=== PATIENT | female | born 1940 | race Caucasian/White ===

== ENCOUNTER → 2016-10-06 | Outpatient (CLI) | payer OTHER, MEDICARE ==
--- NOTE | 2016-10-06 15:29 | MR ---
MRI of the Left Shoulder History: Shoulder pain, impingement syndrome. Technique: Axial proton density, oblique coronal and sagittal T1 and T2 sequences were acquired. Findings: The supraspinatus tendon is diseased. There is evidence of undersurface partial-thickness t ear of the anterior distal fibers of supraspinatus, involving the articular surface 50% distally. The bursal surface fibers remain intact, although markedly attenuated, findings are compatible with a hi gh-grade partial tear. More posteriorly, there is evidence of infraspinatus tendinosis and fraying wi th small linear intrasubstance longitudinal split tears of distal fibers proximal to the greater tube rosity. Fluid appears to extend through the small split injuries into the subacromial bursa overlying the distal infraspinatus. Subscapularis tendinosis is present with increased T2 signal throughout the distal tendon, without te ar. Teres minor is intact. Long head biceps tendon is normally positioned and intact. Degenerative maceration of the superior labrum underneath the biceps anchor is present, without linea r tear or detachment. The articular cartilage of the glenohumeral joint is intact. The acromioclavicular joint is benign in features, with minimal capsular edema. Impression: 1. High-grade partial tear anterior distal fibers of supraspinatus at the greater tuberosity, with a few intact bursal surface fibers distally. 2. Longitudinal split tears involving the distal fibers of infraspinatus, multiple in number and smal l in size, with fluid extending through the small split injuries into the overlying subacromial bursa . 3. Minimal degenerative maceration superior glenoid labrum, without linear tear or detachment.
== END ==
LOC: FIMAGING 12:51
PROVIDERS: ATTEND Orthopaedic Surgery
DX: S46.812A Strain of other muscles, fascia and tendons at shoulder and upper arm level, left arm, initial encounter (principal)

== ENCOUNTER 2017-04-05 13:16 | Inpatient (IN) | payer OTHER, MEDICARE ==
[2017-04-05] MEDS ORDERED: ONDANSETRON DISINTEGRATING 4 MG TAB ONE (14:39)
[2017-04-05] MEDS ORDERED: ONDANSETRON DISINTEGRATING 4 MG TAB PO ONE (14:42)
[2017-04-05] MEDS ORDERED: ONDANSETRON 4 MG/2 ML VIAL ONE (15:39)
--- NOTE | 2017-04-05 15:47 | EDPHY ---
H & P Stated Complaint: n/v/d since this morning Time Seen by Provider: 04/05/17 15:47 - Personal History Current Tetanus/Diphtheria Vaccine: Yes - Medical/Surgical History Hx Asthma: No Hx Chronic Respiratory Disease: No Hx Diabetes: No Hx Cardiac Disease: No Hx Renal Disease: No Hx Cirrhosis: No Hx Alcoholism: No Hx HIV/AIDS: No Hx Splenectomy or Spleen Trauma: No Other PMH: PMH: HTN, vasculitis of kidney, hypothyroidism. PSH: ari, shoulder , left lung biopsy, Left lingular lower lobectomy, - Social History Smoking Status: Never smoked Constitutional: Initial Vital Signs Temperature (C) 36.5 C 04/05/17 13:21 Heart Rate 92 04/05/17 13:21 Respiratory Rate 18 04/05/17 13:21 Blood Pressure 141/70 H 04/05/17 13:21 O2 Sat (%) 95 04/05/17 13:21 O2 Delivery Mode Room Air Allergies/Adverse Reactions: hydrochlorothiazide Allergy (Severe, Verified 04/05/17 13:19) Rash Home Medications: Medication Instructions Recorded ALENDRONATE SODIUM [Fosamax 35mg] 35 mg PO WIN 02/01/16 Acetaminophen [Tylenol 325mg (*)] 325 - 650 mg PO DAILY PRN 02/01/16 Amlodipine Besylate 10 mg PO DAILY 02/01/16 Eszopiclone 3 mg PO HS PRN 02/01/16 Levothyroxine [Synthroid 75 mcg 75 mcg PO DAILY06 02/01/16 (*)] Metoprolol Succinate Xr [Toprol Xl 12.5 mg PO DAILY 02/01/16 25 mg (*)] Medical Decision Making - Diagnostics Imaging Results: Imaging Impressions Brain MRI 04/05/17 15:55 Impression: 1. Multiple bilateral cerebral and left cerebellar embolic acute lacunar infarcts, especially in the left cerebellar hemisphere and vermis, probably from cardiac emboli. 2. No acute hemorrhage, hydrocephalus, or mass effect. Findings and recommendations discussed with Emergency Department physician, Alan Bray M.D., at 1710 hours, on April 05, 2017. Final report concurs with initial preliminary interpretation. Imaging: Discussed imaging studies w/ dairy clerk Radiologist ED Course/Re-evaluation: CHIEF COMPLAINT: Dizziness with severe nausea and vomiting HISTORY OF PRESENT ILLNESS: 76-year-old female who was up camping at [facility]. She has not felt well for the last couple of days. She woke up this morning at 4am, 13.5 hours ago, and turned her head and suddenly felt quite dizzy. She was dizzy to the point where she had to crawl back to the camper to use the toilet and throw up because of the dizziness. Every time she moves or turns her head or changes positions it exacerbates the dizziness. When she lays completely still with her eyes closed the dizziness seems to extinguish. She only has the nausea when she has the dizziness. She denies any focal weakness of any body part or any extremity. She states she feels like she has severe motion sickness. She denies having this in the past. She denies any recent trauma or traumatic brain injury. She denies any recent illness. REVIEW OF SYSTEMS: A 10 point review of systems was performed and is negative with the exception of the elements mentioned in the history of present illness. PHYSICAL EXAM: HR, BP, O2 Sat, RR. Temp noted General Appearance: Alert, well hydrated, appropriate, and non-toxic appearing. Head: Atraumatic without scalp tenderness or obvious injury Eyes: Pupils equal, round, reactive to light and accommodation, EOMI, no trauma , no injection. Ears: Clear bilaterally, no perforation, normal landmarks Nose: Atraumatic, no rhinorrhea, clear. Throat: There is no erythema or exudates, no lesions, normal tonsils, mucus membranes moist. Neck: Supple, 2+ carotid upstroke, nontender, no lymphadenopathy. Respiratory: No retractions, no distress, no wheezes, and no accessory muscle use. Lungs are clear to auscultation bilaterally. Cardiovascular: Regular rate and rhythm, no murmurs, rubs, or gallops. Bilateral carotid, radial, dorsalis pedis, and posterior tibial pulses intact. Good capillary refill all extremities. Gastrointestinal: Abdomen is soft, nontender, non-distended, no masses, no rebound, no guarding, no peritoneal signs. Musculoskeletal: Normal active ROM of all extremities, atraumatic. Neurological: This patient has horizontal nystagmus worse to the right with Spencer maneuver. In addition, her symptoms extinguish rest. She has no focal neurologic deficits. Alert, appropriate, and interactive. The patient has normal DTRs and non-focal cranial nerves, motor, sensory, and cerebellar exam. Skin: No rashes, good turgor, no nodules on palpation. Past medical history: Hypertension Past surgical history: Noncontributory Family history: Noncontributory Social history: , retired, does not abuse tobacco drugs or alcohol DIAGNOSTICS/PROCEDURES/CRITICAL CARE TIME: Study: MRI of the: brain without contrast Indication: dizziness rule out cerebellar infarct Results: MRI scan of the brain was obtained. The results of the study are multiple bilateral cerebral and left cerebellar embolic acute lacunar infarcts, especially in the left cerebellar hemisphere and vermis. No acute hemorrhage, hydrocephalus, or mass effect. The study was read by the radiologist, Dr. Cruz. I viewed the images myself on the PACS system. The 12 lead EKG was interpreted by myself. See hard copy and/or "tracemaster" electronic copy for interpretation. Sinus mechanism. Rate 81. DIFFERENTIAL DIAGNOSIS: The differential diagnosis for the patient's dizziness included but was not limited to peripheral and central causes of vertigo, orthostatic causes including dehydration, cardiogenic and neurogenic causes, and blood loss. MEDICAL DECISION MAKING: Patient is most comfortable completely at rest with her eyes closed. I have given her 25 mg PO Meclizine, and 4mg of Zofran intravenously. We are doing an MRI of her brain to make sure this is not a cerebellar infarct. 17:[address] Cruz, radiologist. MRI shows multiple bilateral cerebral and left cerebellar embolic acute lacunar infarcts, especially in the left cerebellar hemisphere and vermis. No acute hemorrhage, hydrocephalus, or mass effect. Spoke with Dr. Villalta, neurologist. Plan for CTA head and neck. Hold on heparin at this point due to potential for cerebellar bleed. 17:[address] Ham, hospitalist. He accepts admission to med/surg. 17:36 Reassessed patient. Confirmed no history of strokes. Discussed admission. Patient is comfortable with this plan. CT Angiogram pending. - Data Points Laboratory Results: Laboratory Results 04/05/17 15:48 04/05/17 15:48 04/05/17 04/05/17 04/05/17 15:48 15:48 15:48 WBC 11.21 10^3/uL H 10^3/uL (3.80-9.50) RBC 4.86 10^6/uL 10^6/uL (4.18-5.33) Hgb 14.6 g/dL g/dL (12.6-16.3) Hct 42.9 % % (38.0-47.0) MCV 88.3 fL fL (81.5-99.8) MCH 30.0 pg pg (27.9-34.1) MCHC 34.0 g/dL g/dL (32.4-36.7) RDW 13.4 % % (11.5-15.2) Plt Count 239 10^3/uL 10^3/uL (150-400) MPV 9.6 fL fL (8.7-11.7) Neut % (Auto) 93.1 % H % (39.3-74.2) Lymph % (Auto) 3.3 % L % (15.0-45.0) [place] % (Auto) 3.0 % L % (4.5-13.0) Eos % (Auto) 0.0 % L % (0.6-7.6) Baso % (Auto) 0.1 % L % (0.3-1.7) Nucleat RBC Rel Count 0.0 % % (0.0-0.2) Absolute Neuts (auto) 10.43 10^3/uL H 10^3/uL (1.70-6.50) Absolute Lymphs (auto) 0.37 10^3/uL L 10^3/uL (1.00-3.00) Absolute Monos (auto) 0.34 10^3/uL 10^3/uL (0.30-0.80) Absolute Eos (auto) 0.00 10^3/uL L 10^3/uL (0.03-0.40) Absolute Basos (auto) 0.01 10^3/uL L 10^3/uL (0.02-0.10) Absolute Nucleated RBC 0.00 10^3/uL 10^3/uL (0-0.01) Immature Gran % 0.5 % % (0.0-1.1) Immature Gran # 0.06 10^3/uL 10^3/uL (0.00-0.10) PT 13.4 SEC SEC (12.0-15.0) INR 1.03 (0.83-1.16) APTT 28.6 SEC SEC (23.0-38.0) Sodium 143 mEq/L mEq/L (134-144) Potassium 4.5 mEq/L mEq/L (3.5-5.2) Chloride 109 mEq/L mEq/L (97-110) Carbon Dioxide 15 mEq/l L mEq/l (22-31) Anion Gap 19 mEq/L H mEq/L (8-16) BUN 28 mg/dL H mg/dL (7-23) Creatinine 1.3 mg/dL H mg/dL (0.6-1.0) Estimated GFR 40 Glucose 154 mg/dL H mg/dL (70-100) Calcium 10.2 mg/dL mg/dL (8.5-10.4) Medications Given: Discontinued Medications Aspirin (Aspirin) 324 mg PO EDNOW ONE Stop: 04/05/17 17:26 Last Admin: 04/05/17 17:47 Dose: 324 mg Sodium Chloride (Ns) 1,000 mls @ 0 mls/hr IV ONCE ONE PRN Reason: Wide Open Stop: 04/05/17 15:55 Last Admin: 04/05/17 15:54 Dose: 1,000 mls Meclizine HCl (Meclizine Hcl) 25 mg PO EDNOW ONE Stop: 04/05/17 15:56 Last Admin: 04/05/17 16:12 Dose: 25 mg Ondansetron HCl (Zofran Odt) 4 mg PO EDNOW ONE Stop: 04/05/17 14:43 Last Admin: 04/05/17 14:54 Dose: 4 mg Departure - Departure Referrals: Juno Carcamo MD [Primary Care Provider] - As per Instructions Report Scribed for: Alan Bray Report Scribed by: Mary Penaloza Date of Report: 04/05/17 Time of Report: 17:35
[2017-04-05 15:54] LABS: % IMMATURE GRANULYOCYTES 0.5 % (0.0-1.1); ABSOLUTE IMMATURE GRANULOCYTES 0.06 10^3/uL (0.00-0.10); ADD DIFF? NO; ADD MORPH? NO; ADD SCAN? NO; ATYPICAL LYMPHOCYTE FLAG 0 (0-99); FRAGMENT RBC FLAG 0 (0-99); HEMATOCRIT 42.9 % (38.0-47.0); HEMOGLOBIN 14.6 g/dL (12.6-16.3); LEFT SHIFT FLG 10 (0-99); LIPEMIA HEMOLYSIS FLAG 90 (0-99); MEAN CELL VOLUME 88.3 fL (81.5-99.8); MEAN PLATELET VOLUME 9.6 fL (8.7-11.7); PLATELET CLUMPS FLAG 0 (0-99); PLATELET COUNT 239 10^3/uL (150-400); RED BLOOD CELL COUNT 4.86 10^6/uL (4.18-5.33); RED CELL DISTRIBUTION WIDTH 13.4 % (11.5-15.2)
[2017-04-05] MEDS ORDERED: NS 1,000 ML IV ONE (15:54)
[2017-04-05] MEDS ORDERED: MECLIZINE HCL 25 MG TAB PO ONE (15:55)
[2017-04-05 16:08] LABS: ANION GAP 19 mEq/L (8-16); CALCIUM 10.2 mg/dL (8.5-10.4); CARBON DIOXIDE 15 mEq/l (22-31); CHLORIDE 109 mEq/L (97-110); CREATININE 1.3 mg/dL (0.6-1.0); GLOMERULAR FILTRATION RATE 40; GLUCOSE 154 mg/dL (70-100); POTASSIUM 4.5 mEq/L (3.5-5.2); SODIUM 143 mEq/L (134-144)
[2017-04-05] MEDS ORDERED: HEPARIN/DEXTROSE 500 ML IV ONE (17:18)
[2017-04-05] MEDS ORDERED: HEPARIN 10,000 UNIT/10 ML MDV IVP ONE (17:18)
[2017-04-05] MEDS ORDERED: ASPIRIN 81 MG CHEWABLE TAB PO ONE (17:25)
--- NOTE | 2017-04-05 17:28 | CPEKG ---
Heart Rate: 81 RR Interval: 741 P-R Interval: 196 QRSD Interval: 82 QT Interval: 408 QTC Interval: 474 P [place]: 70 QRS [place]: 31 T Wave [place]: 32 EKG Severity - NORMAL ECG - EKG Impression: SINUS RHYTHM Electronically Signed By: Alan Bray 05-Apr-2017 22:00:10
[2017-04-05 17:34] LABS: APTT 28.6 SEC (23.0-38.0); INR 1.03 (0.83-1.16); PROTIME(PATIENT) 13.4 SEC (12.0-15.0)
[2017-04-05] MEDS ORDERED: IOPAMIDOL (ISOVUE 370) 100 ML BTL IV ONE (17:34)
[2017-04-05] MEDS ORDERED: ACETAMINOPHEN 650 MG SUPP PR PRN (19:16)
[2017-04-05] MEDS ORDERED: ONDANSETRON 4 MG/2 ML VIAL IVP PRN (19:16)
[2017-04-05] MEDS ORDERED: NS 1,000 ML IV SCH (19:30)
--- NOTE | 2017-04-05 20:20 | PDGENHP ---
History and Physical - Chief Complaint acute vomiting - History of Present Illness primary care provider: Dr. Carcamo Primary corrugator supervisor: Dr. Jamison HPI: 76-year-old female presents with acute vomiting characterized as bilious, nonbloody emesis with associated nausea, severe dizziness, with onset of symptoms around 4:30 a.m. on the day of presentation. Symptoms have been persistent in duration, and the patient had otherwise been feeling well on the day prior to presentation. Dizziness has been exacerbated by standing, somewhat alleviated by lying still. she has otherwise been taking all of her home medications. She reports that prior to the onset of symptoms she had otherwise been eating and drinking normally. She denies any chest pain or palpitations during her regular physical activity. History Information - Allergies/Home Medication List Allergies/Adverse Reactions: hydrochlorothiazide Allergy (Severe, Verified 04/05/17 13:19) Rash Home Medications: ALENDRONATE SODIUM [Fosamax 35mg] 35 mg PO WIN 02/01/16 [Last Taken 01/25/16] Acetaminophen [Tylenol 325mg (*)] 325 - 650 mg PO DAILY PRN 02/01/16 [Last Taken 01/31/16] Amlodipine Besylate 10 mg PO DAILY 02/01/16 [Last Taken 04/04/17] Eszopiclone 3 mg PO HS 02/01/16 [Last Taken 04/04/17] Levothyroxine [Synthroid 75 mcg (*)] 75 mcg PO DAILY06 02/01/16 [Last Taken 07/12] Metoprolol Succinate Xr [Toprol Xl 25 mg (*)] 12.5 mg PO DAILY 02/01/16 [Last Taken 02/01/16] Atorvastatin Calcium [Lipitor 10 mg (*)] 10 mg PO DAILY 04/05/17 [Last Taken 07/12] Lisinopril [Zestril 10 mg (*)] 10 mg PO DAILY 04/05/17 [Last Taken 04/04/17] Omeprazole [Prilosec 20 mg] 20 mg PO DAILY 04/05/17 [Last Taken Unknown] I have personally reviewed and updated: family history, medical history, social history, surgical history - Past Medical History Additional medical history: 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 Hypertension. Hypothyroidism. 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 - Surgical History Additional surgical history: left shoulder, sinus, last transesophageal echocardiogram January of 2016 demonstrating no intra-atrial thrombus, mild mitral regurgitation - Family History Additional family history: mother with dementia and coronary artery disease in her 90s, father with intracranial hemorrhage in his 70s - Social History Smoking Status: Never smoked Alcohol Use: Occasionally Drug Use: None Additional social history: physically active, was camping with her during the onset of symptoms Review of Systems ROS: 10pt was reviewed & negative except for what was stated in HPI & below Gastrointestinal: Reports: vomitting, nausea Neurological: Reports: other ( dizziness and difficulty standing) Physical Exam Temp Pulse Resp BP Pulse Ox 36.9 C 83 20 146/70 H 95 04/05/17 19:21 04/05/17 19:57 04/05/17 19:57 04/05/17 19:57 04/05/17 20:00 O2 (L/minute) 2 Constitutional: no apparent distress, appears nourished, not in pain Eyes: PERRL, anicteric sclera, EOMI, other ( chronic right eye medial deviation) Ears, Nose, Mouth, Throat: moist mucous membranes, hearing normal, ears appear normal, no oral mucosal ulcers Cardiovascular: regular rate and rhythym, no murmur, rub, or gallop, No edema Respiratory: no respiratory distress, no rales or rhonchi, clear to auscultation Gastrointestinal: normoactive bowel sounds, soft, non-tender abdomen, no palpable masses Genitourinary: no bladder fullness, no bladder tenderness Neurologic: AAOx3, sensation intact bilaterally, CN II-XII Intact, No weakness Psychiatric: interacting appropriately, not anxious, not encephalopathic, thought process linear Lab Data & Imaging Review 04/05/17 15:48 04/05/17 15:48 WBC 11.21 10^3/uL (3.80-9.50) H 04/05/17 15:48 RBC 4.86 10^6/uL (4.18-5.33) 04/05/17 15:48 Hgb 14.6 g/dL (12.6-16.3) 04/05/17 15:48 Hct 42.9 % (38.0-47.0) 04/05/17 15:48 MCV 88.3 fL (81.5-99.8) 04/05/17 15:48 MCH 30.0 pg (27.9-34.1) 04/05/17 15:48 MCHC 34.0 g/dL (32.4-36.7) 04/05/17 15:48 RDW 13.4 % (11.5-15.2) 04/05/17 15:48 Plt Count 239 10^3/uL (150-400) 04/05/17 15:48 MPV 9.6 fL (8.7-11.7) 04/05/17 15:48 Neut % (Auto) 93.1 % (39.3-74.2) H 04/05/17 15:48 Lymph % (Auto) 3.3 % (15.0-45.0) L 04/05/17 15:48 [place] % (Auto) 3.0 % (4.5-13.0) L 04/05/17 15:48 Eos % (Auto) 0.0 % (0.6-7.6) L 04/05/17 15:48 Baso % (Auto) 0.1 % (0.3-1.7) L 04/05/17 15:48 Nucleat RBC Rel Count 0.0 % (0.0-0.2) 04/05/17 15:48 Absolute Neuts (auto) 10.43 10^3/uL (1.70-6.50) H 04/05/17 15:48 Absolute Lymphs (auto) 0.37 10^3/uL (1.00-3.00) L 04/05/17 15:48 Absolute Monos (auto) 0.34 10^3/uL (0.30-0.80) 04/05/17 15:48 Absolute Eos (auto) 0.00 10^3/uL (0.03-0.40) L 04/05/17 15:48 Absolute Basos (auto) 0.01 10^3/uL (0.02-0.10) L 04/05/17 15:48 Absolute Nucleated RBC 0.00 10^3/uL (0-0.01) 04/05/17 15:48 Immature Gran % 0.5 % (0.0-1.1) 04/05/17 15:48 Immature Gran # 0.06 10^3/uL (0.00-0.10) 04/05/17 15:48 PT 13.4 SEC (12.0-15.0) 04/05/17 15:48 INR 1.03 (0.83-1.16) 04/05/17 15:48 APTT 28.6 SEC (23.0-38.0) 04/05/17 15:48 Sodium 143 mEq/L (134-144) 04/05/17 15:48 Potassium 4.5 mEq/L (3.5-5.2) 04/05/17 15:48 Chloride 109 mEq/L (97-110) 04/05/17 15:48 Carbon Dioxide 15 mEq/l (22-31) L 04/05/17 15:48 Anion Gap 19 mEq/L (8-16) H 04/05/17 15:48 BUN 28 mg/dL (7-23) H 04/05/17 15:48 Creatinine 1.3 mg/dL (0.6-1.0) H 04/05/17 15:48 Estimated GFR 40 04/05/17 15:48 Glucose 154 mg/dL (70-100) H 04/05/17 15:48 Calcium 10.2 mg/dL (8.5-10.4) 04/05/17 15:48 Visualized and Interpreted EKG results: Yes EKG Interpretation: Positive for: other ( normal sinus rhythm) Assessment & Plan Assessment: 76-year-old female presents with acute CVA, likely cardioembolic source Plan: 1. CVA. Acute, new problem this provider, further workup indicated. Evidenced by MRI with bilateral emboli in the parietal, frontal, cerebellar areas, most notably in the left posterior cerebellar distribution. Symptoms include nausea vomiting and ataxia. -stroke order set placed -is outside the window for tPA -discussed with Dr. Bray in the emergency department, he has reported to me that he has discussed the case with Dr. Villalta and neurology will consult in the a.m.,, recommended full-dose aspirin at this time holding on systemic anticoagulation given her risk of hemorrhagic conversion -CT angiograms demonstrating no large vessel occlusion -lipid panel and hemoglobin A1c to be drawn -reviewed outside records including 02/03/2016 transesophageal echocardiogram demonstrating normal ejection fraction, LVH, diastolic dysfunction, mild mitral regurgitation, no atrial thrombus -LIQUOR ESTABLISHMENT MANAGER eval, PT OT and case management for possible inpatient rehab -discussed with Dr. Matthew Aly, he agrees that transesophageal echocardiogram to evaluate for possible left atrial source is indicated and will keep the patient NPO after midnight for possible BRITANY in the morning -continue to monitor on telemetry to evaluate for atrial fibrillation 2. Chronic kidney disease. Stage IV, creatinine is currently baseline, she has received a contrast load for CT angiogram and she will receive ongoing normal saline overnight, with creatinine level monitoring during this hospitalization 3. Hypertension. Continue home medications, permissive hypertension overnight Diet. NPO with LIQUOR ESTABLISHMENT MANAGER eval for swallow, cardiac diet thereafter Prophylaxis. High risk patient, SCDs, pharm contraindicated given possibility of hemorrhagic conversion Code. Full per patient, his MD POA Disposition. anticipated discharge uncertain this time, anticipated length stay is greater than 48 hours warranting inpatient admission status for acute CVA rendering patient ataxic and unable to safely ambulate with high risk for worsening morbidity and requiring ongoing workup as outlined above.
[2017-04-05] MEDS: ZOLPIDEM TARTRATE 5 MG TAB PO SCH (22:43)
[2017-04-06] MEDS: LEVOTHYROXINE 75 MCG TAB PO SCH (05:24)
[2017-04-06 05:53] LABS: % IMMATURE GRANULYOCYTES 0.9 % (0.0-1.1); ABSOLUTE IMMATURE GRANULOCYTES 0.09 10^3/uL (0.00-0.10); ADD DIFF? NO; ADD MORPH? NO; ADD SCAN? NO; ATYPICAL LYMPHOCYTE FLAG 0 (0-99); FRAGMENT RBC FLAG 0 (0-99); HEMATOCRIT 35.8 % (38.0-47.0); HEMOGLOBIN 11.9 g/dL (12.6-16.3); LEFT SHIFT FLG 10 (0-99); LIPEMIA HEMOLYSIS FLAG 80 (0-99); MEAN CELL HEMOGLOBIN CONCENTR. 33.2 g/dL (32.4-36.7); MEAN CELL VOLUME 90.2 fL (81.5-99.8); MEAN PLATELET VOLUME 9.7 fL (8.7-11.7); PLATELET CLUMPS FLAG 0 (0-99); PLATELET COUNT 203 10^3/uL (150-400); RED BLOOD CELL COUNT 3.97 10^6/uL (4.18-5.33); RED CELL DISTRIBUTION WIDTH 13.5 % (11.5-15.2)
[2017-04-06 06:18] LABS: ANION GAP 11 mEq/L (8-16); CALCIUM 8.9 mg/dL (8.5-10.4); CARBON DIOXIDE 18 mEq/l (22-31); CHLORIDE 113 mEq/L (97-110); CHOLESTEROL 130 mg/dL (140-220); CHOLESTEROL/HDL RATIO 1.83 RATIO (1.00-4.44); CREATININE 1.2 mg/dL (0.6-1.0); GLOMERULAR FILTRATION RATE 44; GLUCOSE 85 mg/dL (70-100); HIGH DENSITY LIPOPROTEIN 71 mg/dL (40-85); LOW DENSITY LIPOPROTEIN 50 mg/dL (80-100); NON-HIGH DENSITY LIPOPROTEIN 59 mg/dL (90-129); POTASSIUM 4.5 mEq/L (3.5-5.2); SODIUM 142 mEq/L (134-144); TRIGLYCERIDE 48 mg/dL (35-135); VERY LOW DENSITY LIPOPROTEINS 9 mg/dL (8-25)
[2017-04-06 10:02] LABS: HEMOGLOBIN A1C 5.5 % (4.0-6.0)
--- NOTE | 2017-04-06 11:57 | HOSPPROG ---
Hospitalist Progress Note Assessment/Plan: #Acute embolic stroke: emboli to parietal, frontal, cerebellum. NSR on EKG.CTA normal. Appreciate Neuro and Cards consult. BRITANY shows mobile lesion on posterior MV annulus. DDx: less likely fibroelastoma since not present on BRITANY 2016. No thrombus, so favor vegetation. Eval for endocarditis with blood cultures, ESR/CRP. No recent dental surgeries. If negative infectious eval, will evaluate further with cardiac MRI -PT/OT/PRODUCT MANAGER. #CKD: Cr stable at 1.2 #h/o vasculitis #Hypothyroidism: LT4 #Hypertension: stable #GERD: PPI #Diet: regular #DVT ppx: ASA, SCDs #Disp: warrants inpt admission with acute CVA, cont Subjective: no focal weakness or slurred speech Objective: Vital Signs Temp Pulse Resp BP Pulse Ox 36.4 C 89 14 131/70 H 97 04/06/17 11:11 04/06/17 11:11 04/06/17 11:11 04/06/17 11:11 04/06/17 11:11 Laboratory Results 04/06/17 05:23 04/06/17 05:23 04/05/17 04/06/17 04/07/17 05:59 05:59 05:59 Intake Total 1837 Balance 1837 PT 13.4 SEC (12.0-15.0) 04/05/17 15:48 INR 1.03 (0.83-1.16) 04/05/17 15:48 - Physical Exam Constitutional: no apparent distress Eyes: PERRL Ears, Nose, Mouth, Throat: moist mucous membranes, hearing normal Cardiovascular: regular rate and rhythym, no murmur, rub, or gallop (soft murmur ) Respiratory: no respiratory distress Gastrointestinal: normoactive bowel sounds Genitourinary: no bladder fullness Skin: warm Musculoskeletal: full muscle strength Neurologic: AAOx3, CN II-XII Intact Psychiatric: interacting appropriately ICD10 Worksheet Patient Problems: Problems Problem Status Onset Chest pain Acute Elevated d-dimer Acute Elevated troponin Acute
[2017-04-06] MEDS ORDERED: MIDAZOLAM 2 MG/2 ML VIAL ONE ×2 (13:00→13:01)
[2017-04-06] MEDS ORDERED: fentaNYL 100 MCG/2 ML INJ ONE (13:01)
--- NOTE | 2017-04-06 14:54 | ECHO ---
[id number] + + [address] : : [facility] [address] : : [phone] + + Transesophageal Echocardiographic Report + ------+ :Name: Ladan HURTADO Date: 04/06/2017 01:26 PM : : Hospital Admission Number: [id number] Locatio n: CVC: :: 1940 Gender: Female : :Age: 76 yrs Race: WH : :Reason For Study: Ischemic stroke : + ------+ Left Ventricle Left ventricular systolic function is normal. Atria Injection of contrast documented no interatrial shunt. No thrombus is detected in the left atrial appendage. Mitral Valve There is a hyperechoic stucture associated with the posterior mitral valve annulus. This measures 0.4 x 0.8 cm. Differential diagnosis includes vegetation, fibroelastoma, or less likely thrombus. There is mild to moderate mitral regurgitation. Tricuspid Valve Normal tricuspid valve. There is trace to mild tricuspid regurgitation. Aortic Valve The aortic valve is trileaflet. Mildly calcified NCC of the aortic valve. Trace to mild aortic regurgitation. Pulmonic Valve The pulmonic valve is normal in structure and function. Conclusion A 2D transesophageal echocardiogram with color flow Doppler was performed. Left ventricular systolic function is normal. Injection of contrast documented no interatrial shunt. No thrombus is detected in the left atrial appendage. There is mild to moderate mitral regurgitation. Mildly calcified NCC of the aortic valve. Trace to mild aortic regurgitation. There is a hyperechoic stucture associated with the posterior mitral valve annulus. This measures 0.4 x 0.8 cm. Differential diagnosis includes vegetation, fibroelastoma, or less likely thrombus. There is trace to mild tricuspid regurgitation. Compared with BRITANY dated 02/03/2016, mitral valve lesion was not present on prior study. Results discussed with Dr. Woods Final Reading Physician: Dr Angeles Lipscomb electronically signed on 04/06/2017 02:52 PM Ordering Physician: Calixto Ham Performed By: Dr Angeles Lipscomb
[2017-04-06] MEDS: LISINOPRIL 10 MG TAB PO SCH (16:48)
[2017-04-06] MEDS: METOPROLOL SUCCINATE XR 25 MG TAB PO SCH (16:49)
[2017-04-06] MEDS: ASPIRIN EC 325 MG TAB PO SCH (16:49)
[2017-04-06] MEDS: ATORVASTATIN CALCIUM 10 MG TAB PO SCH (16:49)
[2017-04-06] MEDS: PANTOPRAZOLE SODIUM 40 MG TAB PO SCH (17:20)
[2017-04-06 18:45] LABS: HEMATOCRIT 35.8 % (38.0-47.0)
[2017-04-06 20:26] LABS: ALANINE AMINOTRANSFERASE 27 IU/L (9-52); ALBUMIN 3.3 g/dL (3.5-5.0); ALKALINE PHOSPHATASE 70 IU/L (38-126); ASPARTATE AMINOTRANSFERASE 28 IU/L (14-46); BILIRUBIN,TOTAL 0.6 mg/dL (0.1-1.4); BILIRUBIN-CONJUGATED 0.3 mg/dL (0.0-0.5); BILIRUBIN-UNCONJUGATED 0.3 mg/dL (0.0-1.1); TOTAL PROTEIN 6.1 g/dL (6.3-8.2)
--- NOTE | 2017-04-06 21:09 | GCON ---
[f rep st] CONSULTATION CARDIOLOGY CONSULT DATE OF CONSULTATION: 04/06/2017 PRIMARY CARE: Anirudh Carcamo M.D. OPERATING ROOM AIDE: Arturo Riley M.D. PLANT AND EQUIPMENT WORKER: Noah Jamison M.D. CHIEF COMPLAINT: Stroke. HISTORY OF PRESENT ILLNESS: We were asked by Dr. Woods to visit with the patient. 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 She has a history of hypertension and chronic renal insufficiency. 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 She has no known history of arrhy thmia. 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 This was perfo rmed when she was admitted with chest pain syndrome and probable myopericarditis. At that time she also had a BRITANY for some abnormality seen on aortic valve on transthoracic imaging. Her BRITANY showed s ome nodular calcification of the aortic valve, specifically the noncoronary cusp, but no obvious veg etation or other valvular lesion. She was in her usual state of good health until yesterday morning. She had fairly sudden onset of n ausea, vertigo and lightheadedness. She did not fall, but she had to get down onto the ground becau se she was so off balance. She was severely nauseated. She denies any chest pain or palpitations. Because of her symptoms, she was brought to the emergency department and brain imaging was notable f or multiple bilateral cerebral and left cerebellar acute embolic lacunar infarcts. There is no hemo rrhage. Head and neck CTA did not show any vascular issues. She was admitted for observation. She was outside of the window for tPA. This morning she reports the nausea is a little bit better. She does not feel acutely dizzy at the moment. Again, she denies any history of palpitations. She does have chronic exertional dyspnea th at has gotten a little bit worse over the past several months. No lower extremity edema, paroxysmal nocturnal dyspnea, or orthopnea. REVIEW OF SYSTEMS: A full 10-point review of systems was performed and is negative except that whic h is outlined in the history of present illness. ALLERGIES: No known drug allergies. PAST MEDICAL HISTORY: 1. Hypertension. 2. Chronic renal insufficiency related p-ANCA vasculitis. 3. 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 4. Hypothyroidism. SURGICAL HISTORY: 1. Left shoulder surgery. 2. Sinus surgery. SOCIAL HISTORY: The patient is a retired nurse. She does not smoke cigarettes and drinks alcohol i n moderation. FAMILY HISTORY: Not applicable to the current case. PHYSICAL EXAMINATION: VITAL SIGNS: Blood pressure 122/69, heart rate 68, oxygen saturation 98% on 2 L, respiratory rate is 15. She is afebrile. GENERAL: Well-appearing older female in no acute di stress. HEENT: Sclerae clear. No jaundice. Mucous members are moist. Normocephalic, atraumatic. Normal dentition. CARDIOVASCULAR: JVP is less than 10. Carotids equal and 2+ without bruit. Re gular rate and rhythm with a 1/6 early systolic murmur at the left lower sternal border. No S3. No S4. No rub. LUNGS: Clear to auscultation bilaterally without wheezes, rhonchi, or rales. ABDOME N: Soft, nontender, nondistended without bruits, masses, or hepatosplenomegaly. EXTREMITIES: Warm , well perfused without cyanosis, clubbing, or edema. NEURO: Alert and oriented x3 without gross f ocal neurologic deficits. Appropriate mood and affect. LABORATORY DATA: White count is 9.68 with hematocrit 35.8 and platelets are 203. INR is normal. S odium 142, potassium 4.5, chloride 113, bicarb 18, BUN 24, creatinine 1.2 was actually below her usu al baseline. Her hemoglobin A1c is 5.5, glucose is 85, LDL cholesterol is 50. EKG reviewed by me shows sinus rhythm. Telemetry reviewed by me shows sinus rhythm. Brain MRI and neck and head CTA as detailed above. ASSESSMENT AND PLAN: A 76-year-old female with hypertension, chronic renal insufficiency, known LAD muscle bridge, presents with acute stroke that appears to be embolic in etiology given the multiple lesions on brain MRI. This is certainly concerning for cardioembolic source. 1. Stroke: Likely cardioembolic. She has been in sinus rhythm, but may have occult paroxysmal atr ial fibrillation. We will proceed with transesophageal echocardiogram today. Risks, benefits, and alternatives were discussed with the patient. She is willing to proceed. 2. Hypertension: Currently well controlled. Continue outpatient medications. 3. 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 She is currently not having chest sundeep n. Agree with initiation of aspirin. She is also well medically managed from a primary prevention standpoint with goal LDL on atorvastatin. 4. Chronic renal insufficiency: At or below baseline. She is followed as an outpatient by Dr. Jon stein. Thank you for allowing us to participate in the patient's care. More management decisions can be ma de after her BRITANY. /[id number]/MODL
[2017-04-06] MEDS: ZOLPIDEM TARTRATE 5 MG TAB PO SCH (21:27)
[2017-04-07] MEDS: LEVOTHYROXINE 75 MCG TAB PO SCH (05:25)
[2017-04-07 05:26] LABS: HEMOGLOBIN 11.8 g/dL (12.6-16.3); MEAN CELL HEMOGLOBIN 30.2 pg (27.9-34.1); MEAN CELL HEMOGLOBIN CONCENTR. 33.7 g/dL (32.4-36.7); MEAN CELL VOLUME 89.5 fL (81.5-99.8); RED BLOOD CELL COUNT 3.91 10^6/uL (4.18-5.33); RED CELL DISTRIBUTION WIDTH 13.3 % (11.5-15.2)
[2017-04-07 05:48] LABS: ANION GAP 9 mEq/L (8-16); CALCIUM 9.4 mg/dL (8.5-10.4); CARBON DIOXIDE 20 mEq/l (22-31); CHLORIDE 111 mEq/L (97-110); CREATININE 1.1 mg/dL (0.6-1.0); GLOMERULAR FILTRATION RATE 48; GLUCOSE 84 mg/dL (70-100); POTASSIUM 4.3 mEq/L (3.5-5.2); SODIUM 140 mEq/L (134-144)
--- NOTE | 2017-04-07 06:46 | GCON ---
[f rep st] CONSULTATION REFERRING PHYSICIAN: Romelia Woods MD CHIEF COMPLAINT: Strokes. BILLING INFORMATION: 70 total minutes floor time in reviewing past medical records, current medical records, reviewing MRI images, and in direct counseling with the patient and her family. This also included coordination of care with other services. HISTORY OF PRESENT ILLNESS: Ms. Rader is a very pleasant 76-year-old lady who has a remote history of vasculitis affecting renal vessels around 15 years ago. She was camping at [place] in a camper when she woke up at 5 a.m. yesterday with vertigo and nausea that led to some vomiting. There was no other focal neurologic deficits she or her family noted. Her did note, however, she was unable to stand or walk due to balance problems, though patient states this was from the vertigo but acknowledges she may have had some ataxia as well. No laterality to her symptoms. Because of these symptoms she came to our emergency department and was found to have multiple bilateral infarcts, small in diameter and concentrated in the left cerebellar region. The pattern of bilateral multiple infarcts suggested a proximal source, cardiac. She had CTA of the head and neck, which both were normal without any vascular lesions. Initial ECG and telemetry shows sinus rhythm at this point. She has no known history of dysrhythmia. Interestingly, transesophageal echocardiogram does show a mitral valve lesion measuring 0.4 x 0.8 cm which the differential diagnosis may include a vegetation fibroelastoma or less likely thrombus according to the interpretation. Past medical history, family history, medications, and allergies see the history and physical by Dr. Ham. PHYSICAL EXAMINATION: VITAL SIGNS: Blood pressure 127/62, temperature 36.4, heart rate 67, respiratory rate 15. GENERAL: No acute distress. Very pleasant. HIGHER MENTAL FUNCTION: She is awake and alert. Has no aphasia or dysarthria. 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 Otherwise cranial nerve exam was normal 2 through 7, 11, and 12. Motor: She does have some slight weakness in the left upper extremity with external rotation. However, this may be due to recent rotator cuff surgery. Otherwise no focal weakness. Sensory: Normal to light touch throughout. Coordination: Abnormal with appendicular ataxia in the left arm with finger- nose-finger. Coordination in the lower extremities was symmetric. IMPRESSION AND PLAN: 1. Multiple, Bilateral Cardioembolic strokes, maximal in the left cerebellar hemisphere 2. Mitral valve lesion. We discussed at length with the patient regarding the mitral valve lesion as the mechanism of her strokes. The question now is what is the mitral valve lesion. The team has drawn blood cultures and inflammatory markers to investigate infective endocarditis. She does not appear ill or have any of the other stigmata to suggest infective endocarditis at this time. We also note her past history of autoimmune vasculitis. This may raise the question of a Wtserg-Jqcpa-teqm lesion in the setting of autoimmunity. She is on a full-dose aspirin, since the emergency department, of 325 mg daily. I recommend we continue anti-platelet therapy (rather than full dose anticoagulation) because the risk of hemorrhagic conversion maybe catastrophic in the posterior fossa leading to high mortality and morbidity. The earliest I would suggest anticoagulation, if indicated, would be 14 days from the stroke. This would mean starting potential anticoagulation on April 19, 2017. She will need speech, occupational and physical therapy consults. I will follow along closely with Hospital Medicine and Cardiology. Thank you for this consultation. /[id number]/MODL MTDD
[2017-04-07] MEDS: ASPIRIN EC 325 MG TAB PO SCH (08:13)
[2017-04-07] MEDS: LISINOPRIL 10 MG TAB PO SCH (08:13)
[2017-04-07] MEDS: METOPROLOL SUCCINATE XR 25 MG TAB PO SCH (08:13)
[2017-04-07] MEDS: PANTOPRAZOLE SODIUM 40 MG TAB PO SCH (08:13)
[2017-04-07] MEDS: ATORVASTATIN CALCIUM 10 MG TAB PO SCH (08:13)
[2017-04-07] MEDS: ONDANSETRON DISINTEGRATING 4 MG TAB PO PRN ×3 (08:15→21:13)
--- NOTE | 2017-04-07 08:58 | HOSPPROG ---
Hospitalist Progress Note Assessment/Plan: #Acute embolic stroke: emboli to parietal, frontal, cerebellum. NSR on EKG.CTA normal. Appreciate Neuro and Cards consult. BRITANY shows mobile lesion on posterior MV annulus. DDx: fibroelastoma vs endocarditis or vasculitis. Labs pending: bld cx, ANCAs -no full anticoagulation for [address] Villalta discussed case with specialist at [facility]. If any neuro changes, CTA head/neck #CKD: Cr stable at 1.2 #h/o vasculitis: prior P-ANCA years ago #Hypothyroidism: LT4 #Hypertension: stable #GERD: PPI #Diet: regular #DVT ppx: ASA, SCDs #Disp: warrants inpt admission with acute CVA, cont neuro check Subjective: nausea this morning Objective: Vital Signs Temp Pulse Resp BP Pulse Ox 36.8 C 73 15 134/79 H 96 04/07/17 08:00 04/07/17 08:00 04/07/17 08:00 04/07/17 08:00 04/07/17 08:00 Laboratory Results 04/07/17 05:11 04/07/17 05:11 04/06/17 04/07/17 04/08/17 05:59 05:59 05:59 Intake Total 1837 200 Output Total 554 Balance 1837 -354 PT 13.4 SEC (12.0-15.0) 04/05/17 15:48 INR 1.03 (0.83-1.16) 04/05/17 15:48 - Physical Exam Constitutional: no apparent distress Eyes: PERRL Ears, Nose, Mouth, Throat: moist mucous membranes Cardiovascular: regular rate and rhythym Respiratory: no respiratory distress, no rales or rhonchi Gastrointestinal: normoactive bowel sounds, soft, non-tender abdomen Genitourinary: no bladder fullness Skin: warm Musculoskeletal: full muscle strength Neurologic: CN II-XII Intact, other (difficulty with ksulhy-ip-freo) ICD10 Worksheet Patient Problems: Problems Problem Status Onset Chest pain Acute Elevated d-dimer Acute Elevated troponin Acute
--- NOTE | 2017-04-07 09:33 | NEUROPROG ---
Assessment: 1. Multiple, bilateral cardioembolic strokes, maximal left cerebellar 2. Mitral valve lesion, etiology unknown 3. Remote history of vasculitis of renal vasculature The patient remains stable overnight. No further events. Autoimmune labs are pending. I did discuss her case with the neurovascular subspecialist at [facility] (Dr. Lobato). They also concurred with the plan of holding any full anticoagulation for 14 days due to risk of hemorrhagic conversion in the posterior fossa and associated morbidity and mortality. If the patient has any acute neurologic changes in the interim, the plan will be to call an acute inpatient stroke alert and do CTA of the head and neck. If she has any large vessel occlusion, we will transfer her immediately to [facility] for endovascular treatment. Otherwise, we will continue aspirin daily and continue to evaluate the mitral valve lesion. Blood cultures and autoimmune labs are pending as noted above. PT, OT and speech therapies. We will follow up on the above Subjective: No new symptoms Objective: Vital Signs Temp Pulse Resp BP Pulse Ox 36.8 C 73 15 134/79 H 96 04/07/17 08:00 04/07/17 08:00 04/07/17 08:00 04/07/17 08:00 04/07/17 08:00 Laboratory Results 04/07/17 05:11 04/07/17 05:11 04/06/17 04/07/17 04/08/17 05:59 05:59 05:59 Intake Total 1837 200 Output Total 554 Balance 1837 -354 PT 13.4 SEC (12.0-15.0) 04/05/17 15:48 INR 1.03 (0.83-1.16) 04/05/17 15:48 Awake and alert, no aphasia Appendicular ataxia in the left upper extremity with [id number] Allergies/Adverse Reactions: hydrochlorothiazide Allergy (Severe, Verified 04/05/17 13:19) Rash
[2017-04-07 14:09] LABS: ANTINUCLEAR ANTIBODIES SCREEN 0.89 UNITS (<=1.00)
--- NOTE | 2017-04-07 16:50 | PDCARPN ---
Cardiology Progress Note Assessment/Plan: Assessment/plan: 76-year-old female with hypertension and chronic renal insufficiency related to P-ANCA vasculitis. Admitted April 05 with acute stroke. MRI shows multiple embolic appearing lesions, most most concentrated in the cerebellum which would explain her clinical presentation of ataxia and nausea. BRITANY on April 06 demonstrates a subcentimeter lesion associated with posterior mitral valve annulus. This was not present on BRITANY in January of 2016, and is the most likely explanation for her stroke. The left atrial appendage did not contain thrombus. She has not had atrial fibrillation on telemetry. 1. Stroke: Embolic. Likely related to mitral valve lesion. The differential diagnosis of this lesion includes bacterial endocarditis, Magno-Sacks type endocarditis, or fibroelastoma. I think the latter is unlikely as it was not present a year ago. She certainly does not act like active infection. Blood cultures have been negative. Vasculitis labs are pending. Aspirin is reasonable at this time. In discussion with Dr. Villalta of Neurology, we will avoid systemic anticoagulation other than aspirin for at least 2 weeks as she is at high risk for hemorrhagic transformation of her cerebellar stroke. Will also discuss with CT surgery, whether she should be considered for removal of this lesion. It may be worth a repeat BRITANY in approximately 4 weeks. 2. Mitral valve lesion: As detailed above. 3. Hypertension: Currently well controlled. 4. Chronic renal insufficiency: Her creatinine is actually currently below baseline. 5. History of P-ANCA vasculitis: She is not acting like active vasculitis. Rheumatological labs are pending. 04/07/17 16:53 Subjective: Maisha still has nausea. Her ataxia has improved slightly. No cardiac symptoms. We discussed the fact that she gets regular dental checkups. No recent dental work. She denies IV drug use. She has not had fevers or chills at home. She has not had a rash home. She denies any history of thromboembolism in the past. She had no miscarriages. Reviewed/Discussed With: family, hospitalist Objective: Vital Signs (8 Hrs) Temp Pulse Resp BP Pulse Ox 04/07/17 15:44 37.2 C 59 L 15 123/59 H 94 04/07/17 11:17 37.0 C 55 L 15 115/60 97 Intake/Output (24 Hrs) 04/06/17 04/07/17 04/08/17 05:59 05:59 05:59 Intake Total 1837 200 Output Total 554 Balance 1837 -354 Intake: Oral (ml) 150 200 IV Infused (ml) 1687 Ns 1,000 ml @ 100 mls/hr 687 IV CONT GURMEET Rx#: [id number] Output: Urine (ml) 554 Bedpan 4 Bedside Commode 550 Other: Weight 58.967 kg Number of Voids 1 Bedpan 0 Bedside Commode 1 Number of Emesis 1 Occurrences NAD, lying flat in bed JVP <10. RRR soft early systolic murmur at the apex. Lungs clear to auscultation bilaterally. Extremities are warm well perfused without cyanosis clubbing or edema Skin clean dry and intact. No lesions. No splinter hemorrhages. No conjunctiva lesions. No oral lesions. Result Diagrams: 04/07/17 05:11 04/07/17 05:11 Telemetry: [place] ICD10 Worksheet Patient Problems: Problems Problem Status Onset Chest pain Acute Elevated troponin Acute Elevated d-dimer Acute
[2017-04-07] MEDS: ZOLPIDEM TARTRATE 5 MG TAB PO SCH (21:13)
[2017-04-08 05:32] LABS: ANION GAP 10 mEq/L (8-16); CALCIUM 9.3 mg/dL (8.5-10.4); CARBON DIOXIDE 21 mEq/l (22-31); CHLORIDE 108 mEq/L (97-110); CREATININE 1.2 mg/dL (0.6-1.0); GLOMERULAR FILTRATION RATE 44; GLUCOSE 80 mg/dL (70-100); POTASSIUM 4.3 mEq/L (3.5-5.2); SODIUM 139 mEq/L (134-144)
[2017-04-08] MEDS: LEVOTHYROXINE 75 MCG TAB PO SCH (06:34)
[2017-04-08 07:43] VITALS: TEMP 98.3
[2017-04-08] MEDS ORDERED: LEVOTHYROXINE 75 MCG TAB PO SCH (08:00)
[2017-04-08] MEDS: ASPIRIN EC 325 MG TAB PO SCH (08:21)
[2017-04-08] MEDS: PANTOPRAZOLE SODIUM 40 MG TAB PO SCH (08:21)
[2017-04-08] MEDS: ATORVASTATIN CALCIUM 10 MG TAB PO SCH (08:21)
[2017-04-08] MEDS: LISINOPRIL 10 MG TAB PO SCH (08:21)
[2017-04-08] MEDS: METOPROLOL SUCCINATE XR 25 MG TAB PO SCH (08:22)
[2017-04-08 12:09] VITALS: BP 138/75; PULSE 56; RESP 16; O2SAT 96
--- NOTE | 2017-04-08 12:20 | PDCARPN ---
Cardiology Progress Note Assessment/Plan: Assessment/plan: 76-year-old female with hypertension and chronic renal insufficiency related to past history of P-ANCA vasculitis. Admitted April 05 with acute stroke. MRI shows multiple embolic appearing lesions, most concentrated in the cerebellum which would explain her clinical presentation of ataxia and nausea. BRITANY on April 06 demonstrates a subcentimeter lesion associated with posterior mitral valve annulus. This was not present on BRITANY in January of 2016, and is the most likely explanation for her stroke. The left atrial appendage did not contain thrombus. She has not had atrial fibrillation on telemetry. 1. Stroke: Embolic. Likely related to mitral valve lesion. The differential diagnosis of this lesion includes bacterial endocarditis, thrombus, Magno- Sacks type endocarditis, or fibroelastoma. I think the latter is unlikely as it was not present a year ago. She certainly does not act like active infection. Blood cultures have been negative. Vasculitis labs are pending. Aspirin is reasonable at this time. In discussion with Dr. Villalta of Neurology, we will avoid systemic anticoagulation other than aspirin for at least 2 weeks as she is at high risk for hemorrhagic transformation of her cerebellar stroke. In 2 weeks, start Eliquis. Will review BRITANY with CT surgery. Recommend repeat BRITANY in 4-6 weeks. Also have ordered 30 day outpatient event recorder to assess for occult AF 2. Mitral valve lesion: As detailed above. 3. Hypertension: Currently well controlled. 4. Chronic renal insufficiency: Her creatinine is stable. 5. History of P-ANCA vasculitis: She is not acting like active vasculitis. Rheumatological labs are pending. Will sign off. Outpatient cardiology follow up as detailed above. 04/08/17 12:20 Subjective: Maisha feels better. Nausea and ataxia much improved. Ate breakfast Objective: Vital Signs (8 Hrs) Temp Pulse Resp BP Pulse Ox 04/08/17 12:00 36.8 C 56 L 16 138/75 H 96 04/08/17 10:57 134/67 H 04/08/17 08:22 124/66 H 04/08/17 08:21 124/66 H 04/08/17 07:39 36.8 C 57 L 14 124/66 H 95 Intake/Output (24 Hrs) 04/07/17 04/08/17 04/09/17 05:59 05:59 05:59 Intake Total 200 200 Output Total 554 450 Balance -354 -250 Intake: Oral (ml) 200 200 Output: Urine (ml) 554 450 Bedpan 4 Bedside Commode 550 Toilet 450 Other: Number of Voids Bedside Commode 1 3 Toilet 2 Number of Emesis 1 Occurrences NAD JVP <10 RRR no m/r/g LUngs CTAB No edema Result Diagrams: 04/07/17 05:11 04/08/17 04:40 Telemetry: SR, SB with rare PACs. No AF ICD10 Worksheet Patient Problems: Problems Problem Status Onset Chest pain Acute Elevated troponin Acute Elevated d-dimer Acute
--- NOTE | 2017-04-08 13:26 | NEUROPROG ---
Assessment: 1. Multiple, bilateral cardioembolic strokes, maximal left cerebellar 2. Mitral valve lesion, etiology unknown 3. Remote history of vasculitis of renal vasculature 40 total minutes floor time; over 50% counseling regarding the patient's cardio embolic strokes, testing and treatment plan. The patient remains stable overnight. No further events. ANAC autoimmune labs are pending. I did discuss her case with the neurovascular subspecialist at [facility] (Dr. Lobato). They also concurred with the plan of holding any full anticoagulation for 14 days due to risk of hemorrhagic conversion in the posterior fossa and associated morbidity and mortality. If the patient has any acute neurologic changes in the interim, the plan will be to call an acute inpatient stroke alert and do CTA of the head and neck. If she has any large vessel occlusion, we will transfer her immediately to [facility] for endovascular treatment. Blood cultures have been negative thus far. Recommendations: 1. Once blood cultures are deemed negative, I think she is okay to discharge home from my standpoint. 2. She will continue aspirin 325 mg daily, coated with meals. She will continue statin therapy. 3. If she has any sudden neurologic symptoms, she or her will call 911 immediately to initiate a stroke evaluation in the emergency department (see above). 4. She can start oral anticoagulation for the mitral valve lesion and subsequent strokes on 04/19/2017 - this is 14 days after her stroke. 5. She will have outpatient Cardiology follow-up for repeat BRITANY and 30 day event monitor to screen for paroxysmal atrial fibrillation. 6. Outpatient physical therapy and other therapies is indicated 7. If there is positivity in any of the remaining autoimmune labs, we will refer her to Rheumatology to evaluate and treat. 8. She will follow-up with me in approximately 8 weeks to review all of the above and further recommendations as indicated. We will sign off and follow up p.r.n..= Please do not hesitate to call if there are any questions or changes in this patient's neurologic status. Subjective: No new symptoms Objective: Vital Signs Temp Pulse Resp BP Pulse Ox 36.8 C 56 L 16 138/75 H 96 04/08/17 12:00 04/08/17 12:00 04/08/17 12:00 04/08/17 12:00 04/08/17 12:00 Laboratory Results 04/07/17 05:11 04/08/17 04:40 04/07/17 04/08/17 04/09/17 05:59 05:59 05:59 Intake Total 200 200 Output Total 554 450 Balance -354 -250 PT 13.4 SEC (12.0-15.0) 04/05/17 15:48 INR 1.03 (0.83-1.16) 04/05/17 15:48 Awake and alert No aphasia or dysarthria Left upper extremity appendicular ataxia has improved Allergies/Adverse Reactions: hydrochlorothiazide Allergy (Severe, Verified 04/05/17 13:19) Rash
[2017-04-08 14:43] LABS: HEPATITIS Bs Ab QUANT <5.0 mIU/mL
[2017-04-08] MEDS: ONDANSETRON DISINTEGRATING 4 MG TAB PO PRN (15:30)
--- NOTE | 2017-04-08 16:04 | PDIAF ---
- Diagnosis Diagnosis: cva Code Status: Full Code - Medication Management Discharge Medications: Medications to Continue on Transfer ALENDRONATE SODIUM [Fosamax 35mg] 35 mg PO WIN 02/01/16 [Last Taken 01/25/16] Acetaminophen [Tylenol 325mg (*)] 325 - 650 mg PO DAILY PRN 02/01/16 [Last Taken 01/31/16] Amlodipine Besylate 10 mg PO DAILY 02/01/16 [Last Taken 04/04/17] Eszopiclone 3 mg PO HS 02/01/16 [Last Taken 04/04/17] Levothyroxine [Synthroid 75 mcg (*)] 75 mcg PO DAILY06 02/01/16 [Last Taken 07/12] Metoprolol Succinate Xr [Toprol Xl 25 mg (*)] 12.5 mg PO DAILY 02/01/16 [Last Taken 02/01/16] Atorvastatin Calcium [Lipitor 10 mg (*)] 10 mg PO DAILY 04/05/17 [Last Taken 07/12] Lisinopril [Zestril 10 mg (*)] 10 mg PO DAILY 04/05/17 [Last Taken 04/04/17] Omeprazole [Prilosec 20 mg] 20 mg PO DAILY 04/05/17 [Last Taken Unknown] Aspirin EC [Aspirin EC 325 mg (*)] 325 mg PO DAILY tab 04/08/17 [Last Taken Unknown] Discharge Medications: Refer to the Discharge Home Medication list for PRN reason. - Orders Services needed: Home Care, Physical Therapy, Occupational Therapy, Speech Language Pathologist Home Care Face to Face: I certify that this patient was under my care and that I had the required [id number]-rh-exuv encounter meeting the encounter requirements on the discharge day. My findings support the fact that the patient is homebound as defined in CMS Chapter 7 Medicare Benefits Manual 30.1.1, The condition of the patient is such that there exists a normal inability to leave home and consequently, leaving home would require a considerable and taxing effort. Diet Recommendation: no restrictions on diet Diet Texture: Regular Texture Diet - Follow Up Care Current Providers and Referrals: Arturo Riley MD [Medical Doctor] - (please call [facility] to schedule 30 day event recorder and follow up after that with either Dr. Riley or Dr. Lipscomb Dx: stroke) Juno Carcamo MD [Primary Care Provider] - As per Instructions
--- NOTE | 2017-04-09 01:36 | GDS ---
[f rep st] DISCHARGE SUMMARY DISCHARGE DIAGNOSES: 1. Multiple bilateral cardioembolic strokes, maximal left cerebellar. 2. 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 3. Remote history of vasculitis. 4. Chronic kidney disease. 5. Hypothyroidism. 6. Hypertension. 7. Gastroesophageal reflux disease. CONSULTANTS: Dr. Angeles Lipscomb, Cardiology. Dr. Uriel Villalta, Neurology. HOSPITAL COURSE BY PROBLEM: Multiple cardioembolic strokes with mitral valve abnormality of unclear etiology: The patient presented to the hospital with vomiting and dizziness. Subsequently, a CTA of the head and neck was done, as well as a brain MRI, that confirmed the diagnosis of multiple bila teral cerebral and left cerebellar embolic acute lacunar infarcts, especially in the left cerebellar hemisphere and vermis. Subsequently, a transesophageal echocardiogram was done on 04/05/2017, whic h showed hyperechoic structure associated with posterior mitral valve annulus measuring 0.4 x 0.8 cm with a differential of vegetation versus fibroelastoma versus, less likely, thrombus. Blood cultur es were drawn on admission which have not grown any organisms. The patient has been nontoxic-appear ing. On day of discharge, the patient states she is feeling well. She denies any new numbness or weaknes s. I did discuss the case with Dr. Villalta from Neurology, who recommended that she be discharged on a full dose aspirin 325 mg daily, as well as a statin. Anticoagulation was not recommended in the set ting of her cardioembolic infarcts and risk for hemorrhagic conversion. Dr. Villalta recommended startin g therapeutic anticoagulation on or after April 19. PHYSICAL EXAMINATION: VITAL SIGNS: On day of discharge, blood pressure 138/75, pulse 56, respirato ry rate 16, O2 saturation 96% on room air. Temperature afebrile. GENERAL: No acute distress. HEA RT: S1, S2. LUNGS: Clear. No wheezes, rales, or rhonchi. NEURO: Cranial nerves 2-12 grossly in tact. There is no pronator drift. Alert and oriented to person, place, and time. PERTINENT LABORATORY DATA AND STUDIES: Brain MRI done 04/05/2017: Refer to report. CTA of the head and neck on admission: Refer to report. Transesophageal echocardiogram done 04/05/2017: Refer to report. DISCHARGE MEDICATIONS: Please refer to discharge medication reconciliation in [facility]. DISCHARGE INSTRUCTIONS: The patient will be discharged from the hospital where, once again, she madyson uld follow up with Dr. Lipscomb as instructed, as well as Dr. Villalta. She should start anticoagulation on April 19. She should have outpatient Holter monitor to evaluate for arrhythmias as the cause of her stroke. /[id number]/MODL
== END 2017-04-08 15:32 | disposition home health service (06) | DRG 65 ==
LOC: OBSVTOIN 19:16 → F3N 21:40
PROVIDERS: ADMIT Internal Medicine; ATTEND Internal Medicine
PROC: B246ZZ4 Ultrasonography of Right and Left Heart, Transesophageal (ICD-10-PCS; principal; 2017-04-06)
DX: I63.442 Cerebral infarction due to embolism of left cerebellar artery (principal); I63.423 Cerebral infarction due to embolism of bilateral anterior cerebral arteries; I63.433 Cerebral infarction due to embolism of bilateral posterior cerebral arteries; I34.8 Other nonrheumatic mitral valve disorders; I77.89 Other specified disorders of arteries and arterioles; N18.4 Chronic kidney disease, stage 4 (severe); I10 Essential (primary) hypertension; E03.9 Hypothyroidism, unspecified; K21.9 Gastro-esophageal reflux disease without esophagitis
CPT/HCPCS: 83516-90; 83520-90; 92507-GN; 92523-GN; 97116-GP; 97161-GP; 97166-GO; 97535-GO; G0472; G8978-GP-CJ; G8979-GP-CI; G8987-GO-CK; G8988-GO-CI; G9168-GO-CI; G9169-GN-CI; G9170-GN-CI; J2250; J2405; J3010; Q9967

== ENCOUNTER → 2017-04-26 | Outpatient (CLI) | payer OTHER, MEDICARE ==
[~2017-04-26] MED LIST: GADOBUTROL 10 ML VIAL IVP ONE
== END ==
LOC: FIMAGING 13:43
PROVIDERS: ATTEND Internal Medicine Cardiovascular Disease
DX: S26.9 Injury of heart, unspecified with or without hemopericardium (principal)
CPT/HCPCS: 75561; A9585

== ENCOUNTER 2017-05-13 12:04 | Day surgery (SDC) | payer OTHER, MEDICARE ==
[2017-05-13] MEDS ORDERED: BENZOCAINE UNIT DOSE SPRAY HURRICAINE MM ONE (12:09)
[2017-05-13] MEDS ORDERED: fentaNYL 100 MCG/2 ML INJ IVP ONE (12:09)
[2017-05-13] MEDS ORDERED: MIDAZOLAM 2 MG/2 ML VIAL IVP ONE (12:09)
[2017-05-13] MEDS ORDERED: NS 1,000 ML IV ONE (12:09)
[2017-05-13] MEDS ORDERED: fentaNYL 100 MCG/2 ML INJ ONE (12:37)
[2017-05-13] MEDS ORDERED: MIDAZOLAM 2 MG/2 ML VIAL ONE (12:37)
--- NOTE | 2017-05-13 15:15 | ECHO ---
[id number] + + [address] : : [place] [address] : : [phone] + Transesophageal Echocardiographic Report + ------+ :Name: Ladan HURTADO Date: 05/13/2017 01:16 PM : : Hospital Admission Number: [id number] Locatio n: CVC: :: 1940 Gender: Female : :Age: 77 yrs Race: WH : :Reason For Study: Eval hyperechoic structure near posterior : :mitral valve annulus : + ------+ Left Ventricle Left ventricular systolic function is normal. Atria No thrombus is detected in the left atrial appendage. Mitral Valve There is an independently mobile, hyperechoic structure adherent via a stalk like structure to the posterior LA wall or interatrial septum. This measures .37 X .85 cm. There is mild mitral regurgitation. Aortic Valve The aortic valve is trileaflet. Trace aortic regurgitation. Procedure NPO status was confirmed, informed consent obtained and timeout performed. Adequate conscious sedation acheived with versed and fentanyl IV. BRITANY probe passed without difficulty. Conclusion A 2D transesophageal echocardiogram with color flow Doppler was performed. Left ventricular systolic function is normal. There is mild mitral regurgitation. There is an independently mobile, hyperechoic structure adherent via a stalk like structure to the posterior LA wall or interatrial septum. This measures .37 X .85 cm. No thrombus is detected in the left atrial appendage. Trace aortic regurgitation. Similar findings compared 04/06/2017 BRITANY, similar findings. Plan for CT surgical consult. Final Reading Physician: Dr Angeles Lipscomb electronically signed on 05/13/2017 03:14 PM Ordering Physician: Angeles Lipscomb Performed By: Dr Angeles Lipscomb
== END 2017-05-13 15:30 | disposition home or self-care (01) ==
LOC: FCATH 12:04
PROVIDERS: ATTEND Internal Medicine Cardiovascular Disease
PROC: B245ZZ4 Ultrasonography of Left Heart, Transesophageal (ICD-10-PCS; principal; 2017-05-13)
DX: I05.9 Rheumatic mitral valve disease, unspecified (principal); I77.9 Disorder of arteries and arterioles, unspecified; N18.9 Chronic kidney disease, unspecified; I12.9 Hypertensive chronic kidney disease with stage 1 through stage 4 chronic kidney disease, or unspecified chronic kidney disease; E03.9 Hypothyroidism, unspecified; K21.9 Gastro-esophageal reflux disease without esophagitis; I50.9 Heart failure, unspecified; M10.9 Gout, unspecified; Z86.73 Personal history of transient ischemic attack (TIA), and cerebral infarction without residual deficits; Z79.01 Long term (current) use of anticoagulants
CPT/HCPCS: J2250; J3010

== ENCOUNTER → 2017-05-26 | Outpatient (CLI) | payer OTHER, MEDICARE | LOC: FIMAGING 12:17 | PROVIDERS: ATTEND Thoracic Surgery (Cardiothoracic Vascular Surgery) | DX: Z01.811 Encounter for preprocedural respiratory examination (principal) ==

== ENCOUNTER → 2017-05-26 | Outpatient (CLI) | payer OTHER, MEDICARE | LOC: FIMAGING 13:20 | PROVIDERS: ATTEND Internal Medicine | DX: Z12.31 Encounter for screening mammogram for malignant neoplasm of breast (principal) | CPT/HCPCS: G0202 ==

== ENCOUNTER 2017-06-02 05:52 | Inpatient (IN) | payer OTHER, MEDICARE ==
[2017-06-02] MEDS ORDERED: INSULIN REGULAR HUMAN 100 UNIT in NS 100 ML IV ONE (06:00)
[2017-06-02] MEDS ORDERED: SODIUM BICARBONATE 20 MEQ, LIDOCAINE 1% 10 ML in NORMOSOL-R 1,000 ML MISC ONE (06:00)
[2017-06-02] MEDS ORDERED: PHENYLEPHRINE HCL 50 MG in NS 250 ML IV ONE (06:00)
[2017-06-02] MEDS ORDERED: niCARdipine/NACL 200 ML IV ONE (06:00)
[2017-06-02] MEDS ORDERED: AMINOCAPROIC ACID 5 GM/20 ML VIAL IV ONE (06:00)
[2017-06-02] MEDS ORDERED: CITRATE DEXTROSE SOLN 500 ML BAG MISC ONE (06:00)
[2017-06-02] MEDS ORDERED: ceFAZolin 2 GM/DEXTROSE 100 ML IV ONE (06:00)
[2017-06-02] MEDS ORDERED: NS 1,000 ML IV ONE (06:00)
[2017-06-02] MEDS ORDERED: NOREPINEPHRINE BITARTRATE 16 MG in NS 250 ML IV ONE (06:00)
[2017-06-02] MEDS ORDERED: MANNITOL 20% 50 GM/250 ML BAG IV ONE (06:00)
[2017-06-02] MEDS ORDERED: MANNITOL 25% 12.5 GM/50 ML VIAL IV ONE (06:00)
[2017-06-02] MEDS ORDERED: LIDOCAINE 1% 2 ML INJ ID PRN (06:07)
[2017-06-02] MEDS ORDERED: LR 1,000 ML IV ONE (06:07)
[2017-06-02] MEDS: MUPIROCIN 2% 22 GM OINT NS SCH ×3 (06:35→21:12)
[2017-06-02] MEDS ORDERED: ALBUMIN 5% 250 ML BOTTLE IV ONE ×2 (06:37→11:29)
[2017-06-02] MEDS ORDERED: PROTAMINE SULFATE 50 MG/5 ML VIAL IVP ONE (06:37)
[2017-06-02] MEDS ORDERED: CITRATE DEXTROSE SOLN 500 ML BAG ONE (06:38)
[2017-06-02] MEDS ORDERED: DOPamine/DEXTROSE/250 ML BAG IV ONE (06:38)
[2017-06-02] MEDS ORDERED: NA BICARBONATE 50 MEQ/50 ML VIAL ONE (06:38)
[2017-06-02] MEDS ORDERED: LIDOCAINE 2% 100 MG/5 ML SYR ONE (06:38)
[2017-06-02] MEDS ORDERED: POTASSIUM Cl (KCl) 20 MEQ/50 ML BAG IV ONE (06:38)
[2017-06-02] MEDS ORDERED: MILRINONE/DEXTROSE/100 ML BAG IV ONE (06:38)
[2017-06-02] MEDS ORDERED: CALCIUM CHLORIDE 1 GM/10 ML INJ ONE (06:38)
[2017-06-02] MEDS ORDERED: AMINOCAPROIC ACID 5 GM/20 ML VIAL ONE (06:38)
[2017-06-02] MEDS ORDERED: niCARdipine/NACL/200 ML BAG IV ONE (06:38)
[2017-06-02] MEDS ORDERED: ADENOSINE 6 MG/2 ML VIAL ONE (06:39)
[2017-06-02] MEDS ORDERED: AMIODARONE HCL 150 MG/3 ML VIAL ONE (06:39)
[2017-06-02] MEDS ORDERED: methylPREDNISolone SOD SUCC 1 GM/8 ML VIAL ONE (06:39)
[2017-06-02] MEDS ORDERED: HEPARIN 10,000 UNIT/10 ML MDV ONE (06:39)
[2017-06-02] MEDS ORDERED: MAGNESIUM SULFATE 1 GM/2 ML VIAL ONE (06:39)
[2017-06-02] MEDS ORDERED: ceFAZolin 1 GM VIAL ONE (06:39)
[2017-06-02] MEDS ORDERED: MINERAL OIL 10 ML VIAL ONE (07:02)
--- NOTE | 2017-06-02 07:03 | PDANEPAE ---
ANE History of Present Illness here for atrial mass resection ANE Past Medical History - Cardiovascular History Hx Hypertension: Yes Hx Arrhythmias: No Hx Chest Pain: No Hx Coronary Artery / Peripheral Vascular Disease: No Hx CHF / Valvular Disease: No Hx Palpitations: No Cardiovascular History Comment: HTN well controlled. L atrial mass "attached to tissue near mitral valve" - Pulmonary History Hx COPD: No Hx Asthma/Reactive Airway Disease: No Hx Recent Upper Respiratory Infection: No Hx Oxygen in Use at Home: No Hx Sleep Apnea: No Sleep Apnea Screening Result - Last Documented: Negative - Neurologic History Hx Cerebrovascular Accident: Yes Hx Seizures: No Hx Dementia: No Neurologic History Comment: embolic cerebellar stroke 04-05-17. "lost a little due to stroke" L side sl weaker. 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 insomnia-uses Lunesta - Chronic Pain History Chronic Pain: No - Surgical History Prior Surgeries: L shoulder sx-impingement 01-10;. bilat cataract extractions w/ IOL. lap ari. L lower lobe lobectomy. L shoulder sx 1996. eye sx age 21. T and A ~age 8 ANE Review of Systems Review of systems is: negative Review of Systems: - Exercise capacity Exercise capacity: >=4 METS METS (RN): 4 METS ANE Patient History - Allergies Allergies/Adverse Reactions: hydrochlorothiazide Allergy (Severe, Verified 05/31/17 10:12) Rash - Home Medications Home Medications: Acetaminophen [Tylenol 325mg (*)] 325 - 650 mg PO DAILY PRN 02/01/16 [Last Taken 06/01/17] Eszopiclone 3 mg PO HS 02/01/16 [Last Taken 06/01/17] Levothyroxine [Synthroid 75 mcg (*)] 75 mcg PO DAILY06 02/01/16 [Last Taken 03/12] Metoprolol Succinate Xr [Toprol Xl 25 mg (*)] 12.5 mg PO DAILY 02/01/16 [Last Taken 06/01/17] Atorvastatin Calcium [Lipitor 10 mg (*)] 10 mg PO DAILY 04/05/17 [Last Taken 03/12] Lisinopril [Zestril 10 mg (*)] 10 mg PO HS 04/05/17 [Last Taken 06/01/17] amLODIPine BESYLATE [Norvasc 10 mg (*)] 10 mg PO DAILY 05/31/17 [Last Taken 03/12] Herbals/Supplements -Info Only 1 ea PO DAILY 06/01/17 [Last Taken Unknown] - NPO status NPO Since - Liquids (Date): 06/01/17 NPO Since - Liquids (Time): 21:30 NPO Since - Solids (Date): 06/01/17 NPO Since - Solids (Time): 18:30 - Smoking Hx Smoking Status: Never smoked ANE Labs/Vital Signs - Vital Signs Blood Pressure: 112/71 Heart Rate: 65 Respiratory Rate: 20 O2 Sat (%): 96 Height: 157.48 cm Weight: 57.606 kg ANE Physical Exam - Airway Neck exam: FROM Mallampati Score: Class 1 - Pulmonary Pulmonary: no respiratory distress - Cardiovascular Cardiovascular: regular rate and rhythym - ASA Status ASA Status: IV ANE Anesthesia Plan Anesthesia Plan: general endotracheal anesthesia Lines/Monitors: central line, BRITANY
[2017-06-02] MEDS ORDERED: MIDAZOLAM 2 MG/2 ML VIAL ONE (07:06)
[2017-06-02] MEDS ORDERED: fentaNYL 100 MCG/2 ML INJ ONE ×4 (07:07→10:38)
[2017-06-02] MEDS ORDERED: PROPOFOL/EMULSION 500 MG/50 ML BOTTLE IV ONE (07:08)
--- NOTE | 2017-06-02 07:14 | PDHPUP ---
History & Physical Update H&P update statement: This history and physical update is based on an assessment of the patient which was completed after admission or registration (within 24 hours), but prior to the surgery/procedure. H&P changes: mild residual left hemiparesis, no ambulatory limitations
[2017-06-02] MEDS ORDERED: MAGNESIUM SULF 1 GM/DEXTROSE 100 ML BAG IV ONE (07:38)
[2017-06-02] MEDS ORDERED: MIDAZOLAM 2 MG/2 ML VIAL IVP ONE (08:25)
[2017-06-02] MEDS ORDERED: BUPIVACAINE 0.25% 30 ML SDV ONE ×2 (09:08→09:11)
[2017-06-02] MEDS ORDERED: SUGAMMADEX SODIUM 200 MG/2 ML VIAL IVP ONE (10:34)
[2017-06-02] MEDS ORDERED: ONDANSETRON 4 MG/2 ML VIAL ONE (10:34)
[2017-06-02] MEDS ORDERED: PHENYLEPHRINE HCL 100 MCG/ML SYR ONE (10:43)
[2017-06-02] MEDS ORDERED: METOCLOPRAMIDE 10 MG/2 ML VIAL IVP PRN (11:06)
[2017-06-02] MEDS ORDERED: CEPACOL LOZENGE PO PRN (11:06)
[2017-06-02] MEDS ORDERED: BISACODYL 10 MG SUPP PR PRN (11:06)
[2017-06-02] MEDS ORDERED: POTASSIUM Cl (KCl) 50 ML IV PRN (11:06)
[2017-06-02] MEDS ORDERED: MAGNESIUM HYDROXIDE 30 ML UDCUP PO PRN (11:06)
[2017-06-02] MEDS ORDERED: fentaNYL 100 MCG/2 ML INJ IVP PRN (11:06)
[2017-06-02] MEDS ORDERED: LACTULOSE 20 GM/30 ML UDCUP PO PRN (11:06)
[2017-06-02] MEDS ORDERED: ONDANSETRON 4 MG/2 ML VIAL IVP PRN (11:06)
[2017-06-02] MEDS ORDERED: PANTOPRAZOLE SODIUM 40 MG in NS 100 ML IV ONE (11:06)
[2017-06-02] MEDS ORDERED: SODIUM CL NASAL 45 ML BTL EACHNARE PRN (11:06)
[2017-06-02] MEDS ORDERED: POLYETHYLENE GLYCOL 3350 17 GM PKT PO PRN (11:06)
[2017-06-02] MEDS ORDERED: ONDANSETRON DISINTEGRATING 4 MG TAB PO PRN (11:06)
[2017-06-02] MEDS ORDERED: MEPERIDINE 25 MG/ML SYR IVP PRN (11:06)
[2017-06-02] MEDS ORDERED: D50W 25 GM/50 ML SYR IVP PRN (11:06)
[2017-06-02] MEDS ORDERED: NS 1,000 ML IV SCH (11:15)
--- NOTE | 2017-06-02 11:20 | POSTOPPROG ---
Post Op Note Date of Operation: 06/02/17 Surgeon: Sterling Holden Power Press Tender: Brice Anesthesiologist: Christos Anesthesia: GET(General Endotracheal) Pre-op Diagnosis: L atrial mass Procedure: MICS R thoracotomy w excision of mass from posterior leaflet, cryo intercos Inf/Abcess present in the surg proc area at time of surgery?: No EBL: Minimal
[2017-06-02] MEDS ORDERED: INSULIN REGULAR HUMAN 100 UNIT in NS 100 ML IV SCH (11:30)
--- NOTE | 2017-06-02 11:51 | CPEKG ---
Heart Rate: 81 RR Interval: 741 P-R Interval: 240 QRSD Interval: 86 QT Interval: 452 QTC Interval: 525 P [place]: 72 QRS [place]: 13 T Wave [place]: 130 EKG Severity - ABNORMAL ECG - EKG Impression: SINUS RHYTHM EKG Impression: FIRST DEGREE AV BLOCK EKG Impression: PROLONGED QT INTERVAL EKG Impression: COMPARED WITH 05 APR 2017, MI LONGER, QT LONGER Electronically Signed By: Angeles Lipscomb 02-Jun-2017 14:09:19
[2017-06-02] MEDS: ALBUMIN 5% 250 ML IV PRN ×2 (11:54→13:05)
[2017-06-02 12:28] LABS: ANION GAP 10 mEq/L (8-16); CARBON DIOXIDE 22 mEq/l (22-31); CHLORIDE 104 mEq/L (97-110); GLOMERULAR FILTRATION RATE 54; GLUCOSE 142 mg/dL (70-100); SODIUM 136 mEq/L (134-144)
--- NOTE | 2017-06-02 13:34 | GOP ---
[f rep st] OPERATIVE REPORT DATE OF OPERATION: 06/02/2017 SURGEON: Sterling Holden DO SUCTION PLATE ROLLER HAND: Clarissa aNrvaez, PAC ANESTHESIOLOGIST: Anshul Sher MD PREOPERATIVE DIAGNOSIS: Recent embolic stroke, likely due to cardiac source, with mobile mass in the left atrium. POSTOPERATIVE DIAGNOSIS: Await pathology report. PROCEDURE PERFORMED: Minimally invasive cardiac surgery, right 4th intercostal space lateral thoraco pete with femoral artery cannulation, with removal of left atrial mass. FINDINGS: The patient presented with an embolic stroke. After diagnostic evaluation, she was found to have a 5 mm mass on a very long stalk, quite mobile, in the left atrium that was felt to be the ca rdiac source. No other obvious site was identified. It was considered either a small myxoma or fibr oelastoma. She was referred for surgical intervention. She and her agreed to proceed. DESCRIPTION OF PROCEDURE: She was taken to the operating room, intubated with single-lumen endotrach eal tube, placed with the right side up. She was prepped and draped for a minimally invasive mitral valve exposure. The right common femoral artery was exposed through a limited incision on the anteri or surface only. The artery had some mild posterior plaquing but was actually quite a large artery f or this small lady. Pursestring sutures were placed around it. We then exposed the pericardium thro ugh the 4th intercostal space, staying above the bra line on the edge of the breast, placing a 4 cm i ncision down through approximately the 4th intercostal space in the anterior axillary line. Soft tis tomi retractor was placed. A separate port was placed several interspaces below that in the anterior axillary line. We then gently depressed the lung out of the way, not having utilized double-lumen en dotracheal intubation to avoid re-expansion pulmonary edema. The pericardium was densely adherent to the heart due to previous pericarditis and adhesions. Some time was taken to gently dissect the rig ht atrium and aorta away from it in order to proceed with surgery. The patient was heparinized. We then cannulated the left common femoral vein with a long venous cannula, size 25-Hungarian, over a guide wire with echo guidance into the superior vena cava. We then placed a pursestring suture on the femo ral artery and directed a wire into the descending aorta without difficulty, over which a 17-Hungarian a rterial cannula was placed without difficulty. It was tested, and there was no resistance. Because of her age, we tested it at a slower rate to avoid stroke. Retraction sutures were placed on the per icardium. A cardioplegia stitch was placed in the ascending aorta, felt-reinforced, without difficul ty. Cardiopulmonary bypass was begun quite slowly allowing the patient to eject for some time until full flow was established to avoid any retrograde embolism. Cross-clamp was applied to the ascending aorta, which was soft and pliable, through the thoracotomy incision, with cardiac arrest attained. We then opened the left atrium through the interatrial groove, and with a Esmond retractor brought thr ough the anterior chest wall, a retractor was put in place exposing the mitral valve. There was a sm all mobile mass adherent to the posterior leaflet with a 1 cm stalk, and unfortunately, part of it wa s sucked up with the sucker during attempts to expose it. The remainder of the stalk was grasped and debrided from the posterior leaflet of the mitral valve at the junction of the atrium. It did not a ppear to be a myxoma and likely either a fibroelastoma or some sort of secondary phenomenon. That st alk was sent for permanent pathology. LV chamber was copiously irrigated for any potential debris. We then closed the left atrium with felt-reinforced 4-0 Prolene without difficulty. CO2 had been inf used throughout the procedure. The patient was placed in deep Trendelenburg. Two ventricular pacing wires were placed. The cross-clamp was removed with suction on the ascending aortic vent. The jen ent developed spontaneous sinus rhythm and was allowed to beat for sometime with the heart empty unti l no air was identified. She was then, with ventilation and intermittent filling of the heart, kept in Trendelenburg until we were certain there was no air. She was then easily weaned from bypass. Pa cing wire sensitivity was checked at around 5. The heparin was reversed with protamine, the cannulas in the groin were removed and oversewn with 5-0 Prolene without difficulty, and good pedal pulses no shweta. A single Dionte drain was placed in the right chest, as were atrial and ventricular pacing wires , brought out through separate stab wound incisions. Cryo was used to block the intercostal space ab ove, at, and below the incision staying lateral to the spine with 2 minutes of ablation performed on each site. We also injected 0.25% Marcaine with epinephrine. 0 Vicryl was used to approximate the r ibs, although they had never truly been . The remainder of the incisions and soft tissues w ere closed in a standard fashion. The patient was extubated in the operating room and returned to [facility] in stable condition. /[id number]/MODL
[2017-06-02] MEDS ORDERED: KETOROLAC 15 MG/1 ML SDV IVP ONE (13:45)
[2017-06-02 15:32] LABS: CALCULATED OXYGEN SATURATION 95 % (92-95); O2 CONCENTRATIION 10 % (0-100)
[2017-06-02] MEDS ORDERED: ALBUMIN 5% 250 ML IV ONE (17:30)
[2017-06-02] MEDS: HYDROCODONE/APAP 5/325 TAB PO PRN (17:37)
[2017-06-02 18:30] LABS: HEMATOCRIT 28.5 % (38.0-47.0); HEMOGLOBIN 9.4 g/dL (12.6-16.3); MEAN CELL HEMOGLOBIN 29.4 pg (27.9-34.1); MEAN CELL VOLUME 89.1 fL (81.5-99.8); RED BLOOD CELL COUNT 3.2 10^6/uL (4.18-5.33); RED CELL DISTRIBUTION WIDTH 13.7 % (11.5-15.2)
--- NOTE | 2017-06-02 19:32 | POSTANESTH ---
Post Anesthetic Evaluation Cardiovascular Status: Normal, Stable Respiratory Status: Normal, Stable Level of Consciousness/Mental Status: Can Participate in Eval Pain Control: Adequate, Prn Tx Ordered Nausea/Vomiting Control: Adequate, Prn Tx Ordered Complications Possibly Related to Anesthesia: None Noted
[2017-06-02] MEDS: ceFAZolin 2 GM/DEXTROSE 100 ML IV SCH (21:10)
[2017-06-03] MEDS: HYDROCODONE/APAP 5/325 TAB PO PRN ×3 (01:39→20:05)
[2017-06-03 04:34] LABS: % IMMATURE GRANULYOCYTES 0.5 % (0.0-1.1); ABSOLUTE IMMATURE GRANULOCYTES 0.06 10^3/uL (0.00-0.10); ADD DIFF? NO; ADD MORPH? NO; ADD SCAN? NO; ATYPICAL LYMPHOCYTE FLAG 0 (0-99); FRAGMENT RBC FLAG 10 (0-99); HEMATOCRIT 25.5 % (38.0-47.0); HEMOGLOBIN 8.3 g/dL (12.6-16.3); LEFT SHIFT FLG 10 (0-99); LIPEMIA HEMOLYSIS FLAG 80 (0-99); MEAN CELL HEMOGLOBIN 29.5 pg (27.9-34.1); MEAN CELL HEMOGLOBIN CONCENTR. 32.5 g/dL (32.4-36.7); MEAN CELL VOLUME 90.7 fL (81.5-99.8); MEAN PLATELET VOLUME 10.4 fL (8.7-11.7); PLATELET CLUMPS FLAG 0 (0-99); PLATELET COUNT 95 10^3/uL (150-400); RED BLOOD CELL COUNT 2.81 10^6/uL (4.18-5.33); RED CELL DISTRIBUTION WIDTH 14.2 % (11.5-15.2)
[2017-06-03 04:36] LABS: ANION GAP 10 mEq/L (8-16); CALCIUM 8.7 mg/dL (8.5-10.4); CARBON DIOXIDE 22 mEq/l (22-31); CHLORIDE 104 mEq/L (97-110); CREATININE 1.4 mg/dL (0.6-1.0); GLOMERULAR FILTRATION RATE 37; GLUCOSE 105 mg/dL (70-100); POTASSIUM 4.8 mEq/L (3.5-5.2); SODIUM 136 mEq/L (134-144)
[2017-06-03] MEDS: LEVOTHYROXINE 75 MCG TAB PO SCH (05:36)
--- NOTE | 2017-06-03 06:09 | SOAPPROG ---
SOAP Progress Note Assessment/Plan: POD #1: MICS right thoracotomy removal of left atrial mass, LCFA/V cannulation Left atrial mass s/p removal - Await pathology for definitive dx - Continue CT to wall suction secondary to air leak - FC and AL out - Transfer to PCU Acute blood loss anemia with thrombocytopenia - Stable without the need for blood product transfusions - Monitor platelets and hold thromboprophylaxis until platelets > 100 h/o cariogenic embolic CVA with minor residual left-sided weakness - No apparent new neurologic deficits - Agressive PT/OT CKD, stage 3 - Current Cr at baseline, monitor HTN - Staggered introduction of home meds as allowed by HR and BP Subjective: Some right sided chest pain. Denies SOB. Objective: Vital Signs Temp Pulse Resp BP Pulse Ox 37.3 C 60 17 99/42 L 95 06/03/17 00:00 06/03/17 04:00 06/03/17 04:00 06/03/17 04:00 06/03/17 04:00 Laboratory Results 06/03/17 04:00 06/03/17 04:00 06/02/17 06/03/17 06/04/17 05:59 05:59 05:59 Intake Total 1935.1 Output Total 2825 Balance -889.9 Physical Exam - Physical Exam General Appearance: WD/WN, alert, no apparent distress EENT: No scleral icterus (R), No scleral icterus (L) Neck: normal inspection Respiratory: other (CT with air leak), No respiratory distress Cardiac/Chest: bradycardia Abdomen: non-tender, soft, No distended Skin: normal color, warm/dry Extremities: No pedal edema Neuro/Psych: no motor/sensory deficits, alert, normal mood/affect, oriented x 3 ICD10 Worksheet Patient Problems: Problems Problem Status Onset Acute blood loss anemia Acute s/p excision of left atrial mass Acute ~06/02/17 CKD (chronic kidney disease) stage 3, GFR 30-59 ml/min Chronic Hemiparesis affecting left side as late effect of stroke Chronic Left atrial mass Chronic
[2017-06-03] MEDS: HEPARIN 5,000 UNIT/0.5 ML SYR SC SCH ×3 (07:16→20:05)
[2017-06-03 08:27] LABS: POTASSIUM 4.8 mEq/L (3.5-5.2)
[2017-06-03] MEDS: PANTOPRAZOLE SODIUM 40 MG TAB PO SCH (09:04)
[2017-06-03] MEDS: MUPIROCIN 2% 22 GM OINT NS SCH (09:04)
[2017-06-03] MEDS: ceFAZolin 2 GM/DEXTROSE 100 ML IV SCH ×2 (09:04→20:04)
[2017-06-03] MEDS: ASPIRIN 81 MG CHEWABLE TAB PO SCH (09:12)
[2017-06-03 12:27] LABS: POTASSIUM 4.4 mEq/L (3.5-5.2)
[2017-06-04] MEDS: MUPIROCIN 2% 22 GM OINT NS SCH (01:26)
[2017-06-04] MEDS: HYDROCODONE/APAP 5/325 TAB PO PRN ×3 (01:47→22:30)
[2017-06-04] MEDS: HEPARIN 5,000 UNIT/0.5 ML SYR SC SCH ×3 (04:44→20:53)
[2017-06-04] MEDS: LEVOTHYROXINE 75 MCG TAB PO SCH (04:44)
[2017-06-04 05:00] LABS: % IMMATURE GRANULYOCYTES 0.7 % (0.0-1.1); ABSOLUTE IMMATURE GRANULOCYTES 0.09 10^3/uL (0.00-0.10); ADD DIFF? NO; ADD MORPH? NO; ADD SCAN? NO; ATYPICAL LYMPHOCYTE FLAG 0 (0-99); FRAGMENT RBC FLAG 0 (0-99); HEMATOCRIT 26.6 % (38.0-47.0); HEMOGLOBIN 8.7 g/dL (12.6-16.3); LEFT SHIFT FLG 0 (0-99); LIPEMIA HEMOLYSIS FLAG 80 (0-99); MEAN CELL HEMOGLOBIN 29.9 pg (27.9-34.1); MEAN CELL HEMOGLOBIN CONCENTR. 32.7 g/dL (32.4-36.7); MEAN CELL VOLUME 91.4 fL (81.5-99.8); MEAN PLATELET VOLUME 10.3 fL (8.7-11.7); PLATELET CLUMPS FLAG 10 (0-99); PLATELET COUNT 95 10^3/uL (150-400); RED BLOOD CELL COUNT 2.91 10^6/uL (4.18-5.33); RED CELL DISTRIBUTION WIDTH 14.4 % (11.5-15.2)
[2017-06-04 05:22] LABS: ANION GAP 5 mEq/L (8-16); CALCIUM 8.5 mg/dL (8.5-10.4); CARBON DIOXIDE 25 mEq/l (22-31); CHLORIDE 102 mEq/L (97-110); CREATININE 1.4 mg/dL (0.6-1.0); GLOMERULAR FILTRATION RATE 37; GLUCOSE 116 mg/dL (70-100); POTASSIUM 4.6 mEq/L (3.5-5.2); SODIUM 132 mEq/L (134-144)
[2017-06-04] MEDS ORDERED: FUROSEMIDE 20 MG/2 ML VIAL IVP ONE (08:14)
--- NOTE | 2017-06-04 08:24 | SOAPPROG ---
SOAP Progress Note Assessment/Plan: POD #2: MICS right thoracotomy removal of left atrial mass, LCFA/V cannulation Left atrial mass s/p removal - Await pathology for definitive dx - Continue CT to wall suction secondary to air leak Acute blood loss anemia with thrombocytopenia - Stable without the need for blood product transfusions - Monitor platelets and hold DVT thromboprophylaxis until platelets > 100 h/o cariogenic embolic CVA with minor residual left-sided weakness - No new neurologic deficits - Aggressive PT/OT CKD, stage 3 - Current Cr at baseline, monitor HTN - Staggered introduction of home meds as allowed by HR and BP Subjective: Denies pain. Some SOB. No weakness. Ambulating well. Objective: Vital Signs Temp Pulse Resp BP Pulse Ox 37.1 C 73 22 H 133/59 H 90 L 06/04/17 08:00 06/04/17 08:00 06/04/17 08:00 06/04/17 08:00 06/04/17 08:00 Laboratory Results 06/04/17 04:45 06/04/17 04:45 06/03/17 06/04/17 06/05/17 05:59 05:59 05:59 Intake Total 1935.1 1090 Output Total 2825 400 Balance -889.9 690 Physical Exam - Physical Exam General Appearance: WD/WN, alert, no apparent distress EENT: No scleral icterus (R), No scleral icterus (L) Neck: normal inspection Respiratory: crackles (b/l bases), No respiratory distress, No wheezing Cardiac/Chest: regular rate, rhythm Abdomen: non-tender, soft, No distended Skin: normal color, warm/dry Extremities: No pedal edema Neuro/Psych: no motor/sensory deficits, alert, normal mood/affect, oriented x 3 ICD10 Worksheet Patient Problems: Problems Problem Status Onset Acute blood loss anemia Acute s/p excision of left atrial mass Acute ~06/02/17 CKD (chronic kidney disease) stage 3, GFR 30-59 ml/min Chronic Hemiparesis affecting left side as late effect of stroke Chronic Left atrial mass Chronic
[2017-06-04] MEDS: ATORVASTATIN CALCIUM 10 MG TAB PO SCH (08:49)
[2017-06-04] MEDS: SENNOSIDES/DOCUSATE SODIUM TAB PO SCH ×2 (08:49→20:57)
[2017-06-04] MEDS: PANTOPRAZOLE SODIUM 40 MG TAB PO SCH (08:50)
[2017-06-04] MEDS: ASPIRIN 81 MG CHEWABLE TAB PO SCH (08:50)
[2017-06-04] MEDS: ESZOPICLONE 3 MG PO SCH (22:31)
[2017-06-05] MEDS: LEVOTHYROXINE 75 MCG TAB PO SCH (05:52)
[2017-06-05 06:01] LABS: HEMATOCRIT 27.4 % (38.0-47.0); HEMOGLOBIN 9.1 g/dL (12.6-16.3); MEAN CELL HEMOGLOBIN CONCENTR. 33.2 g/dL (32.4-36.7); MEAN CELL VOLUME 90.4 fL (81.5-99.8); RED BLOOD CELL COUNT 3.03 10^6/uL (4.18-5.33); RED CELL DISTRIBUTION WIDTH 13.9 % (11.5-15.2)
[2017-06-05 06:10] LABS: ANION GAP 7 mEq/L (8-16); CALCIUM 8.3 mg/dL (8.5-10.4); CARBON DIOXIDE 27 mEq/l (22-31); CHLORIDE 102 mEq/L (97-110); CREATININE 1.1 mg/dL (0.6-1.0); GLOMERULAR FILTRATION RATE 48; GLUCOSE 85 mg/dL (70-100); POTASSIUM 4.2 mEq/L (3.5-5.2); SODIUM 136 mEq/L (134-144)
[2017-06-05] MEDS: ATORVASTATIN CALCIUM 10 MG TAB PO SCH (08:33)
[2017-06-05] MEDS: SENNOSIDES/DOCUSATE SODIUM TAB PO SCH ×2 (08:33→21:53)
[2017-06-05] MEDS: ASPIRIN 81 MG CHEWABLE TAB PO SCH (08:33)
[2017-06-05] MEDS: PANTOPRAZOLE SODIUM 40 MG TAB PO SCH (08:33)
[2017-06-05] MEDS: HEPARIN 5,000 UNIT/0.5 ML SYR SC SCH ×3 (08:39→21:54)
--- NOTE | 2017-06-05 10:09 | SOAPPROG ---
SOAP Progress Note Assessment/Plan: POD #3: MICS right thoracotomy removal of left atrial mass, LCFA/V cannulation Left atrial mass s/p removal - Await pathology for definitive dx - CT to water seal - PW to be cut this AM Acute blood loss anemia with thrombocytopenia - Stable without the need for blood product transfusions - Platelets rebounding h/o cariogenic embolic CVA with minor residual left-sided weakness - No new neurologic deficits - Aggressive PT/OT CKD, stage 3 - Current Cr at baseline, monitor HTN - Staggered introduction of home meds as allowed by HR and BP Subjective: Denies SOB/CP. Objective: Vital Signs Temp Pulse Resp BP Pulse Ox 36.6 C 78 17 149/74 H 96 06/05/17 08:20 06/05/17 08:20 06/05/17 08:20 06/05/17 08:20 06/05/17 08:20 Laboratory Results 06/05/17 05:55 06/05/17 05:55 06/04/17 06/05/17 06/06/17 05:59 05:59 05:59 Intake Total 1090 620 Output Total 400 3800 900 Balance 690 -3180 -900 Physical Exam - Physical Exam General Appearance: WD/WN, alert, no apparent distress EENT: No scleral icterus (R), No scleral icterus (L) Neck: normal inspection Respiratory: No respiratory distress Cardiac/Chest: regular rate, rhythm Abdomen: non-tender, soft, No distended Skin: normal color, warm/dry Extremities: No pedal edema Neuro/Psych: no motor/sensory deficits, alert, normal mood/affect, oriented x 3 ICD10 Worksheet Patient Problems: Problems Problem Status Onset Acute blood loss anemia Acute s/p excision of left atrial mass Acute ~06/02/17 CKD (chronic kidney disease) stage 3, GFR 30-59 ml/min Chronic Hemiparesis affecting left side as late effect of stroke Chronic Left atrial mass Chronic
[2017-06-05] MEDS: METOPROLOL TARTRATE 25 MG TAB PO SCH ×2 (12:18→21:51)
[2017-06-05] MEDS: ACETAMINOPHEN 325 MG TAB PO PRN (15:39)
--- NOTE | 2017-06-05 16:17 | CPEKG ---
Heart Rate: 80 RR Interval: 750 P-R Interval: 184 QRSD Interval: 78 QT Interval: 392 QTC Interval: 453 P [place]: 55 QRS [place]: 18 T Wave [place]: -3 EKG Severity - BORDERLINE ECG - EKG Impression: SINUS RHYTHM EKG Impression: BORDERLINE T ABNORMALITIES, INFERIOR LEADS Electronically Signed By: Chun Randle 06-Jun-2017 07:07:54
--- NOTE | 2017-06-05 17:07 | ASMTCMCOM ---
CM Note CM Note Notes: Patient is POD #1 MICS right thoracotomy removal of left atrial mass, pathology pending. She is feeling well with some right-sided chest pain. Patient lives at home with and is normally independent in ADL's. Initial PT eval recommends home with potential home care, OT recommends home with family. CM will follow for discharge planning. Date Signed: 06/03/2017 03:55 PM Electronically Signed By:Keyla Rich
[2017-06-05] MEDS: HYDROCODONE/APAP 5/325 TAB PO PRN (21:49)
[2017-06-05] MEDS: ESZOPICLONE 3 MG PO SCH (21:51)
[2017-06-06] MEDS: ACETAMINOPHEN 325 MG TAB PO PRN ×2 (02:50→15:45)
[2017-06-06] MEDS: LEVOTHYROXINE 75 MCG TAB PO SCH (06:16)
[2017-06-06] MEDS: HEPARIN 5,000 UNIT/0.5 ML SYR SC SCH ×3 (06:16→22:08)
--- NOTE | 2017-06-06 08:15 | SOAPPROG ---
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 No antithrombotic prophylaxis necessary. Postoperative right PTX - Assoc with diffuse SQ emphysema - Small air leak controlled with suction. Appears to be resolving Acute blood loss anemia with thrombocytopenia - Stable without the need for blood product transfusions - Platelet count rebound noted h/o cariogenic embolic CVA with minor residual left-sided weakness - No new neurologic deficits - Aggressive PT/OT CKD, stage 3 - Stable. HTN - Controlled on combination therapy. AF prophylaxis preferentially with BB. Addition of CCB and ACEI as allowed by BP. Plan: Cont CT to WS. Ck CXR in am. Consider switch from metoprolol tartrate back to Toprol XL in am. Dispo - Home once chest tube out. 06/06/17 08:13 Subjective: Feels well. Recovering some pep. Ambulating and transferring independently. Hopeful for home soon. Objective: Vital Signs Temp Pulse Resp BP Pulse Ox 36.9 C 68 16 119/62 95 06/06/17 04:00 06/06/17 04:00 06/06/17 04:00 06/06/17 04:00 06/06/17 04:00 Laboratory Results 06/05/17 05:55 06/05/17 05:55 06/05/17 06/06/17 06/07/17 05:59 05:59 05:59 Intake Total 620 510 300 Output Total 3800 2900 Balance -3180 -2390 300 HR and rhythm stable. BP controlled on low dose BB. Almost off O2. Excellent diuresis. Back to baseline wt. CXR-> no PTX, unchanged subq air, improved aeration of RLL Small volume air leak with cough. Cr down slightly, Plt up slightly. Physical Exam - Physical Exam General Appearance: alert, no apparent distress Respiratory: crackles (rt sided, partly crepitus), other (rt thoracot CDI, CT to pleurovac, thin mostly serous drainage, +tidal, 1-2 chamber air leak inducible with cough) Cardiac/Chest: regular rate, rhythm Peripheral Pulses: 2+: dorsalis-pedis (R), dorsalis-pedis (L) Abdomen: non-tender, soft Skin: normal color Extremities: other (no visible edema) ICD10 Worksheet Patient Problems: Problems Problem Status Onset Acute blood loss anemia Acute s/p excision of left atrial mass Acute ~06/02/17 CKD (chronic kidney disease) stage 3, GFR 30-59 ml/min Chronic Hemiparesis affecting left side as late effect of stroke Chronic Left atrial mass Chronic
[2017-06-06] MEDS: SENNOSIDES/DOCUSATE SODIUM TAB PO SCH ×2 (08:47→23:10)
[2017-06-06] MEDS: PANTOPRAZOLE SODIUM 40 MG TAB PO SCH (08:47)
[2017-06-06] MEDS: METOPROLOL TARTRATE 25 MG TAB PO SCH ×2 (08:47→22:10)
[2017-06-06] MEDS: ATORVASTATIN CALCIUM 10 MG TAB PO SCH (08:47)
--- NOTE | 2017-06-06 13:50 | ASMTCMCOM ---
CM Note CM Note Notes: 06/06/2017 CM Note: Reviewed chart, spoke w/RN. PT recommends Home w/cardiac rehab. Case Management d/c poc: Home w/family support when medically stable with follow up as directed. Case Management available if needs change. 06/03/2017 CM Note Patient is POD #1 MICS right thoracotomy removal of left atrial mass, pathology pending. She is feeling well with some right-sided chest pain. Patient lives at home with and is normally independent in ADL's. Initial PT eval recommends home with potential home care, OT recommends home with family. CM will follow for discharge planning. Date Signed: 06/06/2017 01:49 PM Electronically Signed By:Rula Ceron
[2017-06-06] MEDS: ESZOPICLONE 3 MG PO SCH (22:08)
[2017-06-06] MEDS: HYDROCODONE/APAP 5/325 TAB PO PRN (22:09)
[2017-06-07] MEDS: HYDROCODONE/APAP 5/325 TAB PO PRN ×2 (04:23→22:12)
--- NOTE | 2017-06-07 07:41 | SOAPPROG ---
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 Denies dyspnea. Objective: Vital Signs Temp Pulse Resp BP Pulse Ox 37.0 C 78 18 135/77 H 97 06/07/17 04:00 06/07/17 04:00 06/07/17 04:00 06/07/17 04:00 06/07/17 04:00 Laboratory Results 06/05/17 05:55 06/05/17 05:55 06/06/17 06/07/17 06/08/17 05:59 05:59 05:59 Intake Total 510 890 Output Total 2900 990 120 Balance -2390 -100 -120 Physical Exam - Physical Exam General Appearance: WD/WN, alert, no apparent distress EENT: No scleral icterus (R), No scleral icterus (L) Neck: normal inspection Respiratory: No respiratory distress Cardiac/Chest: regular rate, rhythm, other (diffuse crepitus/swelling right chest) Abdomen: non-tender, soft, No distended Skin: normal color, warm/dry Extremities: No pedal edema Neuro/Psych: no motor/sensory deficits, alert, normal mood/affect, oriented x 3 ICD10 Worksheet Patient Problems: Problems Problem Status Onset Acute blood loss anemia Acute s/p excision of left atrial mass Acute ~06/02/17 CKD (chronic kidney disease) stage 3, GFR 30-59 ml/min Chronic Hemiparesis affecting left side as late effect of stroke Chronic Left atrial mass Chronic
[2017-06-07] MEDS: METOPROLOL TARTRATE 25 MG TAB PO SCH ×2 (08:36→22:13)
[2017-06-07] MEDS: LEVOTHYROXINE 75 MCG TAB PO SCH (08:38)
[2017-06-07] MEDS: ATORVASTATIN CALCIUM 10 MG TAB PO SCH (08:38)
[2017-06-07] MEDS: PANTOPRAZOLE SODIUM 40 MG TAB PO SCH (08:40)
[2017-06-07] MEDS: HEPARIN 5,000 UNIT/0.5 ML SYR SC SCH (08:48)
[2017-06-07] MEDS: SENNOSIDES/DOCUSATE SODIUM TAB PO SCH ×2 (08:49→22:16)
[2017-06-07] MEDS: ACETAMINOPHEN 325 MG TAB PO PRN (13:53)
[2017-06-07] MEDS ORDERED: fentaNYL 100 MCG/2 ML INJ ONE (16:34)
[2017-06-07] MEDS ORDERED: FLUMAZENIL 0.5 MG/5 ML MDV IVP ONE (16:34)
[2017-06-07] MEDS ORDERED: NALOXONE HCL 0.4 MG/ML INJ ONE (16:34)
[2017-06-07] MEDS ORDERED: MIDAZOLAM 2 MG/2 ML VIAL ONE (16:35)
[2017-06-07] MEDS: ESZOPICLONE 3 MG PO SCH (22:15)
[2017-06-08] MEDS: LEVOTHYROXINE 75 MCG TAB PO SCH (05:56)
[2017-06-08] MEDS: HYDROCODONE/APAP 5/325 TAB PO PRN ×2 (05:58→22:39)
[2017-06-08] MEDS: METOPROLOL TARTRATE 25 MG TAB PO SCH ×2 (08:04→09:50)
[2017-06-08] MEDS: ATORVASTATIN CALCIUM 10 MG TAB PO SCH (08:04)
[2017-06-08] MEDS: PANTOPRAZOLE SODIUM 40 MG TAB PO SCH (08:05)
--- NOTE | 2017-06-08 09:17 | SOAPPROG ---
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 Happy old tube is coming out today. Objective: Vital Signs Temp Pulse Resp BP Pulse Ox 37.1 C 98 16 127/80 H 97 06/08/17 08:00 06/08/17 08:00 06/08/17 08:00 06/08/17 08:04 06/08/17 08:00 Laboratory Results 06/05/17 05:55 06/05/17 05:55 06/07/17 06/08/17 06/09/17 05:59 05:59 05:59 Intake Total 890 600 Output Total 990 1854 Balance -100 -1254 Physical Exam - Physical Exam General Appearance: WD/WN, alert, no apparent distress EENT: No scleral icterus (R), No scleral icterus (L) Neck: normal inspection Respiratory: No respiratory distress Cardiac/Chest: regular rate, rhythm Abdomen: non-tender, soft, No distended Skin: normal color, warm/dry Extremities: No pedal edema Neuro/Psych: no motor/sensory deficits, alert, normal mood/affect, oriented x 3 ICD10 Worksheet Patient Problems: Problems Problem Status Onset Acute blood loss anemia Acute s/p excision of left atrial mass Acute ~06/02/17 CKD (chronic kidney disease) stage 3, GFR 30-59 ml/min Chronic Hemiparesis affecting left side as late effect of stroke Chronic Left atrial mass Chronic
[2017-06-08] MEDS: SENNOSIDES/DOCUSATE SODIUM TAB PO SCH (09:50)
[2017-06-08] MEDS: HEPARIN 5,000 UNIT/0.5 ML SYR SC SCH ×2 (14:19→20:33)
[2017-06-08] MEDS: ACETAMINOPHEN 325 MG TAB PO PRN (17:05)
[2017-06-08] MEDS: LISINOPRIL 10 MG TAB PO SCH (20:30)
[2017-06-08] MEDS ORDERED: SENNOSIDES/DOCUSATE SODIUM TAB PO PRN (21:00)
[2017-06-08] MEDS: ESZOPICLONE 3 MG PO SCH (22:36)
[2017-06-09 05:22] LABS: HEMATOCRIT 30.1 % (38.0-47.0); HEMOGLOBIN 9.9 g/dL (12.6-16.3); MEAN CELL HEMOGLOBIN 29.6 pg (27.9-34.1); MEAN CELL HEMOGLOBIN CONCENTR. 32.9 g/dL (32.4-36.7); MEAN CELL VOLUME 89.9 fL (81.5-99.8); RED BLOOD CELL COUNT 3.35 10^6/uL (4.18-5.33); RED CELL DISTRIBUTION WIDTH 13.8 % (11.5-15.2)
[2017-06-09 05:29] LABS: ANION GAP 7 mEq/L (8-16); CALCIUM 9.2 mg/dL (8.5-10.4); CARBON DIOXIDE 26 mEq/l (22-31); CHLORIDE 101 mEq/L (97-110); CREATININE 1.3 mg/dL (0.6-1.0); GLOMERULAR FILTRATION RATE 40; GLUCOSE 82 mg/dL (70-100); POTASSIUM 4.1 mEq/L (3.5-5.2); SODIUM 134 mEq/L (134-144)
[2017-06-09] MEDS: LEVOTHYROXINE 75 MCG TAB PO SCH (06:01)
[2017-06-09] MEDS: HEPARIN 5,000 UNIT/0.5 ML SYR SC SCH ×3 (06:01→20:07)
[2017-06-09] MEDS: ACETAMINOPHEN 325 MG TAB PO PRN ×3 (07:31→20:06)
--- NOTE | 2017-06-09 08:01 | SOAPPROG ---
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 Crepitus is bothersome but not worsening. Objective: Vital Signs Temp Pulse Resp BP Pulse Ox 37.1 C 85 15 116/68 90 L 06/09/17 07:46 06/09/17 07:46 06/09/17 07:46 06/09/17 07:46 06/09/17 07:46 Laboratory Results 06/09/17 03:43 06/09/17 03:43 06/08/17 06/09/17 06/10/17 05:59 05:59 05:59 Intake Total 600 1400 Output Total 1854 1464 Balance -1254 -64 Physical Exam - Physical Exam General Appearance: WD/WN, alert, no apparent distress EENT: No scleral icterus (R), No scleral icterus (L) Neck: normal inspection Respiratory: other (CT without airleak on suction), No respiratory distress Cardiac/Chest: regular rate, rhythm, other (diffuse crepitus) Abdomen: non-tender, soft, No distended Skin: normal color, warm/dry Extremities: No pedal edema Neuro/Psych: no motor/sensory deficits, alert, normal mood/affect, oriented x 3 ICD10 Worksheet Patient Problems: Problems Problem Status Onset Acute blood loss anemia Acute s/p excision of left atrial mass Acute ~06/02/17 CKD (chronic kidney disease) stage 3, GFR 30-59 ml/min Chronic Hemiparesis affecting left side as late effect of stroke Chronic Left atrial mass Chronic
[2017-06-09] MEDS: ATORVASTATIN CALCIUM 10 MG TAB PO SCH (09:44)
[2017-06-09] MEDS: PANTOPRAZOLE SODIUM 40 MG TAB PO SCH (09:45)
[2017-06-09] MEDS: METOPROLOL SUCCINATE XR 25 MG TAB PO SCH (09:45)
--- NOTE | 2017-06-09 16:04 | ASMTCMCOM ---
CM Note CM Note Notes: 06/09/2017 CM Note: Reviewed chart, PT continues to recommend home. Case Management d/c poc: Home with follow up as directed when medically stable. Pt plans to enroll in cardiac rehab. Anticipate d/c Tuesday. Case Management available if needs change. 06/06/2017 CM Note: Reviewed chart, spoke w/RN. PT recommends Home w/cardiac rehab. Case Management d/c poc: Home w/family support when medically stable with follow up as directed. Case Management available if needs change. 06/03/2017 CM Note Patient is POD #1 MICS right thoracotomy removal of left atrial mass, pathology pending. She is feeling well with some right-sided chest pain. Patient lives at home with and is normally independent in ADL's. Initial PT eval recommends home with potential home care, OT recommends home with family. CM will follow for discharge planning. Date Signed: 06/09/2017 04:03 PM Electronically Signed By:Rula Ceron RN
[2017-06-09] MEDS: LISINOPRIL 10 MG TAB PO SCH (20:02)
[2017-06-09] MEDS: ESZOPICLONE 3 MG PO SCH (22:33)
[2017-06-09] MEDS: HYDROCODONE/APAP 5/325 TAB PO PRN (22:47)
[2017-06-10] MEDS: HEPARIN 5,000 UNIT/0.5 ML SYR SC SCH ×2 (05:38→13:40)
[2017-06-10] MEDS: LEVOTHYROXINE 75 MCG TAB PO SCH (05:38)
[2017-06-10] MEDS: ACETAMINOPHEN 325 MG TAB PO PRN (05:43)
[2017-06-10] MEDS: traMADol 50 MG TAB PO PRN ×2 (08:50→10:32)
--- NOTE | 2017-06-10 08:54 | SOAPPROG ---
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 No antithrombotic prophylaxis necessary. Postoperative right PTX - Assoc with diffuse SQ emphysema - Small air leak not adequately controlled by suction and apical tube required. - Steady resolution of air by serial CXRs. 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 HTN - Controlled on combination therapy. Back on home regimen. Plan: Remove chest tube. Home later today. 06/10/17 08:48 Subjective: Feels well. No acute concerns. Excited to have tube out. Objective: Vital Signs Temp Pulse Resp BP Pulse Ox 36.5 C 88 18 123/70 H 92 06/10/17 04:00 06/10/17 04:00 06/10/17 04:00 06/10/17 04:00 06/10/17 04:00 Laboratory Results 06/09/17 03:43 06/09/17 03:43 06/09/17 06/10/17 06/11/17 05:59 05:59 05:59 Intake Total 1400 200 Output Total 1464 450 Balance -64 -250 Cardioresp status stable. CXR -> no PTX, diminishing SQ air Below preop wt. Physical Exam - Physical Exam General Appearance: alert, no apparent distress Respiratory: crackles (rt base), other (rt thoracotomy CDI; pigtail to pleurovac , thin serosang drainage, no air leak) Cardiac/Chest: regular rate, rhythm Abdomen: non-tender, soft Skin: warm/dry Extremities: other (no visible edema) ICD10 Worksheet Patient Problems: Problems Problem Status Onset Acute blood loss anemia Acute s/p excision of left atrial mass Acute ~06/02/17 CKD (chronic kidney disease) stage 3, GFR 30-59 ml/min Chronic Hemiparesis affecting left side as late effect of stroke Chronic Left atrial mass Chronic
[2017-06-10 09:06] VITALS: TEMP 98.7
[2017-06-10] MEDS: METOPROLOL SUCCINATE XR 25 MG TAB PO SCH (09:32)
[2017-06-10] MEDS: PANTOPRAZOLE SODIUM 40 MG TAB PO SCH (09:32)
[2017-06-10] MEDS: ATORVASTATIN CALCIUM 10 MG TAB PO SCH (09:32)
[2017-06-10] MEDS ORDERED: FLU VACC QS 2017-18 (3YR+)/PF 0.5 ML SYR (FLUARIX QUAD) IM ONE ×2 (10:54→13:30)
--- NOTE | 2017-06-10 11:24 | SOAPPROG ---
SOAP Progress Note Assessment/Plan: Assessment: Plan: 06/10/17 11:23 Seen with [facility] and c/o pain at ctube site and minithoracotomy afeb vss no wheeze no air leak minimal ctube drainage Plan remove ctube, likely home this pm Objective: Vital Signs Temp Pulse Resp BP Pulse Ox 37.1 C 98 20 119/60 91 L 06/10/17 09:03 06/10/17 09:39 06/10/17 09:39 06/10/17 09:39 06/10/17 09:39 Laboratory Results 06/09/17 03:43 06/09/17 03:43 06/09/17 06/10/17 06/11/17 05:59 05:59 05:59 Intake Total 1400 200 Output Total 1466 407 135 Balance -64 -250 -550 ICD10 Worksheet Patient Problems: Problems Problem Status Onset Acute blood loss anemia Acute s/p excision of left atrial mass Acute ~06/02/17 CKD (chronic kidney disease) stage 3, GFR 30-59 ml/min Chronic Hemiparesis affecting left side as late effect of stroke Chronic Left atrial mass Chronic
[2017-06-10 12:42] VITALS: BP 124/74
[2017-06-10 12:43] VITALS: PULSE 83; RESP 17; O2SAT 94
--- NOTE | 2017-06-10 15:30 | PDDCSUM ---
Discharge Summary Discharge Summary: DATE OF ADMISSION: 06/02/16 DATE OF DISCHARGE: 06/10/16 DISPOSITION: Home, self-care PRINCIPAL ADMISSION DIAGNOSIS: Left atrial mass PRINCIPAL DISCHARGE DIAGNOSES: 1. Left atrial papillary fibroelastoma 2. Status post mini right thoracotomy with peripheral cardiopulmonary bypass 3. Postoperative right pneumothorax 4. 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 Access via mini right lateral thoracotomy. Cardiopulmonary bypass via right femoral vessels. Primary repair of femoral artery and vein after decannulation. Intercostal nerve block with cryothermy. 06/07 (Katharine): CT guided placement of a 12 Fr pigtail catheter ABBREVIATED HOSPITAL COURSE BY ACTIVE PROBLEM LIST: 1. Left atrial mass - Successfully removed via mini thoracotomy. Hemodynamically stable early postop course without neurologic or renal dysfx. Mass demonstrated by path to be a benign papillary fibroelastoma. No antithrombotic prophylaxis necessary. 2. Postoperative right PTX - Assoc with diffuse SQ emphysema. Attributed to freeze injury from cryoprobe. Air leak not adequately controlled until second chest tube inserted. Tubes subsequently removed in serial fashion without significant delay or residual PTX. 3. Acute expected blood loss anemia - Stable. No need for transfusions. H/H > 8/ 26 maintained. DISCHARGE CLINICAL INFORMATION: Rt thoracotomy and rt groin CDI, sutured, +Dermabond. HR 80s-90s. SBP 120s. SpO2 94% RA. Wt 1kg below admission at 57.6 kilos. WBC 9, Hgb 9.9, HCT 30.1, Plt 205, Na 134, K 4.1, Cr 1.3 DISCHARGE MEDICATIONS: As on admission with the following NEW prescriptions: 1. Hydrocodone 5/325 one half to 2 tabs q6-8h prn incisional discomfort FOLLOW UP APPOINTMENTS: 1. CV surgery: with Dr Holden at [facility] on . 2. Cardiology: with Dr Lipscomb at [facility] within 4-6 weeks. Appointment to be established during surgical visit. FOLLOW UP TESTING: CXR prior to surgical appointment.
--- NOTE | 2017-06-10 17:49 | ASDISCHSUM ---
Discharge Information Plan Status:Home with Home Health Medically Cleared to Leave:06/10/2017 Discharge Date:06/10/2017 03:23 PM CM D/C Disposition:Home, Routine, Self-Care ADT D/C Disposition:Home, Routine, Self-Care Projected Discharge Date:06/06/2017 11:00 AM Transportation at D/C:Family Discharge Delay Reason: Follow-Up Date:06/06/2017 11:00 AM Discharge Slot: Final Diagnosis: Placement Information Referral Type:*Home Health Care Services Referral ID:[id number] Provider Name: Address 1: Phone Number: Address 2: Fax Number: City: Selection Factors: State: Patient Contact Information Contact Name:LIZZ Relationship: Address:[address] City:[facility] Phone: State/[facility] Code:[place] [address] Email: Financial Information Financial Class: Primary Plan Desc:MEDICARE INPATIENT Primary Plan Number:[id number] Secondary Plan Desc:[employer]/M[employer] SUPPLEMENT Secondary Plan Number:[id number] Assessment Information [facility] CM Progress Note CM Note CM Note Notes: Patient is POD #1 MICS right thoracotomy removal of left atrial mass, pathology pending. She is feeling well with some right-sided chest pain. Patient lives at home with and is normally independent in ADL's. Initial PT eval recommends home with potential home care, OT recommends home with family. CM will follow for discharge planning. Date Signed: 06/03/2017 03:55 PM Electronically Signed By:Keyla Rich RN [facility] CM Progress Note CM Note CM Note Notes: 06/06/2017 CM Note: Reviewed chart, spoke w/RN. PT recommends Home w/cardiac rehab. Case Management d/c poc: Home w/family support when medically stable with follow up as directed. Case Management available if needs change. 06/03/2017 CM Note Patient is POD #1 MICS right thoracotomy removal of left atrial mass, pathology pending. She is feeling well with some right-sided chest pain. Patient lives at home with and is normally independent in ADL's. Initial PT eval recommends home with potential home care, OT recommends home with family. CM will follow for discharge planning. Date Signed: 06/06/2017 01:49 PM Electronically Signed By:Rula Ceron RN [facility] Progress Note CM Note CM Note Notes: 06/09/2017 CM Note: Reviewed chart, PT continues to recommend home. Case Management d/c poc: Home with follow up as directed when medically stable. Pt plans to enroll in cardiac rehab. Anticipate d/c Tuesday. Case Management available if needs change. 06/06/2017 CM Note: Reviewed chart, spoke w/RN. PT recommends Home w/cardiac rehab. Case Management d/c poc: Home w/family support when medically stable with follow up as directed. Case Management available if needs change. 06/03/2017 CM Note Patient is POD #1 MICS right thoracotomy removal of left atrial mass, pathology pending. She is feeling well with some right-sided chest pain. Patient lives at home with and is normally independent in ADL's. Initial PT eval recommends home with potential home care, OT recommends home with family. CM will follow for discharge planning. Date Signed: 06/09/2017 04:03 PM Electronically Signed By:Rula Ceron RN Intervention Information Intervention Type:*IM-Signed Date of Service:06/10/2017 10:19 AM Patient Type:Inpatient Staff Member:Adina Ramos Hours: Discipline: Severity: Comment:
== END 2017-06-10 15:23 | disposition home or self-care (01) | DRG 229 ==
LOC: F3N 05:52 → F2N 09:31 → F2W 06-03 11:14
PROVIDERS: ADMIT Thoracic Surgery (Cardiothoracic Vascular Surgery); ATTEND Thoracic Surgery (Cardiothoracic Vascular Surgery)
PROC: 5A1221Z Performance of Cardiac Output, Continuous (ICD-10-PCS; principal; 2017-06-02 07:15)
PROC: 02B70ZZ Excision of Left Atrium, Open Approach (ICD-10-PCS; principal; 2017-06-02 07:15)
PROC: 0W9930Z Drainage of Right Pleural Cavity with Drainage Device, Percutaneous Approach (ICD-10-PCS; 2017-06-07)
DX: I42.4 Endocardial fibroelastosis (principal); J95.811 Postprocedural pneumothorax; D62 Acute posthemorrhagic anemia; I05.9 Rheumatic mitral valve disease, unspecified; I12.9 Hypertensive chronic kidney disease with stage 1 through stage 4 chronic kidney disease, or unspecified chronic kidney disease; N18.3 Chronic kidney disease, stage 3 (moderate); M10.471 Other secondary gout, right ankle and foot; G47.00 Insomnia, unspecified; I25.10 Atherosclerotic heart disease of native coronary artery without angina pectoris; E78.5 Hyperlipidemia, unspecified; E03.9 Hypothyroidism, unspecified; Z86.73 Personal history of transient ischemic attack (TIA), and cerebral infarction without residual deficits; Z23 Encounter for immunization
CPT/HCPCS: 82947-QW; 97116-GP; 97161-GP; 97165-GO; 97530-GP; G0008; G8978-GP-CI; G8979-GP-CI; G8980-GP-CI; G8987-GO-CI; G8988-GO-CI; G8989-GO-CI; J0153; J0171; J0282; J0690; J1265; J1644; J1815; J1885; J1940; J2001; J2250; J2260; J2310; J2370; J2405; J2704; J2720; J2765; J2930; J3010; J3475; J7060; P9041

== ENCOUNTER → 2017-06-16 | Outpatient (CLI) | payer OTHER, MEDICARE | LOC: FIMAGING 10:51 | PROVIDERS: ATTEND Thoracic Surgery (Cardiothoracic Vascular Surgery) | DX: Z09 Encounter for follow-up examination after completed treatment for conditions other than malignant neoplasm (principal); Z98.890 Other specified postprocedural states; Z86.79 Personal history of other diseases of the circulatory system ==

== ENCOUNTER → 2017-06-29 | Outpatient (CLI) | payer OTHER, MEDICARE | LOC: FIMAGING 15:40 | PROVIDERS: ATTEND Thoracic Surgery (Cardiothoracic Vascular Surgery) | DX: I51.9 Heart disease, unspecified (principal); J98.11 Atelectasis ==

== ENCOUNTER → 2017-07-14 | Outpatient (CLI) | payer OTHER, MEDICARE | LOC: FIMAGING 10:50 | PROVIDERS: ATTEND Internal Medicine | DX: J98.11 Atelectasis (principal) ==

== ENCOUNTER → 2017-07-18 | Outpatient (CLI) | payer OTHER, MEDICARE | LOC: FIMAGING 09:42 → EDSTATUS 08-03 11:19 | PROVIDERS: ATTEND Thoracic Surgery (Cardiothoracic Vascular Surgery) | DX: I51.9 Heart disease, unspecified (principal); R05 Cough ==

== ENCOUNTER 2017-07-20 11:16 | Inpatient (IN) | payer OTHER, MEDICARE ==
[2017-07-20] MEDS ORDERED: NALOXONE HCL 0.4 MG/ML INJ ONE (11:35)
[2017-07-20] MEDS ORDERED: MIDAZOLAM 2 MG/2 ML VIAL ONE (11:36)
[2017-07-20] MEDS ORDERED: fentaNYL 100 MCG/2 ML INJ ONE (11:37)
[2017-07-20] MEDS ORDERED: FLUMAZENIL 0.5 MG/5 ML MDV IVP ONE (11:37)
[2017-07-20 12:01] LABS: INR 1.13 (0.83-1.16); PROTIME(PATIENT) 14.4 SEC (12.0-15.0)
--- NOTE | 2017-07-20 15:12 | PDGENHP ---
History and Physical - Chief Complaint right empyema - History of Present Illness 77F s/p left atrial papillary fibroelastoma removal via right mini-thoracotomy on 06/02/17 with 2 week h/o malaise, chills, cough, and SOB. Pt states her appetite has been poor and she has lost 15 pounds over 2 weeks as a result. Pt was seen by her PCP for these complaints and a CT of the chest was performed which revealed a small right-sided loculated pleural collection concerning for an empyema. Pt is s/p IR guided aspiration of the collection today which returned purulence confirming a dx of empyema. Aspirate was sent for further analysis and the pt is being admitted for further treatment. She is currently comfortable without additional complaints. History Information - Allergies/Home Medication List Allergies/Adverse Reactions: hydrochlorothiazide Allergy (Severe, Verified 05/31/17 10:12) Rash Home Medications: Eszopiclone 3 mg PO HS 02/01/16 [Last Taken 07/19/17 21:00] Levothyroxine [Synthroid 75 mcg (*)] 75 mcg PO DAILY06 02/01/16 [Last Taken 09:00] Metoprolol Succinate Xr [Toprol Xl 25 mg (*)] 12.5 mg PO DAILY 02/01/16 [Last Taken 07/20/17 09:00] Atorvastatin Calcium [Lipitor 10 mg (*)] 10 mg PO DAILY 04/05/17 [Last Taken ] Lisinopril [Zestril 10 mg (*)] 10 mg PO HS 04/05/17 [Last Taken 07/19/17 18:00] amLODIPine BESYLATE [Norvasc 10 mg (*)] 10 mg PO DAILY 05/31/17 [Last Taken 09:00] Herbals/Supplements -Info Only 1 ea PO DAILY 06/01/17 [Last Taken 07/19/17] I have personally reviewed and updated: family history, medical history, social history, surgical history - Past Medical History Additional medical history: 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 Hypertension. Hypothyroidism. 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 - Surgical History Additional surgical history: As per HPI, left shoulder, sinus, last transesophageal echocardiogram January of 2016 demonstrating no intra-atrial thrombus, mild mitral regurgitation - Family History Additional family history: mother with dementia and coronary artery disease in her 90s, father with intracranial hemorrhage in his 70s - Social History Smoking Status: Never smoked Additional social history: physically active, was camping with her during the onset of symptoms Review of Systems Review of Systems: ROS: 10pt was reviewed & negative except for what was stated in HPI & below Constitutional: Reports: chills, malaise, weakness, weight loss EENMT: Reports: no symptoms Cardiac: Reports: chest pain (right sided) Respiratory: Reports: cough, shortness of breath Gastrointestinal: Reports: other (loss of appetite) Genitourinary: Reports: no symptoms Muscolosketal: Reports: no symptoms Skin: Reports: no symptoms Neurological: Reports: no symptoms Physical Exam Physical Exam: Constitutional: no apparent distress, appears nourished, not in pain Eyes: anicteric sclera Ears, Nose, Mouth, Throat: moist mucous membranes Cardiovascular: regular rate and rhythym Respiratory: no respiratory distress, no rales or rhonchi, clear to auscultation , other (right sided thoracotomy covered by drain dressing) Gastrointestinal: soft, non-tender abdomen Skin: warm, normal color Musculoskeletal: full muscle strength Neurologic: AAOx3 Psychiatric: interacting appropriately, not anxious, not encephalopathic, thought process linear Lab Data & Imaging Review 07/20/17 11:40 Hgb 12.3 g/dL (12.6-16.3) L 07/20/17 11:40 Hct 36.8 % (38.0-47.0) L 07/20/17 11:40 Plt Count 480 10^3/uL (150-400) H 07/20/17 11:40 PT 14.4 SEC (12.0-15.0) 07/20/17 11:40 INR 1.13 (0.83-1.16) 07/20/17 11:40 APTT 33.4 SEC (23.0-38.0) 07/20/17 11:40 Visualized and Interpreted Chest x-ray results: Yes Chest X-Ray results: other (right opacity) Visualized and Interpreted EKG results: Yes EKG Interpretation: Positive for: normal sinsus rhythm Assessment & Plan Assessment: Right empyema Plan: - ID consult (called) - Labs
[2017-07-20] MEDS ORDERED: BISACODYL 10 MG SUPP PR PRN (15:26)
[2017-07-20] MEDS ORDERED: MAGNESIUM HYDROXIDE 30 ML UDCUP PO PRN (15:26)
[2017-07-20] MEDS ORDERED: traMADol 50 MG TAB PO PRN (15:26)
[2017-07-20] MEDS ORDERED: CEPACOL LOZENGE PO PRN (15:26)
[2017-07-20] MEDS ORDERED: LACTULOSE 20 GM/30 ML UDCUP PO PRN (15:26)
[2017-07-20] MEDS ORDERED: POLYETHYLENE GLYCOL 3350 17 GM PKT PO PRN (15:26)
[2017-07-20] MEDS ORDERED: ONDANSETRON DISINTEGRATING 4 MG TAB PO PRN (15:34)
[2017-07-20] MEDS: ACETAMINOPHEN 325 MG TAB PO PRN (16:04)
[2017-07-20] MEDS ORDERED: NS 1,000 ML IV SCH (18:15)
[2017-07-20] MEDS: VANCOMYCIN 500 MG in D5W 100 ML IV SCH (18:17)
--- NOTE | 2017-07-20 19:38 | GCON ---
[f rep st] CONSULTATION INFECTIOUS DISEASE CONSULTATION. DATE OF CONSULTATION: 07/20/2017 PHYSICIAN REQUESTING CONSULTATION: Sterling Holden. REASON FOR CONSULTATION: Right-sided empyema postoperatively from right mini thoracotomy 06/02/2017. HISTORY OF PRESENT ILLNESS: A 77-year-old woman with a past medical history of chronic renal insuffi ciency stage IV, baseline creatinine of 1.3-1.6, whose current problems date back to 04/05/2017, when she presented to the emergency room with severe dizziness and weakness and subsequently found to hav e cerebellar CVA. 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 Due to obvious complications relating to this atrial fibroelastoma, it was elected klaus t patient underwent a minimally invasive right thoracotomy with excision of mass from the posterior l eaflet. Postoperatively, her course was complicated by persistent right-sided air leak eventually requiring a dditional chest tube. She was discharged from the hospital 06/10/2017, and reports that she was doin g quite well initially and back to her usual activity and able to participate in cardiac rehab. Approximately 2 weeks ago patient developed increasing malaise and anorexia with an episode of chills . She presented to primary care for evaluation on 07/14/2017, and blood cultures were obtained and e ventually negative. A chest CT was performed on 07/14/2017, which showed a loculated pleural effusio n on the right described as a hematoma versus evolving empyema. Today patient underwent aspiration o f this area by IR guidance and pure purulence was obtained and sent down to the lab for evaluation. ID is consulted for antibiotic management. ALLERGIES: Hydrochlorothiazide causes rash. INPATIENT MEDICINES: Include Tylenol as needed, [place] as needed, Dulcolax as needed, lactulose as ne eded, milk of magnesia as needed, Zofran as needed, MiraLAX as needed, Senokot as needed, Cepacol mira enges as needed, Ultram as needed, and vancomycin 500 mg IV q.24 was started by me. At home she also takes Eszopiclone 3 mg at night, Synthroid 75 mcg daily, atorvastatin 10 mg daily, l isinopril 10 mg daily, amlodipine 10 mg daily. 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 PAST SURGICAL HISTORY: Left atrial fibroelastoma removal. 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 She is physically active with her . She has never smoked. No recent internat ional travel. FAMILY HISTORY: Positive for dementia and coronary artery disease and intracranial hemorrhage. REVIEW OF SYSTEMS: A complete 10-point review of systems was performed and is negative except as men tioned in the HPI. She did report a 15 pound weight loss. In addition, this week she developed a no nproductive cough. PHYSICAL EXAM: VITAL SIGNS: BP 95/74, heart rate 95, respiratory rate 20, saturation 99% on 2 L, te mperature 37.6. She was not febrile throughout her last hospital course. GENERAL: This is a pleasant , nontoxic-appearing woman with fluent speech. No acute distress. HEENT: She has evidence of bilate ral cataract surgery. No conjunctival hemorrhages. Oropharynx: She has good dentition. Moist mucou s membranes. NECK: Supple. No lymphadenopathy. CARDIOVASCULAR: Regular rate, very faint systolic murmur. CHEST: No respiratory distress. No crackles. She had a little bit of splinting due to pain on the right side with her DAQUAN drain in place with a small amount of blood on the lateral mid chest. Thoracotomy scar along the edge of the breast was completely healed. ABDOMEN: Soft, nontender. Tye wel sounds are present. SKIN: Normal color. No rashes. MUSCULOSKELETAL: She had no joint swelling . She had full range of motion. NEUROLOGIC: She was alert, oriented x4. Moving all 4 extremities appropriately. LABORATORY DATA: White count 11.7, hematocrit 36, platelets of 480, 77% neutrophils, 6.3% lymphocyte s. Creatinine is 1.5. AST 22, ALT 21, alkaline phosphatase 114. CRP is 174. Urinalysis was negati ve 07/14/2017. Chest CT was personally reviewed by me which showed this 4 x 2 x 5 cm dense loculated pleural fluid c ollection. ASSESSMENT AND PLAN: A 77-year-old woman who presents with severe malaise, weight loss and cough, fo und to have a dense fluid collection adjacent to the surgical site/chest tube site, now found to have gross purulence consistent with empyema. Most likely organisms include staph or strep and with rece nt hospitalization and she is a former healthcare worker, there is some risk for MRSA. Will await ad ditional Gram stain and culture data. In the meantime, would recommend empiric antibiotics after 2 se ts of blood cultures are obtained. Would dose vancomycin for creatinine clearance of 27, which could range from 500-750. Will shoot for the lower dose at this point and monitor closely. Could conside r increasing dose if definitive evidence shows MRSA. Duration and modality of administration of anti biotics will be based on further data, but she likely needs prolonged antibiotic therapy. Thank you for this consultation. We will continue to follow on a daily basis. /[id number]/MODL
[2017-07-20] MEDS: ZOLPIDEM TARTRATE 5 MG TAB PO PRN (22:10)
[2017-07-20] MEDS: HYDROCODONE/APAP 5/325 TAB PO PRN (22:10)
[2017-07-20] MEDS: SENNOSIDES/DOCUSATE SODIUM TAB PO SCH (22:11)
[2017-07-20] MEDS: SODIUM CL NASAL 45 ML BTL EACHNARE SCH (22:13)
[2017-07-20] MEDS: ASPIRIN EC 81 MG TAB PO SCH (22:14)
[2017-07-21] MEDS: ACETAMINOPHEN 325 MG TAB PO PRN ×2 (03:53→12:28)
[2017-07-21] MEDS: LEVOTHYROXINE 75 MCG TAB PO SCH (07:07)
[2017-07-21] MEDS: METOPROLOL SUCCINATE XR 25 MG TAB PO SCH (08:48)
[2017-07-21] MEDS: SENNOSIDES/DOCUSATE SODIUM TAB PO SCH ×2 (08:48→22:13)
[2017-07-21] MEDS: SODIUM CL NASAL 45 ML BTL EACHNARE SCH ×2 (08:48→22:20)
--- NOTE | 2017-07-21 14:56 | SOAPPROG ---
SOAP Progress Note Assessment/Plan: Assessment: POD#1 CT guided drainage of loculated fluid collection rt pleural space with bx of adjacent lung 7 wks s/p MICS rt thoracotomy removal LA papillary fibroelastoma, complicated by rt PTX w diffuse SQ emphysema, need for 2nd chest tube, and delayed removal of last tube. Failure to thrive with dense loculated collection along course of prior chest tube - Aspirate suggestive of empyema. ID consulted and started on IV vanco pending culture and tissue results. CKD3 - Baseline Cr 1.3-1.6. Stable. Care with BP and fluid management. Hx HTN - Relatively low BP on admission, responsive to IVF. BB resumed w hold parameters. CCB and ARB held. Plan: Cont pigtail drainage. Await cx results to direct PICC, possible OR exploration. 07/21/17 14:55 Subjective: Doing ok. No more chills. Still coughing a fair bit. Requests resumption of allopurinol (uptitration in progress) for "my gout". Objective: Vital Signs Temp Pulse Resp BP Pulse Ox 36.8 C 107 H 16 119/69 92 07/21/17 13:13 07/21/17 13:13 07/21/17 13:13 07/21/17 13:13 07/21/17 13:13 Microbiology 07/20/17 14:00 Gram Stain - Final Pleural Fluid - Aspirate Laboratory Results 07/20/17 11:40 07/21/17 05:23 07/20/17 07/21/17 07/22/17 05:59 05:59 05:59 Intake Total 1930 Output Total 15 Balance 1930 -15 PT 14.4 SEC (12.0-15.0) 07/20/17 11:40 INR 1.13 (0.83-1.16) 07/20/17 11:40 Afeb. Mild leukocytosis. SR/ST with adequate BP and stable Cr. GS of pl fluid NOS. Min catheter output. Physical Exam - Physical Exam General Appearance: alert, no apparent distress Respiratory: crackles (scattered rt sided), other (pigtail cath to bulb suction , clear serosang drainage) Cardiac/Chest: regular rate, rhythm, tachycardia Abdomen: soft Extremities: other (no visible edema) ICD10 Worksheet Patient Problems: Problems Problem Status Onset Acute blood loss anemia Acute s/p excision of left atrial mass Acute ~06/02/17 CKD (chronic kidney disease) stage 3, GFR 30-59 ml/min Chronic Hemiparesis affecting left side as late effect of stroke Chronic Left atrial mass Chronic
--- NOTE | 2017-07-21 16:23 | PCMIDPN ---
Assessment/Plan: Assessment: right-sided complex pleural space collection/empyema. Purulent fluid withdrawn previously. Culture not growing yet. Currently covered with vancomycin monotherapy given prior history of multiple chest tubes in that side. Plan: 1. Continue vancomycin monotherapy. 2. monitor body fluid culture for growth. 3. follow clinical course. 07/21/17 17:21 Subjective: Patient is resting in her hospital chair. is in room with her. She has discomfort with the chest tubes are inserted on the right side. More discomfort with coughing. No fevers. Objective: Vancomycin # 1 Vital Signs Temp Pulse Resp BP Pulse Ox 36.8 C 107 H 16 119/69 92 07/21/17 13:13 07/21/17 13:13 07/21/17 13:13 07/21/17 13:13 07/21/17 13:13 Microbiology 07/20/17 14:00 Gram Stain - Final Pleural Fluid - Aspirate Laboratory Results 07/20/17 11:40 07/21/17 05:23 07/20/17 07/21/17 07/22/17 05:59 05:59 05:59 Intake Total 1929 Output Total 15 Balance 1929 - - Physical Exam General Appearance: WD/WN, alert, no apparent distress, non-toxic Respiratory: lungs clear, normal breath sounds, No respiratory distress Cardiac/Chest: regular rate, rhythm, No tachycardia Skin: normal color, warm/dry, No rash Neuro/Psych: alert, normal mood/affect, oriented x 3 ICD10 Worksheet Patient Problems: Problems Problem Status Onset Acute blood loss anemia Acute s/p excision of left atrial mass Acute ~06/02/17 CKD (chronic kidney disease) stage 3, GFR 30-59 ml/min Chronic Hemiparesis affecting left side as late effect of stroke Chronic Left atrial mass Chronic
[2017-07-21] MEDS: VANCOMYCIN 500 MG in D5W 100 ML IV SCH (17:36)
[2017-07-21] MEDS: HYDROCODONE/APAP 5/325 TAB PO PRN (22:12)
[2017-07-21] MEDS: ASPIRIN EC 81 MG TAB PO SCH ×2 (22:13→22:20)
[2017-07-21] MEDS: ZOLPIDEM TARTRATE 5 MG TAB PO PRN (22:17)
[2017-07-22] MEDS: ACETAMINOPHEN 325 MG TAB PO PRN ×2 (06:26→13:46)
[2017-07-22] MEDS: LEVOTHYROXINE 75 MCG TAB PO SCH (06:26)
--- NOTE | 2017-07-22 07:35 | SOAPPROG ---
SOAP Progress Note Assessment/Plan: POD#2: CT guided aspiration of rt pleural collection with chest tube placement 06/02/17: s/p MICS rt thoracotomy removal LA papillary fibroelastoma Right empyema/loculated collection s/p aspiration/chest tube placement - Continue empiric vancomycin as per ID as cultures are pending - Ideally will go home later today if decision for shelter ABX can be determined CKD3 - Baseline Cr 1.3-1.6. Stable. Care with BP and fluid management. Hx HTN - Relatively low BP on admission, responsive to IVF. BB resumed w hold parameters. CCB and ARB held. Subjective: Still coughing. Denies SOB. Pain well-controlled. Objective: Vital Signs Temp Pulse Resp BP Pulse Ox 36.6 C 86 16 117/70 91 L 07/22/17 03:35 07/22/17 03:35 07/22/17 03:35 07/22/17 03:35 07/22/17 03:35 Microbiology 07/20/17 14:00 Gram Stain - Final Pleural Fluid - Aspirate Laboratory Results 07/20/17 11:40 07/21/17 05:23 07/21/17 07/22/17 07/23/17 05:59 05:59 05:59 Intake Total 1930 660 Output Total 25 Balance 1930 635 PT 14.4 SEC (12.0-15.0) 07/20/17 11:40 INR 1.13 (0.83-1.16) 07/20/17 11:40 Physical Exam - Physical Exam General Appearance: WD/WN, alert, no apparent distress EENT: No scleral icterus (R), No scleral icterus (L) Neck: normal inspection Respiratory: No respiratory distress Cardiac/Chest: regular rate, rhythm Abdomen: non-tender, soft, distended Skin: normal color, warm/dry Extremities: No pedal edema Neuro/Psych: no motor/sensory deficits, alert, normal mood/affect, oriented x 3 ICD10 Worksheet Patient Problems: Problems Problem Status Onset Acute blood loss anemia Acute s/p excision of left atrial mass Acute ~06/02/17 CKD (chronic kidney disease) stage 3, GFR 30-59 ml/min Chronic Hemiparesis affecting left side as late effect of stroke Chronic Left atrial mass Chronic
[2017-07-22] MEDS: ALLOPURINOL 100 MG TAB PO SCH (09:45)
[2017-07-22] MEDS: SENNOSIDES/DOCUSATE SODIUM TAB PO SCH ×2 (09:46→21:08)
[2017-07-22] MEDS: METOPROLOL SUCCINATE XR 25 MG TAB PO SCH (09:46)
[2017-07-22] MEDS: SODIUM CL NASAL 45 ML BTL EACHNARE SCH ×2 (09:55→21:08)
[2017-07-22] MEDS ORDERED: ALTEPLASE 2 MG VIAL IVP PRN (11:41)
--- NOTE | 2017-07-22 16:49 | ASMTCASEMG ---
Living Arrangements What is your living Answers: With Spouse arrangement? Who do you live with? Type Of Residence What kind of residence do Answers: House you live in? Discharge Plan Comments Coordination Status Comments Notes: CM met w/ pt for dispo planning. CM spoke w/ Dr. Zee regarding IV antibiotics going forward. Pt had a PICC line placed today. 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 Pt reports that she does not have a preference w/ a particular agency. Referrals have been made. CM to follow. Date Signed: 07/22/2017 04:48 PM Electronically Signed By:JOHN Powers
--- NOTE | 2017-07-22 18:13 | PCMIDPN ---
Assessment/Plan: Assessment/Plan: * Right-sided empyema status post percutaneous drainage: Body fluid culture no growth to date. Have asked lab to set up specimen anaerobically and for AFB/ fungi. Continue vancomycin empirically which covers most typical pathogens in this setting. Will increase dose to 750 mg IV Q 24 hours based on trough. Discharge planning underway for outpatient IV antibiotic therapy. PICC line placed earlier today. Risks and benefits of antibiotic therapy and PICC line were discussed with patient today including potential for nephrotoxicity or allergic reaction with vancomycin. 07/22/17 18:10 Subjective: Patient complains of malaise. PICC line placed earlier today. Objective: Vital Signs Temp Pulse Resp BP Pulse Ox 37.3 C 95 20 115/62 92 07/22/17 17:38 07/22/17 17:38 07/22/17 17:38 07/22/17 17:38 07/22/17 17:38 Microbiology 07/20/17 14:00 Gram Stain - Final Pleural Fluid - Aspirate Laboratory Results 07/20/17 11:40 07/22/17 15:05 07/21/17 07/22/17 07/23/17 05:59 05:59 05:59 Intake Total 1930 660 Output Total 25 Balance 1930 635 Vancomycin # 2 Laboratory Tests 07/22/17 15:05 Vancomycin Trough 5.4 Pleural fluid culture no growth to date - Physical Exam General Appearance: alert, no apparent distress, thin EENT: No thrush, No conjunctival petechiae Respiratory: crackles (Few on right) Cardiac/Chest: regular rate, rhythm Extremities: No inflammation Abdomen: non-tender, No distended Skin: No embolic lesions ICD10 Worksheet Patient Problems: Problems Problem Status Onset Acute blood loss anemia Acute s/p excision of left atrial mass Acute ~06/02/17 CKD (chronic kidney disease) stage 3, GFR 30-59 ml/min Chronic Hemiparesis affecting left side as late effect of stroke Chronic Left atrial mass Chronic
[2017-07-22] MEDS: VANCOMYCIN 750 MG in D5W 150 ML IV SCH (18:48)
[2017-07-22] MEDS: VANCOMYCIN 500 MG in D5W 100 ML IV SCH (19:21)
[2017-07-22] MEDS: HYDROCODONE/APAP 5/325 TAB PO PRN (20:32)
[2017-07-22] MEDS: ZOLPIDEM TARTRATE 5 MG TAB PO PRN (20:33)
[2017-07-22] MEDS: ASPIRIN EC 81 MG TAB PO SCH (20:34)
[2017-07-22 23:36] VITALS: RESP 16
[2017-07-23] MEDS: HYDROCODONE/APAP 5/325 TAB PO PRN (06:19)
[2017-07-23 06:40] LABS: PLATELET COUNT 351 10^3/uL (150-400)
[2017-07-23] MEDS: LEVOTHYROXINE 75 MCG TAB PO SCH (08:16)
[2017-07-23] MEDS: METOPROLOL SUCCINATE XR 25 MG TAB PO SCH (08:39)
[2017-07-23] MEDS: SODIUM CL NASAL 45 ML BTL EACHNARE SCH (08:39)
[2017-07-23] MEDS: ALLOPURINOL 100 MG TAB PO SCH (08:41)
--- NOTE | 2017-07-23 08:45 | SOAPPROG ---
SOAP Progress Note Assessment/Plan: POD#3: CT guided aspiration of rt pleural collection with chest tube placement 06/02/17: s/p MICS rt thoracotomy removal LA papillary fibroelastoma Right empyema/loculated collection s/p aspiration/chest tube placement - Continue empiric vancomycin as per ID. PICC line placed. Plan for home today with home services for vanco administration. CKD3 - Baseline Cr 1.3-1.6. Stable. Care with BP and fluid management. Hx HTN - BB resumed w hold parameters. CCB/ARB held d/t to low blood pressure. Subjective: Feeling a little better this morning. Appetite improving. Still coughing. Objective: Vital Signs Temp Pulse Resp BP Pulse Ox 36.7 C 90 16 116/69 90 L 07/23/17 07:38 07/23/17 07:38 07/23/17 07:38 07/23/17 07:38 07/23/17 07:38 Microbiology 07/20/17 14:00 Mycobacterial Smear (BHARGAV) - Final Pleural Fluid - Aspirate 07/20/17 14:00 Gram Stain - Final Pleural Fluid - Aspirate Laboratory Results 07/23/17 06:20 07/23/17 06:30 07/22/17 07/23/17 07/24/17 05:59 05:59 05:59 Intake Total 660 520 Output Total 25 6 Balance 635 514 PT 14.4 SEC (12.0-15.0) 07/20/17 11:40 INR 1.13 (0.83-1.16) 07/20/17 11:40 Physical Exam - Physical Exam General Appearance: WD/WN, alert, no apparent distress EENT: No scleral icterus (R), No scleral icterus (L) Neck: normal inspection Respiratory: No respiratory distress Cardiac/Chest: regular rate, rhythm Abdomen: non-tender, soft, No distended Skin: normal color, warm/dry Extremities: No pedal edema Neuro/Psych: no motor/sensory deficits, alert, normal mood/affect, oriented x 3 ICD10 Worksheet Patient Problems: Problems Problem Status Onset Acute blood loss anemia Acute s/p excision of left atrial mass Acute ~06/02/17 CKD (chronic kidney disease) stage 3, GFR 30-59 ml/min Chronic Hemiparesis affecting left side as late effect of stroke Chronic Left atrial mass Chronic
[2017-07-23] MEDS: SENNOSIDES/DOCUSATE SODIUM TAB PO SCH (09:03)
[2017-07-23] MEDS ORDERED: guaiFENesin/CODEINE PHOS 10 ML UDCUP PO PRN (10:50)
[2017-07-23] MEDS ORDERED: BENZONATATE 100 MG CAP PO PRN (10:53)
--- NOTE | 2017-07-23 14:25 | PCMIDPN ---
Assessment/Plan: Assessment/Plan: * Right-sided empyema status post percutaneous drainage: Cultures remain no growth to date. Plan to continue empiric vancomycin given potential for resistant gram-positive isak postoperatively. Drain has been removed from pleural space. Will need to follow imaging over time to assess for resolution of empyema. Discharge planning working on outpatient IV antibiotic therapies. If cannot receive antibiotics at home, then will arrange for daily infusions on . 07/23/17 14:23 Subjective: Patient with less chest pain. Complains of continued cough. Drain removed today. Objective: Vital Signs Temp Pulse Resp BP Pulse Ox 36.7 C 92 16 101/72 97 07/23/17 11:48 07/23/17 11:48 07/23/17 11:48 07/23/17 11:48 07/23/17 11:48 Microbiology 07/20/17 14:00 Gram Stain - Final Pleural Fluid - Aspirate 07/20/17 14:00 Mycobacterial Smear (BHARGAV) - Final Pleural Fluid - Aspirate Laboratory Results 07/23/17 06:20 07/23/17 06:30 07/22/17 07/23/17 07/24/17 05:59 05:59 05:59 Intake Total 660 520 Output Total 25 6 Balance 635 514 Vancomycin # 3 Cultures no growth to date AFB smear negative - Physical Exam General Appearance: alert, no apparent distress EENT: No scleral icterus, No thrush Respiratory: crackles (Few on right), other (Frequent cough present), No respiratory distress Cardiac/Chest: regular rate, rhythm ICD10 Worksheet Patient Problems: Problems Problem Status Onset Acute blood loss anemia Acute s/p excision of left atrial mass Acute ~06/02/17 CKD (chronic kidney disease) stage 3, GFR 30-59 ml/min Chronic Hemiparesis affecting left side as late effect of stroke Chronic Left atrial mass Chronic
[2017-07-23 15:35] VITALS: BP 132/59; PULSE 103; TEMP 97.6; O2SAT 92
--- NOTE | 2017-07-23 16:08 | ASMTCMCOM ---
CM Note CM Note Notes: Today Davidr spoke with [facility] about Pt's option for home IV antibiotics. Henri at [facility] quoted SWer $271.20 per week for IVs and supplies. Pt needs six weeks worth. SWer met w/ Pt. in room alone to discuss her options. Pt. declined home IV antibiotics due to cost. SWer let Donaldo know. Pt. elects to go to [facility] [place]. [facility] set up Pt an appointment at 14:00 for tomorrow based on Pt's wishes. Davidr also consulted w/ Dr. Nestor Zee to coordinate Pt's care. Dr. Zee in agreement with plan. Pt. likely to be d/c'ed tonight by Dr. Holden's PA. Current plan: D/c this evening to home w/ . Tomorrow begin daily IV antibiotic infusions at [address] [place] [address] at 14:00. Date Signed: 07/23/2017 04:07 PM Electronically Signed By:Leah Beyer LCSW
--- NOTE | 2017-07-23 16:08 | ASMTCMCOM ---
CM Note CM Note Notes: Today Davidr spoke with [facility] about Pt's option for home IV antibiotics. Henri at [facility] quoted SWer $271.20 per week for IVs and supplies. Pt needs six weeks worth. SWer met w/ Pt. in room alone to discuss her options. Pt. declined home IV antibiotics due to cost. SWer let Donaldo know. Pt. elects to go to [facility] [place]. [facility] set up Pt an appointment at 14:00 for tomorrow based on Pt's wishes. Davidr also consulted w/ Dr. Nestor Zee to coordinate Pt's care. Dr. Zee in agreement with plan. Pt. likely to be d/c'ed tonight by Dr. Holden's PA. Current plan: D/c this evening to home w/ . Tomorrow begin daily IV antibiotic infusions at [address] [place] [address] at 14:00. Date Signed: 07/23/2017 04:07 PM Electronically Signed By:Leah Beyer LCSW
--- NOTE | 2017-07-23 16:08 | ASMTCMCOM ---
CM Note CM Note Notes: Today Davidr spoke with [facility] about Pt's option for home IV antibiotics. Henri at [facility] quoted SWer $271.20 per week for IVs and supplies. Pt needs six weeks worth. SWer met w/ Pt. in room alone to discuss her options. Pt. declined home IV antibiotics due to cost. SWer let Donaldo know. Pt. elects to go to [facility] [place]. [facility] set up Pt an appointment at 14:00 for tomorrow based on Pt's wishes. Davidr also consulted w/ Dr. Nestor Zee to coordinate Pt's care. Dr. Zee in agreement with plan. Pt. likely to be d/c'ed tonight by Dr. Holden's PA. Current plan: D/c this evening to home w/ . Tomorrow begin daily IV antibiotic infusions at [address] [place] [address] at 14:00. Date Signed: 07/23/2017 04:07 PM Electronically Signed By:Leah Beyer LCSW
[2017-07-23] MEDS: VANCOMYCIN 750 MG in D5W 150 ML IV SCH (16:13)
--- NOTE | 2017-07-23 17:23 | PDDCSUM ---
Discharge Summary Discharge Summary: ADMISSION DATE: 07/20/17 DISCHARGE DATE: 07/23/17 ADMISSION DX: 1. Right empyema 2. Hypertension DISCHARGE DX: 1. Right empyema 2. Hypertension PROCEDURES 07/20/17, Radiology: 1. Aspiration right empyema, chest tube placement 07/12/17, Radiology: 1. [facility] COURSE BY PROBLEM LIST 1. Right empyema - s/p aspiration and chest tube placement by radiology. Cultures negative to date. Empiric vancomycin prescribed as per ID. Codeine Phosphate/Guaifenesin and Tessalon Pearles prescribed for cough. 2. Hypertension - metoprolol continued while mallory-inhibitor and calcium channel yessica stopped d/t low blood pressure. CONDITION Fair DISPOSITION Home, self-care ACTIVITY No restrictions D/C MEDICATIONS New: 1. Benzonatate [Tessalon Pearles] 100 mg PO TID PRN #90 2. Codeine Phosphate/Guaifenesin [Guaifen-Codeine 200-20 mg/10Ml] 10 ml PO Q4H PRN 3. Vancomycin [Vancomycin (*)] 750 mg IV Q24H Continue: 1. Levothyroxine [Synthroid 75 mcg (*)] 75 mcg PO DAILY@07 2. Metoprolol Succinate Xr [Toprol Xl 25 mg (*)] 12.5 mg PO DAILY 3. Atorvastatin Calcium [Lipitor 10 mg (*)] 10 mg PO DAILY 4. Herbals/Supplements -Info Only 1 ea PO DAILY 5. Acetaminophen [Tylenol 325mg (*)] 325 - 650 mg PO DAILY PRN 6. Aspirin EC [Aspirin EC 81 mg (*)] 81 mg PO HS 7. Zolpidem Tartrate [Ambien 10 mg] 10 mg PO HS 8. Allopurinol [Allopurinol 100 MG (*)] 250 mg PO DAILY Discontinue: 1. Lisinopril 2. Amlodipine 3. [place] PENDING STUDIES/LABS 1. CXR - prior to follow-up F/U APPOINTMENTS 1. Infusion clinic - 07/24/17, 2 PM 2. Sterling Holden - 07/26/17, 1:30 PM 3. Nestor Zee - as directed
[2017-07-23] MEDS: ACETAMINOPHEN 325 MG TAB PO PRN (17:55)
--- NOTE | 2017-07-24 15:05 | ASDISCHSUM ---
Discharge Information Plan Status:IV ABX/Infusion Medically Cleared to Leave:07/23/2017 Discharge Date:07/23/2017 06:13 PM CM D/C Disposition:Home, Routine, Self-Care ADT D/C Disposition:Home, Routine, Self-Care Projected Discharge Date:07/23/2017 12:00 AM Transportation at D/C:Family Discharge Delay Reason: Follow-Up Date:07/23/2017 12:00 AM Discharge Slot: Final Diagnosis:R empyema, HTN Placement Information Referral Type:Home Infusion Referral ID:[id number] Provider Name:[facility] (Former[facility]) Address 1:[address] Address 2: City:[place] Selection Factors: State:[place] Patient Contact Information Contact Name:LIZZ Relationship: Address:[address] [place] [address] [place] City:[place] Alternate Phone: State/Zip Code:[place] [address] Email: Financial Information Financial Class: Primary Plan Desc:MEDICARE INPATIENT Primary Plan Number:[id number] Secondary Plan Desc:AARP/MDR SUPPLEMENT Secondary Plan Number:[id number] Assessment Information [facility] Initial CM Assessment Living Arrangements What is your living Answers: With Spouse arrangement? Who do you live with? Type Of Residence What kind of residence do Answers: House you live in? Discharge Plan Comments Coordination Status Comments Notes: CM met w/ pt for dispo planning. CM spoke w/ Dr. Zee regarding IV antibiotics going forward. Pt had a PICC line placed today. 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 Pt reports that she does not have a preference w/ a particular agency. Referrals have been made. CM to follow. Date Signed: 07/22/2017 04:48 PM Electronically Signed By:JOHN Powers [facility] Progress Note CM Note CM Note Notes: Today Feliberto spoke with [email or web address] about Pt's option for home IV antibiotics. Henri at [employer] quoted SWer $271.20 per week for IVs and supplies. Pt needs six weeks worth. Davidr met w/ Pt. in room alone to discuss her options. Pt. declined home IV antibiotics due to cost. Feliberto let [facility] know. Pt. elects to go to [facility] [place]. [facility] set up Pt an appointment at 14:00 for tomorrow based on Pt's wishes. Feliberto also consulted w/ Dr. Nestor Zee to coordinate Pt's care. Dr. Zee in agreement with plan. Pt. likely to be d/c'ed tonight by Dr. Holden's PA. Current plan: D/c this evening to home w/ . Tomorrow begin daily IV antibiotic infusions at [address] [place] [address] at 14:00. Date Signed: 07/23/2017 04:07 PM Electronically Signed By:Leah Beyer LCSW Intervention Information
--- NOTE | 2017-07-24 15:05 | ASDISCHSUM ---
Discharge Information Plan Status:IV ABX/Infusion Medically Cleared to Leave:07/23/2017 Discharge Date:07/23/2017 06:13 PM CM D/C Disposition:Home, Routine, Self-Care ADT D/C Disposition:Home, Routine, Self-Care Projected Discharge Date:07/23/2017 12:00 AM Transportation at D/C:Family Discharge Delay Reason: Follow-Up Date:07/23/2017 12:00 AM Discharge Slot: Final Diagnosis:R empyema, HTN Placement Information Referral Type:Home Infusion Referral ID:[id number] Provider Name:[facility] ([facility] Address 1:[address] Address 2: City:[place] Selection Factors: State:[place] Patient Contact Information Contact Name:LIZZ Relationship: Address:[address] [place] [address] [place] City:[place] Alternate Phone: State/Zip Code:[place] [address] Email: Financial Information Financial Class: Primary Plan Desc:MEDICARE INPATIENT Primary Plan Number:[id number] Secondary Plan Desc:AARP/MDR SUPPLEMENT Secondary Plan Number:[id number] Assessment Information [facility] Initial CM Assessment Living Arrangements What is your living Answers: With Spouse arrangement? Who do you live with? Type Of Residence What kind of residence do Answers: House you live in? Discharge Plan Comments Coordination Status Comments Notes: CM met w/ pt for dispo planning. CM spoke w/ Dr. Zee regarding IV antibiotics going forward. Pt had a PICC line placed today. 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 Pt reports that she does not have a preference w/ a particular agency. Referrals have been made. CM to follow. Date Signed: 07/22/2017 04:48 PM Electronically Signed By:JOHN Powers [facility] Progress Note CM Note CM Note Notes: Today Feliberto spoke with [employer] about Pt's option for home IV antibiotics. Henri at [employer] quoted SWer $271.20 per week for IVs and supplies. Pt needs six weeks worth. Davidr met w/ Pt. in room alone to discuss her options. Pt. declined home IV antibiotics due to cost. Feliberto let [facility] know. Pt. elects to go to [facility] [place]. [facility] set up Pt an appointment at 14:00 for tomorrow based on Pt's wishes. Feliberto also consulted w/ Dr. Nestor Zee to coordinate Pt's care. Dr. Zee in agreement with plan. Pt. likely to be d/c'ed tonight by Dr. Holden's PA. Current plan: D/c this evening to home w/ . Tomorrow begin daily IV antibiotic infusions at [address] [place] [address] at 14:00. Date Signed: 07/23/2017 04:07 PM Electronically Signed By:Leah Beyer LCSW Intervention Information
--- NOTE | 2017-07-24 15:05 | ASDISCHSUM ---
Discharge Information Plan Status:IV ABX/Infusion Medically Cleared to Leave:07/23/2017 Discharge Date:07/23/2017 06:13 PM CM D/C Disposition:Home, Routine, Self-Care ADT D/C Disposition:Home, Routine, Self-Care Projected Discharge Date:07/23/2017 12:00 AM Transportation at D/C:Family Discharge Delay Reason: Follow-Up Date:07/23/2017 12:00 AM Discharge Slot: Final Diagnosis:R empyema, HTN Placement Information Referral Type:Home Infusion Referral ID:[id number] Provider Name:[facility] ([facility] Address 1:[address] Address 2: City:[place] Selection Factors: State:[place] Patient Contact Information Contact Name:LIZZ Relationship: Address:[address] [place] [address] [place] City:[place] Alternate Phone: State/Zip Code:[place] [address] Email: Financial Information Financial Class: Primary Plan Desc:MEDICARE INPATIENT Primary Plan Number:[id number] Secondary Plan Desc:AARP/MDR SUPPLEMENT Secondary Plan Number:[id number] Assessment Information [facility] Initial CM Assessment Living Arrangements What is your living Answers: With Spouse arrangement? Who do you live with? Type Of Residence What kind of residence do Answers: House you live in? Discharge Plan Comments Coordination Status Comments Notes: CM met w/ pt for dispo planning. CM spoke w/ Dr. Zee regarding IV antibiotics going forward. Pt had a PICC line placed today. 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 Pt reports that she does not have a preference w/ a particular agency. Referrals have been made. CM to follow. Date Signed: 07/22/2017 04:48 PM Electronically Signed By:JOHN Powers [facility] Progress Note CM Note CM Note Notes: Today Feliberto spoke with [employer] about Pt's option for home IV antibiotics. Hneri at [employer] quoted SWer $271.20 per week for IVs and supplies. Pt needs six weeks worth. Davidr met w/ Pt. in room alone to discuss her options. Pt. declined home IV antibiotics due to cost. Feliberto let [facility] know. Pt. elects to go to [facility] [place]. [facility] set up Pt an appointment at 14:00 for tomorrow based on Pt's wishes. Feliberto also consulted w/ Dr. Nestor Zee to coordinate Pt's care. Dr. Zee in agreement with plan. Pt. likely to be d/c'ed tonight by Dr. Holden's PA. Current plan: D/c this evening to home w/ . Tomorrow begin daily IV antibiotic infusions at [address] [place] [address] at 14:00. Date Signed: 07/23/2017 04:07 PM Electronically Signed By:Leah Beyer LCSW Intervention Information
== END 2017-07-23 18:13 | disposition home or self-care (01) | DRG 178 ==
LOC: FIMAGING 11:16 → F2W 14:56 → F2N 15:33 → F2W 07-21 13:05
PROVIDERS: ADMIT Thoracic Surgery (Cardiothoracic Vascular Surgery); ATTEND Thoracic Surgery (Cardiothoracic Vascular Surgery)
PROC: 0W9930Z Drainage of Right Pleural Cavity with Drainage Device, Percutaneous Approach (ICD-10-PCS; principal; 2017-07-20 14:30)
PROC: 02HV33Z Insertion of Infusion Device into Superior Vena Cava, Percutaneous Approach (ICD-10-PCS; 2017-07-22)
DX: J86.9 Pyothorax without fistula (principal); Q24.5 Malformation of coronary vessels; I12.9 Hypertensive chronic kidney disease with stage 1 through stage 4 chronic kidney disease, or unspecified chronic kidney disease; N18.4 Chronic kidney disease, stage 4 (severe); E03.9 Hypothyroidism, unspecified
CPT/HCPCS: C1751; J2250; J2310; J3010; J3370

== ENCOUNTER → 2017-07-26 | Outpatient (CLI) | payer OTHER, MEDICARE | LOC: FIMAGING 15:18 | PROVIDERS: ATTEND Thoracic Surgery (Cardiothoracic Vascular Surgery) | DX: R91.8 Other nonspecific abnormal finding of lung field (principal); Z98.890 Other specified postprocedural states; Z87.09 Personal history of other diseases of the respiratory system ==

== ENCOUNTER → 2017-07-26 | Outpatient (CLI) | payer OTHER, MEDICARE | LOC: FIMAGING 12:09 | PROVIDERS: ATTEND Thoracic Surgery (Cardiothoracic Vascular Surgery) | DX: Z09 Encounter for follow-up examination after completed treatment for conditions other than malignant neoplasm (principal); R05 Cough; Z87.09 Personal history of other diseases of the respiratory system ==

== ENCOUNTER 2017-07-27 09:04 | Inpatient (IN) | payer OTHER, MEDICARE ==
[2017-07-27] MEDS ORDERED: LR 1,000 ML IV ONE (10:23)
[2017-07-27] MEDS ORDERED: BUPIVACAINE 0.25% 30 ML SDV ONE (10:48)
--- NOTE | 2017-07-27 12:25 | PDHPUP ---
History & Physical Update H&P update statement: This history and physical update is based on an assessment of the patient which was completed after admission or registration (within 24 hours), but prior to the surgery/procedure. H&P update: H&P reviewed & patient examined H&P changes: persistent malaise, anorexia, cough
[2017-07-27] MEDS ORDERED: MIDAZOLAM 2 MG/2 ML VIAL IVP ONE (12:50)
--- NOTE | 2017-07-27 12:52 | PDANEPAE ---
ANE History of Present Illness here for decortication s/p atrial mass removal ANE Past Medical History - Cardiovascular History Hx Hypertension: Yes Hx Arrhythmias: No Hx Chest Pain: No Hx Coronary Artery / Peripheral Vascular Disease: No Hx CHF / Valvular Disease: No Hx Palpitations: No Cardiovascular History Comment: HTN well controlled. 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 "lost a little due to stroke" L side sl weaker. 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 insomnia-uses Lunesta - Chronic Pain History Chronic Pain: No (does have 5/10 pain with coughing to right lateral lung area) - Surgical History Prior Surgeries: L shoulder sx-impingement 01-10;. bilat cataract extractions w/ IOL. lap ari. L lower lobe lobectomy. L shoulder sx 1996, Atrial begnign tumor removal 06/12/17, Pneumthorax,. eye sx age 21. T and A ~age 8 ANE Review of Systems Review of Systems: ANE Patient History - Allergies Allergies/Adverse Reactions: hydrochlorothiazide Allergy (Severe, Verified 07/27/17 11:01) Rash - Home Medications Home medications: home medication list seen and reviewed Home Medications: Levothyroxine [Synthroid 75 mcg (*)] 75 mcg PO DAILY 02/01/16 [Last Taken ] Metoprolol Succinate Xr [Toprol Xl 25 mg (*)] 12.5 mg PO DAILY 02/01/16 [Last Taken 07/27/17] Atorvastatin Calcium [Lipitor 10 mg (*)] 10 mg PO DAILY 04/05/17 [Last Taken 10/12] Aspirin EC [Aspirin EC 81 mg (*)] 81 mg PO HS 07/20/17 [Last Taken 2 Days Ago ~ 07/18/17] Allopurinol [Allopurinol 100 MG (*)] 250 mg PO DAILY 07/27/17 [Last Taken ] Benzonatate [Tessalon Pearles (RX)] 100 mg PO DAILY PRN 07/27/17 [Last Taken Unknown] Codeine Phosphate/Guaifenesin [Guaifenesin-Codeine Syrup] 10 ml PO Q4HRS PRN 10/12 [Last Taken Unknown] Zolpidem Tartrate [Ambien 5MG (*)] 10 mg PO HS 07/27/17 [Last Taken 07/26/17] - NPO status NPO Since - Liquids (Date): 07/27/17 NPO Since - Liquids (Time): 07:00 NPO Since - Solids (Date): 07/26/17 NPO Since - Solids (Time): 19:00 - Smoking Hx Smoking Status: Never smoked ANE Labs/Vital Signs - Vital Signs Blood Pressure: 104/73 Heart Rate: 97 Respiratory Rate: 16 O2 Sat (%): 94 Height: 157.48 cm Weight: 54.431 kg ANE Physical Exam - Airway Neck exam: FROM Mallampati Score: Class 1 - Pulmonary Pulmonary: no respiratory distress - Cardiovascular Cardiovascular: regular rate and rhythym, no murmur, rub, or gallop - ASA Status ASA Status: III ANE Anesthesia Plan Anesthesia Plan: general endotracheal anesthesia
[2017-07-27] MEDS ORDERED: PROPOFOL 200 MG/20 ML VIAL ONE ×2 (13:10→14:00)
[2017-07-27] MEDS ORDERED: fentaNYL 100 MCG/2 ML INJ ONE ×3 (13:11→14:20)
[2017-07-27] MEDS ORDERED: MIDAZOLAM 2 MG/2 ML VIAL ONE (13:12)
[2017-07-27] MEDS ORDERED: HYDROmorphONE/DILAUDID 1 MG/ML INJ IVP PRN (13:40)
[2017-07-27] MEDS ORDERED: ONDANSETRON 4 MG/2 ML VIAL IVP PRN ×2 (13:40→15:49)
[2017-07-27] MEDS ORDERED: NALOXONE HCL 0.4 MG/ML INJ IVP PRN (13:40)
[2017-07-27] MEDS ORDERED: fentaNYL 100 MCG/2 ML INJ IVP PRN (13:40)
[2017-07-27] MEDS ORDERED: PROMETHAZINE HCL 25 MG/ML INJ IVP PRN (13:40)
[2017-07-27] MEDS ORDERED: ALBUTEROL 3 ML DEYVIAL IH PRN (13:40)
[2017-07-27] MEDS ORDERED: SUGAMMADEX SODIUM 200 MG/2 ML VIAL IVP ONE (13:56)
[2017-07-27] MEDS ORDERED: METOCLOPRAMIDE 10 MG/2 ML VIAL IVP PRN (13:57)
[2017-07-27] MEDS ORDERED: METOCLOPRAMIDE 10 MG TAB PO PRN (13:57)
[2017-07-27] MEDS ORDERED: ACETAMINOPHEN 325 MG TAB PO PRN (13:57)
[2017-07-27] MEDS: guaiFENesin/CODEINE PHOS 10 ML UDCUP PO PRN ×2 (14:52→21:53)
--- NOTE | 2017-07-27 15:04 | GOP ---
[f rep st] OPERATIVE REPORT DATE OF OPERATION: 07/27/2017 SURGEON: Sterling Holden DO ANESTHESIOLOGIST: Anshul Sher MD PREOPERATIVE DIAGNOSIS: Persistent chest wall abscess. POSTOPERATIVE DIAGNOSIS: Persistent chest wall abscess. PROCEDURE PERFORMED: Incision and drainage of right chest wall abscess. FINDINGS: DESCRIPTION OF PROCEDURE: The patient was brought to the operating room, placed in the lateral decub itus position. She was prepped and draped in sterile classical manner. The previous right mini-thor acotomy incision through the inferior pole of the breast was reopened. There was edema in the tissue s. Upon entering the subpectoral space, I was met with approximately 15 cc of purulent material, whi ch was sent for cultures. It did not track intrapleurally. In fact, the lung was densely adherent u p against the chest wall. This cavity measured 3 x 1 cm. It was copiously irrigated and probed. It was quite densely adherent and for that reason it did not probe further. I then irrigated the wound , placed a wound VAC in the standard fashion. I also removed 2 temporary pacemaker wires, which had been left intentionally from the lower pole incision near the chest tube site. The patient was retur yina to the recovery room in stable condition. /[id number]/MODL
[2017-07-27] MEDS ORDERED: ALTEPLASE 2 MG VIAL IVP PRN (15:51)
[2017-07-27] MEDS: BENZONATATE 100 MG CAP PO PRN (16:47)
[2017-07-27] MEDS ORDERED: VANCOMYCIN 750 MG in D5W 150 ML IV SCH (17:30)
--- NOTE | 2017-07-27 18:26 | PCMIDPN ---
Assessment/Plan: Assessment/Plan: Chest wall abscess status post drainage: Previously drained percutaneously with negative cultures and AFB smear. Operative findings reviewed with Dr. Holden with subcutaneous purulence noted that did not appear to penetrate into pleural space. Gram stain negative on operative specimens. Will continue vancomycin pending additional culture data. Will add doxycycline as rarely mycoplasma can be associated with postoperative infection after cardiac surgery. Sample sent for mycoplasma by PCR. Follow up culture data as available. 07/27/17 18:25 07/27/17 18:25 Subjective: Patient readmitted with persistent fatigue and malaise as well as cough with some blood streaks sputum. Went to OR today for drainage which revealed subcutaneous purulent collection which did not appear to penetrate into pleural space. Wound VAC now in place postoperatively. Patient has been receiving vancomycin on [address] [place] since recent discharge. Objective: Vital Signs Temp Pulse Resp BP Pulse Ox 36.8 C 76 16 115/70 97 07/27/17 17:58 07/27/17 17:58 07/27/17 17:58 07/27/17 17:58 07/27/17 17:58 Microbiology 07/27/17 13:42 Gram Stain - Final Chest - Aspirate 07/27/17 13:42 Gram Stain - Final Chest - Eswab 07/26/17 07/27/17 07/28/17 05:59 05:59 05:59 Intake Total 875 Output Total 5 Balance 870 Operative Gram stain x2 with white blood cells present, no organism seen AFB smear pending Laboratory Tests 07/25/17 14:20 Vancomycin Trough 11.1 - Physical Exam General Appearance: alert, no apparent distress EENT: No scleral icterus, No conjunctival petechiae Respiratory: lungs clear, No respiratory distress Cardiac/Chest: other (Wound VAC in place right lateral chest wall without surrounding erythema) Abdomen: No non-tender, No distended - Line/s RUE PICC Lines: No drainage, No erythema ICD10 Worksheet Patient Problems: Problems Problem Status Onset Acute blood loss anemia Acute s/p excision of left atrial mass Acute ~06/02/17 CKD (chronic kidney disease) stage 3, GFR 30-59 ml/min Chronic Hemiparesis affecting left side as late effect of stroke Chronic Left atrial mass Chronic
[2017-07-27] MEDS: ASPIRIN EC 81 MG TAB PO SCH (21:53)
[2017-07-27] MEDS: DOXYCYCLINE HYCLATE 100 MG CAP/TAB PO SCH (21:53)
[2017-07-27] MEDS: HYDROCODONE/APAP 5/325 TAB PO PRN (21:53)
[2017-07-27] MEDS: ZOLPIDEM TARTRATE 5 MG TAB PO PRN (21:55)
[2017-07-28] MEDS: HEPARIN 5,000 UNIT/0.5 ML SYR SC SCH ×3 (06:13→21:38)
[2017-07-28 06:24] LABS: PLATELET COUNT 375 10^3/uL (150-400)
--- NOTE | 2017-07-28 06:26 | SOAPPROG ---
SOAP Progress Note Assessment/Plan: POD #1: Right chest wall I&D drainage with vac placement - Vac management to be arranged at home - ABX as per ID Subjective: Feels better this morning. Better appetite. Less coughing. Pain well- controlled. Objective: Vital Signs Temp Pulse Resp BP Pulse Ox 36.8 C 79 16 108/70 98 07/27/17 23:34 07/27/17 23:34 07/27/17 23:34 07/27/17 23:34 07/27/17 23:34 Microbiology 07/27/17 13:42 Gram Stain - Final Chest - Aspirate 07/27/17 13:42 Gram Stain - Final Chest - Eswab 07/27/17 07/28/17 07/29/17 05:59 05:59 05:59 Intake Total 1115 Output Total 150 Balance 965 Physical Exam - Physical Exam General Appearance: WD/WN, alert, no apparent distress Respiratory: other (right vac in place ), No respiratory distress Cardiac/Chest: regular rate, rhythm Abdomen: non-tender, soft, No distended Skin: normal color, warm/dry Extremities: No pedal edema Neuro/Psych: no motor/sensory deficits, alert, normal mood/affect, oriented x 3 ICD10 Worksheet Patient Problems: Problems Problem Status Onset Acute blood loss anemia Acute s/p excision of left atrial mass Acute ~06/02/17 CKD (chronic kidney disease) stage 3, GFR 30-59 ml/min Chronic Hemiparesis affecting left side as late effect of stroke Chronic Left atrial mass Chronic
[2017-07-28] MEDS: LEVOTHYROXINE 75 MCG TAB PO SCH (08:08)
[2017-07-28] MEDS: ALLOPURINOL 100 MG TAB PO SCH (08:47)
[2017-07-28] MEDS: METOPROLOL SUCCINATE XR 25 MG TAB PO SCH (08:48)
[2017-07-28] MEDS: DOXYCYCLINE HYCLATE 100 MG CAP/TAB PO SCH ×2 (08:48→21:39)
[2017-07-28] MEDS: ATORVASTATIN CALCIUM 10 MG TAB PO SCH (08:48)
--- NOTE | 2017-07-28 09:40 | ASMTCASEMG ---
Living Arrangements What is your living Answers: With Spouse arrangement? Who do you live with? Type Of Residence What kind of residence do Answers: House you live in? Discharge Plan Comments Coordination Status Comments Notes: Pt is a 77 y/o female admitted for empyema. PT has been ordered and awaiting recommendations. Anticipates that pt will most likely d/c independent w/ supportive when medically stable. CM available for d/c needs. Date Signed: 07/28/2017 09:40 AM Electronically Signed By:JOHN Powers
[2017-07-28] MEDS: FLUTICASONE NASAL 120 SPRAYS/16 GM MDI EACHNARE SCH (13:21)
--- NOTE | 2017-07-28 15:28 | ASMTCMCOM ---
CM Note CM Note Notes: 07/28/2017 Case Management Note Met w/pt. Pt lives with Rob in one floor ranch home. She is the former director of [employer]. Case Management completed wound vac application for home, awaiting approval. Pt chose [facility] for home RN visits. Notified [facility] who accepted pt. Confirmed address and phone number. Pt mentioned possibly continuing iv abx at d/c. Pt states she is willing to pay out of pocket for iv vanco if cost is not prohibitive and duration is short. Otherwise, pt plans to return to the outpatient infusion clinic if iv abx need to continue after d/c for a long period of time. Case Management d/c poc: Home with home health RN when medically stable with follow up as directed. Date Signed: 07/28/2017 03:28 PM Electronically Signed By:Rula Ceron RN
--- NOTE | 2017-07-28 15:28 | ASMTCMCOM ---
CM Note CM Note Notes: 07/28/2017 Case Management Note Met w/pt. Pt lives with Rob in one floor ranch home. She is the former director of [employer]. Case Management completed wound vac application for home, awaiting approval. Pt chose [facility] for home RN visits. Notified [facility] who accepted pt. Confirmed address and phone number. Pt mentioned possibly continuing iv abx at d/c. Pt states she is willing to pay out of pocket for iv vanco if cost is not prohibitive and duration is short. Otherwise, pt plans to return to the outpatient infusion clinic if iv abx need to continue after d/c for a long period of time. Case Management d/c poc: Home with home health RN when medically stable with follow up as directed. Date Signed: 07/28/2017 03:28 PM Electronically Signed By:Rula Ceron RN
--- NOTE | 2017-07-28 15:28 | ASMTCMCOM ---
CM Note CM Note Notes: 07/28/2017 Case Management Note Met w/pt. Pt lives with Rob in one floor ranch home. She is the former director of [employer]. Case Management completed wound vac application for home, awaiting approval. Pt chose [facility] for home RN visits. Notified [facility] who accepted pt. Confirmed address and phone number. Pt mentioned possibly continuing iv abx at d/c. Pt states she is willing to pay out of pocket for iv vanco if cost is not prohibitive and duration is short. Otherwise, pt plans to return to the outpatient infusion clinic if iv abx need to continue after d/c for a long period of time. Case Management d/c poc: Home with home health RN when medically stable with follow up as directed. Date Signed: 07/28/2017 03:28 PM Electronically Signed By:Rula Ceron RN
--- NOTE | 2017-07-28 17:44 | PCMIDPN ---
Assessment/Plan: Assessment/Plan: * Chest wall abscess status post drainage: Previously drained percutaneously with negative cultures and AFB smear. Operative cultures remain negative to date. Typical pathogen should have grown at this point in time from initial cultures. Based on this finding, will discontinue vancomycin given potential for nephrotoxicity with underlying renal disease present. Will continue doxycycline as this provides activity against Gram-positive isak, some anaerobic isak such as P. acnes, and mycoplasma. Follow up cultures as available as well as mycoplasma PCR. If discharge tomorrow, plan to continue oral doxycycline as outpatient with follow-up in our office next week with removal of PICC line prior to discharge. 07/28/17 17:41 07/28/17 17:42 07/28/17 17:44 Subjective: Patient feels better today. No chest pain. Appetite improved. Objective: Vital Signs Temp Pulse Resp BP Pulse Ox 36.6 C 83 16 123/62 H 92 07/28/17 15:22 07/28/17 15:22 07/28/17 15:22 07/28/17 15:22 07/28/17 15:22 Microbiology 07/27/17 13:42 Mycobacterial Smear (BHARGAV) - Final Chest - Aspirate 07/27/17 13:42 Gram Stain - Final Chest - Aspirate 07/27/17 13:42 Gram Stain - Final Chest - Eswab Laboratory Results 07/28/17 06:10 07/28/17 06:10 07/27/17 07/28/17 07/29/17 05:59 05:59 05:59 Intake Total 1415 960 Output Total 650 100 Balance 765 860 Vancomycin/doxycycline Operative cultures Gram stain negative with no growth on cultures; AFB smear negative Operative specimen pending for mycoplasma PCR - Physical Exam General Appearance: alert, no apparent distress EENT: No scleral icterus, No conjunctival petechiae Cardiac/Chest: other (Wound VAC in place; no surrounding erythema or significant tenderness) Abdomen: non-tender, No distended - Line/s RUE PICC Lines: No drainage, No erythema ICD10 Worksheet Patient Problems: Problems Problem Status Onset Acute blood loss anemia Acute s/p excision of left atrial mass Acute ~06/02/17 CKD (chronic kidney disease) stage 3, GFR 30-59 ml/min Chronic Hemiparesis affecting left side as late effect of stroke Chronic Left atrial mass Chronic
--- NOTE | 2017-07-28 19:11 | GCON ---
[f rep st] CONSULTATION PULMONARY CONSULTATION DATE OF CONSULTATION: 07/28/2017 HISTORY OF PRESENT ILLNESS: This patient is a 77-year-old female, who has had a fairly complicated c ourse over the last several months that has resulted in a pleural parenchymal abnormality on a CT sca n. 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 At the time, she underwent a mini thoracotomy with excision of the atrial mass, which was complicated by air leaks and additional chest tubes needed for ongoing management. She was eventually discharge d home in mid May but developed anorexia and chills, and a follow-up CT scan showed loculated e ffusions. This was aspirated in Interventional Radiology on 07/20 where they found pus, but cultures were negative. She was treated with empiric vancomycin and discharged home. However, repeat CT sca nning with ongoing fevers on 07/26 showed increase in subcutaneous density, a fluid collection, as we ll as an increase in what appears to be a parenchymal abnormality, as well. She was taken back to [facility] OR by Dr. Holden where he did incision and drainage, found more pus in this area, and palpated dense lung tissue. At that time, a wound VAC was placed, and she subsequently has done fairly well. Cayla oleary this period of time, she has developed a cough, which has been present for about the last 2 weeks. It has primarily been nonproductive, occasionally producing garcia sputum and some streaks of blood m ore recently, but it has been difficult to produce any sputum at all. She also has chronic sinus dis ease, having had sinus surgery in the distant past, and has chronic postnasal drip and has been using normal saline rinses in her sinuses. There is no history of COPD or asthma, and she has little to n o symptoms of reflux disease, as well. REVIEW OF SYSTEMS: Otherwise negative. PAST MEDICAL HISTORY: 1. Degenerative joint disease. 2. Cataracts. 3. Stroke as described above. 4. Gout. 5. 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 6. Irritable bowel syndrome. 7. Hypothyroidism. 8. B12 deficiency. 9. Hypertension. 10. The atrial mass as described above. 11. Remote history of possible cocci, though this is not confirmed. She underwent a lobectomy for t his remotely. 12. Also part of her past medical history includes the empyema as described above next. PAST SURGICAL HISTORY: A left lower lobectomy remotely, shoulder surgery, cataract surgery, cholecys tectomy, polypectomy in the past, and tonsillectomy, as well as her recent surgeries. FAMILY HISTORY: Colon cancer, hypertension, coronary artery disease. SOCIAL HISTORY: She is a lifelong nonsmoker. Occasional alcohol but no recreational drugs. CURRENT MEDICATIONS: Include Keyser, allopurinol, Lipitor, Tessalon, doxycycline, codeine, guaifenesi n, Synthroid, Reglan, Toprol-XL, Zofran, Ambien. Vancomycin has been subsequently discontinued. PHYSICAL EXAMINATION: VITAL SIGNS: Today, she was afebrile. Blood pressure of 119/65, heart rate 7 3, respirations 77, oxygen saturation 95% on room air. GENERAL: She was awake and alert, in no appa rent distress, and able to speak in full sentences without using accessory muscles for breathing. HE ENT: Pupils equally round and reactive to light. Nonicteric and noninjected. Mucous membranes mois t without erythema or exudate. NECK: Supple without adenopathy or jugular vein distention. LUNGS: Breath sounds were remarkably clear to auscultation bilaterally without wheezes, rubs, or rales. HE ART: Regular rate and rhythm without obvious murmur. ABDOMEN: Soft, nontender, nondistended withou t hepatosplenomegaly. EXTREMITIES: Show no clubbing, cyanosis, or edema. NEUROLOGIC: Nonfocal. S KIN: Warm and dry without evidence of rash. OBJECTIVE DATA: CT scan as described above. White count is only 5.6, hematocrit 27.5, platelets of 375, and an unremarkable basic metabolic panel. Cultures so far have been unrevealing to date. ASSESSMENT AND PLAN: Cough. This is likely being driven primarily by her lung abnormality on her CT scan, which presumably is related to her previous surgeries, as well as a loculated empyema. Pus fo und in that space is always abnormal. It has been adequately drained on at least 2 occasions at this point. There is also adjacent parenchymal disease evident on the CT scan, which is probably what wa s palpated intraoperatively. This looks atelectatic to me, but it could be representing an early abs cess formation, though I did not appreciate that on the CT scan itself. I do not feel a bronchoscopy is required of this as I see nothing endobronchial, and she does not have purulent sputum production . Her cough may be also driven in part by her chronic sinus disease, so I added Flonase today, but I think the bulk of cough is coming from the abnormality in and around her lungs. Infectious Disease is following, and that is where the doxycycline has come from. Will continue to follow up on her cul turgregory. I will continue to follow closely at this time. /[id number]/MODL
[2017-07-28] MEDS: ASPIRIN EC 81 MG TAB PO SCH (21:39)
[2017-07-28] MEDS: HYDROCODONE/APAP 5/325 TAB PO PRN (21:39)
[2017-07-28] MEDS: ZOLPIDEM TARTRATE 5 MG TAB PO PRN (21:41)
[2017-07-28] MEDS: guaiFENesin/CODEINE PHOS 10 ML UDCUP PO PRN (21:42)
[2017-07-29] MEDS: BENZONATATE 100 MG CAP PO PRN (06:20)
[2017-07-29] MEDS: HEPARIN 5,000 UNIT/0.5 ML SYR SC SCH (06:21)
--- NOTE | 2017-07-29 06:32 | SOAPPROG ---
SOAP Progress Note Assessment/Plan: POD #2: Right chest wall I&D with vac placement Right chest wall abscess (h/o MICS atrial mass excision with post-op empyema s/ p IR drainage) - Vac management to be arranged at home - ABX as per ID (stop vancomycin, cont doxycycline) Subjective: Still coughing although feeling better today with increased appetite. Objective: Vital Signs Temp Pulse Resp BP Pulse Ox 36.8 C 89 16 106/63 91 L 07/29/17 04:00 07/29/17 04:00 07/29/17 04:00 07/29/17 04:00 07/29/17 04:00 Microbiology 07/27/17 13:42 Mycobacterial Smear (BHARGAV) - Final Chest - Aspirate 07/27/17 13:42 Gram Stain - Final Chest - Aspirate 07/27/17 13:42 Gram Stain - Final Chest - Eswab Laboratory Results 07/28/17 06:10 07/28/17 06:10 07/28/17 07/29/17 07/30/17 05:59 05:59 05:59 Intake Total 1415 1160 Output Total 650 1100 Balance 765 60 Physical Exam - Physical Exam General Appearance: WD/WN, alert, no apparent distress EENT: No scleral icterus (R), No scleral icterus (L) Neck: normal inspection Respiratory: other (vac in place), No respiratory distress Cardiac/Chest: regular rate, rhythm Abdomen: non-tender, soft, No distended Skin: normal color, warm/dry Extremities: No pedal edema Neuro/Psych: no motor/sensory deficits, alert, normal mood/affect, oriented x 3 ICD10 Worksheet Patient Problems: Problems Problem Status Onset Acute blood loss anemia Acute s/p excision of left atrial mass Acute ~06/02/17 CKD (chronic kidney disease) stage 3, GFR 30-59 ml/min Chronic Hemiparesis affecting left side as late effect of stroke Chronic Left atrial mass Chronic
[2017-07-29] MEDS: LEVOTHYROXINE 75 MCG TAB PO SCH (07:35)
[2017-07-29] MEDS: FLUTICASONE NASAL 120 SPRAYS/16 GM MDI EACHNARE SCH (07:42)
[2017-07-29 09:19] VITALS: RESP 17
[2017-07-29] MEDS: ALLOPURINOL 100 MG TAB PO SCH (09:21)
[2017-07-29] MEDS: DOXYCYCLINE HYCLATE 100 MG CAP/TAB PO SCH (09:21)
[2017-07-29] MEDS: METOPROLOL SUCCINATE XR 25 MG TAB PO SCH (09:22)
[2017-07-29] MEDS: ATORVASTATIN CALCIUM 10 MG TAB PO SCH (09:23)
[2017-07-29] MEDS: guaiFENesin/CODEINE PHOS 10 ML UDCUP PO PRN (09:26)
--- NOTE | 2017-07-29 09:35 | ASMTCMCOM ---
CM Note CM Note Notes: Chart reviewed.Met with patient to review dc plan of care. She is to go home with wound vac and [facility] Home Health services. Awaiting approval from [facility]. CM to follow. Date Signed: 07/29/2017 09:35 AM Electronically Signed By:Dang Hurt RN
--- NOTE | 2017-07-29 09:35 | ASMTCMCOM ---
CM Note CM Note Notes: Chart reviewed.Met with patient to review dc plan of care. She is to go home with wound vac and [facility] Home Health services. Awaiting approval from [facility]. CM to follow. Date Signed: 07/29/2017 09:35 AM Electronically Signed By:Dang Hurt RN
--- NOTE | 2017-07-29 09:35 | ASMTCMCOM ---
CM Note CM Note Notes: Chart reviewed.Met with patient to review dc plan of care. She is to go home with wound vac and [facility] Home Health services. Awaiting approval from [facility]. CM to follow. Date Signed: 07/29/2017 09:35 AM Electronically Signed By:Dang Hurt RN
--- NOTE | 2017-07-29 09:39 | PCMIDPN ---
Assessment/Plan: Assessment: Right-sided complex empyema-culture negative. At this point she is continuing on oral doxycycline empiric therapy. She is to complete a 4 week course of this antibiotic as an outpatient. Stable to be discharged today. Follow-up in office in 1 week. Plan: 1. Continue oral doxycycline. 2. Okay for discharge from ID standpoint. Follow up in our office in 1 week time. 07/29/17 14:12 Subjective: Patient is resting in her chair in her hospital room. Her spirits are a bit low. Otherwise she feels good. Objective: Doxycycline # 1 Vital Signs Temp Pulse Resp BP Pulse Ox 36.7 C 77 17 131/74 H 95 07/29/17 08:00 07/29/17 08:00 07/29/17 08:00 07/29/17 08:00 07/29/17 08:00 Microbiology 07/27/17 13:42 Mycobacterial Smear (BHARGAV) - Final Chest - Aspirate 07/27/17 13:42 Gram Stain - Final Chest - Aspirate 07/27/17 13:42 Gram Stain - Final Chest - Eswab Laboratory Results 07/28/17 06:10 07/28/17 06:10 07/28/17 07/29/17 07/30/17 05:59 05:59 05:59 Intake Total 1415 1160 Output Total 650 1100 Balance 765 60 - Physical Exam General Appearance: WD/WN, alert, no apparent distress, non-toxic Respiratory: lungs clear, normal breath sounds, No respiratory distress Cardiac/Chest: regular rate, rhythm, No tachycardia Skin: normal color, warm/dry, No rash Neuro/Psych: alert, oriented x 3, No normal mood/affect (Mildly depressed) ICD10 Worksheet Patient Problems: Problems Problem Status Onset Acute blood loss anemia Acute s/p excision of left atrial mass Acute ~06/02/17 CKD (chronic kidney disease) stage 3, GFR 30-59 ml/min Chronic Hemiparesis affecting left side as late effect of stroke Chronic Left atrial mass Chronic
--- NOTE | 2017-07-29 09:46 | WOCRNPDOC ---
WOCRN Advanced Assessment Note - Skin Integrity Problem, Advanced Assess Right Lateral Breast Surgical Wound/Incision Dressing Type: Black Vac Foam (2 pieces of black removed), Wound Vac Dressing Description: Intact Exudate Amount: Scant Exudate Color: Reddish/Yellow Exudate Characteristic(s): Serosanguinous Integumentary Issue Intervention: Dressing Changed Araceli Wound Tissue: Intact, Scarred Araceli Wound Swelling: Mild Wound Bed Constitution: Granulation Tissue, Smooth Tissue (non-granulating), Tunneling (5 cm tunnel at 10 o'clock; 2cm from 8-9 o'clock), Subcutaneous Fat Wound Edges: Well Defined Site Odor: None Site Measurement - Head-to-Toe Length X Width X Depth (cm): 4.7cmx 3cmx 2cm Skin Integrity Problem Comment: Discrete surgical wound noted to R lateral breast s/p I&D. Mixture of smooth and granulating tissues throughout, w/ subcutaneous fat and breast tissue along the medial margin. No necrosis noted, and no odor. There is a 5 cm tunnel at 10 o'clock, which I was able to palpate w / my finger to feel tissue-covered bone. 2cm tunnel from 8-9 o'clock. Periwound skin intact throughout, w/ scar tissue from previous incision noted distally. Patient had no c/o pain during the dressing change. Periwound skin prepped and draped, and one continuous piece of black vac Simplace foam packed into wound bed. Vac settings resume at -125mmHg low, continuous suction. Report given to endless track vehicle mechanicANTONIA Mata. Also spoke w/ CM Sofie, who is prepared for patient to DC w/ a home wound vac.
[2017-07-29 12:55] VITALS: BP 130/73; PULSE 82; TEMP 98.8; O2SAT 91
--- NOTE | 2017-07-29 13:35 | PDIAF ---
- Diagnosis Diagnosis: right chest wall abscess I&D Code Status: Full Code - Medication Management Discharge Medications: Medications to Continue on Transfer Levothyroxine [Synthroid 75 mcg (*)] 75 mcg PO DAILY 02/01/16 [Last Taken ] Metoprolol Succinate Xr [Toprol Xl 25 mg (*)] 12.5 mg PO DAILY 02/01/16 [Last Taken 07/27/17] Atorvastatin Calcium [Lipitor 10 mg (*)] 10 mg PO DAILY 04/05/17 [Last Taken 10/12] Acetaminophen [Tylenol 325mg (*)] 325 - 650 mg PO DAILY PRN #0 06/10/17 [Last Taken 07/26/17] Aspirin EC [Aspirin EC 81 mg (*)] 81 mg PO HS 07/20/17 [Last Taken 2 Days Ago ~ 07/18/17] Allopurinol [Allopurinol 100 MG (*)] 250 mg PO DAILY 07/27/17 [Last Taken ] Benzonatate [Tessalon Pearles] 100 mg PO DAILY PRN 07/27/17 [Last Taken Unknown] Codeine Phosphate/Guaifenesin [Guaifenesin-Codeine Syrup] 10 ml PO Q4HRS PRN 10/12 [Last Taken Unknown] Zolpidem Tartrate [Ambien 5MG (*)] 10 mg PO HS 07/27/17 [Last Taken 07/26/17] Doxycycline Hyclate [Vibramycin 100 MG (*)] 100 mg PO BID #60 capsule 07/29/17 [ Last Taken Unknown] Fluticasone Nasal [Flonase Nasal [place]] 2 sprays EACHNARE DAILY #0 mdi 07/29/17 [Last Taken Unknown] Discharge Medications: Refer to the Discharge Home Medication list for PRN reason. - Orders Services needed: Home Care, Registered Nurse Home Care Face to Face: I certify that this patient was under my care and that I had the required [id number] encounter meeting the encounter requirements on the discharge day. My findings support the fact that the patient is homebound as defined in Home Care Face to Face Continued: CMS Chapter 7 Medicare Benefits Manual 30.1.1 , The condition of the patient is such that there exists a normal inability to leave home and consequently, leaving home would require a considerable and taxing effort. Diet Recommendation: no restrictions on diet Diet Texture: Regular Texture Diet Wound Care Instructions: Place one continuous piece of black vac Simplace foam packed into wound bed with standard dressing. Vac settings: -125mmHg low, continuous suction. Activity/Weight Bearing Restrictions: Ok to shower if dressing is covered - Follow Up Care Current Providers and Referrals: Sterling Holden DO [Doctor of Osteopathy] - 08/03/17 9:00 am Juno Carcamo MD [Primary Care Provider] - Nestor Zee MD [Medical Doctor] - follow up as scheduled
--- NOTE | 2017-07-29 13:51 | PDDCSUM ---
Discharge Summary Discharge Summary: ADMISSION DATE: 07/27/17 DISCHARGE DATE: 07/29/17 ADMISSION DX: 1. Chest wall abscess DISCHARGE DX: 1. Chest wall abscess 2. Sinusitis PROCEDURES 07/27/17, Sterling Holden: 1. I&D right chest wall abscess with wound vac placement HOSPITAL COURSE BY PROBLEM LIST 1. Right chest wall abscess - s/p I&D with vac placement. All cultures NTD. Vancomycin stopped and doxycycline started. Vac scheduled to be changed . 2. Sinusitis - evaluated by pulmonology and Fluticasone started for chronic sinusitis. DISPOSITION Home with home health services ACTIVITY No restrictions D/C MEDICATIONS New: 1. Doxycycline Hyclate [Vibramycin 100 MG (*)] 100 mg PO BID 2. Fluticasone Nasal [Flonase Nasal [place]] 2 sprays EACHNARE DAILY Continue: 1. Levothyroxine [Synthroid 75 mcg (*)] 75 mcg PO DAILY@07 2. Metoprolol Succinate Xr [Toprol Xl 25 mg (*)] 12.5 mg PO DAILY 3. Atorvastatin Calcium [Lipitor 10 mg (*)] 10 mg PO DAILY 4. Herbals/Supplements -Info Only 1 ea PO DAILY 5. Acetaminophen [Tylenol 325mg (*)] 325 - 650 mg PO DAILY PRN 6. Aspirin EC [Aspirin EC 81 mg (*)] 81 mg PO HS 7. Zolpidem Tartrate [Ambien 10 mg] 10 mg PO HS 8. Allopurinol [Allopurinol 100 MG (*)] 250 mg PO DAILY Discontinue: 1. Vancomycin [Vancomycin (*)] 750 mg IV Q24H PENDING STUDIES/LABS 1. Labs as per ID F/U APPOINTMENTS 1. Sterling Holden - 08/03/17, 9:00 AM 2. Nestor Zee - as directed
--- NOTE | 2017-07-29 14:08 | ASMTCMCOM ---
CM Note CM Note Notes: Wound vac ordered and approved. Patient is medically stable for discharge. [facility] to follow starting tomorrow. Paperwork faxed to [facility]. CM available should other needs arise. Date Signed: 07/29/2017 02:08 PM Electronically Signed By:Dang Hurt RN
--- NOTE | 2017-07-29 14:08 | ASMTCMCOM ---
CM Note CM Note Notes: Wound vac ordered and approved. Patient is medically stable for discharge. [facility] to follow starting tomorrow. Paperwork faxed to [facility]. CM available should other needs arise. Date Signed: 07/29/2017 02:08 PM Electronically Signed By:Dang Hurt RN
--- NOTE | 2017-07-29 14:08 | ASMTCMCOM ---
CM Note CM Note Notes: Wound vac ordered and approved. Patient is medically stable for discharge. [facility] to follow starting tomorrow. Paperwork faxed to [facility]. CM available should other needs arise. Date Signed: 07/29/2017 02:08 PM Electronically Signed By:Dang Hurt RN
== END 2017-07-29 14:50 | disposition home health service (06) | DRG 603 ==
LOC: F3E 09:04 → F2W 15:50 → OBSVTOIN 16:48
PROVIDERS: ADMIT Thoracic Surgery (Cardiothoracic Vascular Surgery); ATTEND Thoracic Surgery (Cardiothoracic Vascular Surgery)
PROC: 0J960ZX Drainage of Chest Subcutaneous Tissue and Fascia, Open Approach, Diagnostic (ICD-10-PCS; principal; 2017-07-27 13:00)
DX: L02.213 Cutaneous abscess of chest wall (principal); J32.9 Chronic sinusitis, unspecified; Z86.73 Personal history of transient ischemic attack (TIA), and cerebral infarction without residual deficits; M10.9 Gout, unspecified; E03.9 Hypothyroidism, unspecified; N18.3 Chronic kidney disease, stage 3 (moderate); E53.8 Deficiency of other specified B group vitamins
CPT/HCPCS: 97161-GP; G8978-GP-CI; G8979-GP-CI; G8980-GP-CI; J0171; J2250; J2704; J3010; J3370

== ENCOUNTER → 2017-08-05 | Outpatient (CLI) | payer OTHER, MEDICARE | LOC: FIMAGING 09:49 | PROVIDERS: ATTEND Thoracic Surgery (Cardiothoracic Vascular Surgery) | DX: J98.4 Other disorders of lung (principal) ==

== ENCOUNTER → 2017-08-15 | Outpatient (CLI) | payer OTHER, MEDICARE | LOC: FIMAGING 12:16 | PROVIDERS: ATTEND Thoracic Surgery (Cardiothoracic Vascular Surgery) | DX: R91.8 Other nonspecific abnormal finding of lung field (principal) ==

== ENCOUNTER → 2017-09-12 | Outpatient (CLI) | payer OTHER, MEDICARE | LOC: FIMAGING 11:19 | PROVIDERS: ATTEND Thoracic Surgery (Cardiothoracic Vascular Surgery) | DX: Z09 Encounter for follow-up examination after completed treatment for conditions other than malignant neoplasm (principal); J86.9 Pyothorax without fistula | CPT/HCPCS: 86141-90 ==

== ENCOUNTER → 2018-03-07 | Outpatient (CLI) | payer OTHER, MEDICARE | LOC: BHFA 14:30 | PROVIDERS: ATTEND Internal Medicine Cardiovascular Disease | DX: R06.02 Shortness of breath (principal); R00.2 Palpitations; I10 Essential (primary) hypertension ==

== ENCOUNTER → 2018-06-13 | Outpatient (CLI) | payer OTHER, MEDICARE | LOC: FIMAGING 14:21 | PROVIDERS: ATTEND Internal Medicine | DX: Z12.31 Encounter for screening mammogram for malignant neoplasm of breast (principal) ==

== ENCOUNTER → 2018-07-04 | Outpatient (CLI) | payer OTHER, MEDICARE | LOC: FIMAGING 12:31 | PROVIDERS: ATTEND Internal Medicine | DX: R92.8 Other abnormal and inconclusive findings on diagnostic imaging of breast (principal) ==

== ENCOUNTER 2018-12-25 13:19 | Day surgery (SDC) | payer OTHER, MEDICARE ==
[2018-12-25] MEDS ORDERED: fentaNYL 100 MCG/2 ML INJ IVP ONE (13:22)
[2018-12-25] MEDS ORDERED: BENZOCAINE UNIT DOSE SPRAY HURRICAINE MM ONE (13:22)
[2018-12-25] MEDS ORDERED: NS 500 ML IV ONE (13:22)
[2018-12-25] MEDS ORDERED: MIDAZOLAM 2 MG/2 ML VIAL IVP ONE (13:22)
[2018-12-25] MEDS ORDERED: ATROPINE SULFATE 1 MG/10 ML SYR ONE (14:35)
--- NOTE | 2018-12-25 14:53 | PDANEPAE ---
ANE Past Medical History - Cardiovascular History Hx Hypertension: Yes Hx Arrhythmias: No Hx Chest Pain: No Hx Coronary Artery / Peripheral Vascular Disease: No Hx CHF / Valvular Disease: No Hx Palpitations: No Cardiovascular History Comment: HTN well controlled. 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 "lost a little due to stroke" L side sl weaker. 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 insomnia-uses Lunesta - Chronic Pain History Chronic Pain: No (does have 5/10 pain with coughing to right lateral lung area) - Surgical History Prior Surgeries: L shoulder sx-impingement 01-10;. bilat cataract extractions w/ IOL. lap ari. L lower lobe lobectomy. L shoulder sx 1996, Atrial begnign tumor removal 06/12/17, Pneumthorax,. eye sx age 21. T and A ~age 8 ANE Review of Systems Review of Systems: ANE Patient History - Allergies Allergies/Adverse Reactions: hydrochlorothiazide Allergy (Severe, Verified 07/27/17 11:01) Rash - Home Medications Home Medications: Levothyroxine [Synthroid 75 mcg (*)] 75 mcg PO DAILY 02/01/16 [Last Taken ] Metoprolol Succinate Xr [Toprol Xl 25 mg (*)] 12.5 mg PO DAILY 02/01/16 [Last Taken 07/27/17] Atorvastatin Calcium [Lipitor 10 mg (*)] 10 mg PO DAILY 04/05/17 [Last Taken 10/12] Aspirin EC [Aspirin EC 81 mg (*)] 81 mg PO HS 07/20/17 [Last Taken 2 Days Ago ~ 07/18/17] Allopurinol [Allopurinol 100 MG (*)] 250 mg PO DAILY 07/27/17 [Last Taken ] Benzonatate [Tessalon Pearles] 100 mg PO DAILY PRN 07/27/17 [Last Taken Unknown] Codeine Phosphate/Guaifenesin [Guaifenesin-Codeine Syrup] 10 ml PO Q4HRS PRN 10/12 [Last Taken Unknown] Zolpidem Tartrate [Ambien 5MG (*)] 10 mg PO HS 07/27/17 [Last Taken 07/26/17] - Smoking Hx Smoking Status: Never smoked ANE Labs/Vital Signs - Vital Signs Height: 160.02 cm Weight: 58.06 kg ANE Physical Exam - Airway Neck exam: FROM Mallampati Score: Class 1 Mouth exam: normal dental/mouth exam - Pulmonary Pulmonary: no respiratory distress, no rales or rhonchi, clear to auscultation - Cardiovascular Cardiovascular: regular rate and rhythym, no murmur, rub, or gallop - ASA Status ASA Status: III ANE Anesthesia Plan Anesthesia Plan: GA with mask
[2018-12-25] MEDS ORDERED: PROPOFOL 200 MG/20 ML VIAL ONE ×2 (14:56→15:26)
--- NOTE | 2018-12-25 15:12 | PDHPUP ---
History & Physical Update H&P update statement: This history and physical update is based on an assessment of the patient which was completed after admission or registration (within 24 hours), but prior to the surgery/procedure. H&P update: H&P reviewed & patient examined, no change in patient's condition since H&P completed
--- NOTE | 2018-12-25 15:47 | POSTANESTH ---
Post Anesthetic Evaluation Cardiovascular Status: Normal, Stable, Similar to Pre-Op Cond Respiratory Status: Normal, Stable, Similar to Pre-op Cond. Level of Consciousness/Mental Status: Moderately Sleepy Pain Control: Adequate, Prn Tx Ordered Nausea/Vomiting Control: Adequate, Prn Tx Ordered Complications Possibly Related to Anesthesia: None Noted
--- NOTE | 2018-12-25 16:55 | ECHO ---
[email or web address] [address] Main: [phone] Echocardiography Examination Transesophageal Name: KONG HURTADO MR#: [id number] Study Date: 12/25/2018 Study Time: 02:36 PM Date of : 1940 Age: 78 year(s) Height: 157.5 cm (62 in.) Weight: 58.06 kg (128 lb.) BSA: 1.58 m2 Gender: Female Examination: BRITANY Contrast: Image Quality: Rhythm: Heart Rate: BP: 140 mmHg/72 mmHg Indication: Eval mitral valve Procedure Staff Referring Physician: Clothing Sorter: Josefina Stallworth OSITO Reading Physician: Angeles Lipscomb MD Requesting Provider: Ordering Physician: nAgeles Lipscomb MD Indication: Eval mitral valve Conclusions Normal LV systolic function without regional wall motion abnormalities. No thrombus in the left atrial appendage. No interatrial communication with injection of agitated saline. No evidence of recurrent fibroelastoma on the mitral valve. Qaxa-lm-mnuyuppr mitral regurgitation. Mild aortic regurgitation. No aortic stenosis. Findings Left Ventricle: Normal global systolic left ventricular function. IVS: The septum is intact. Left Atrium: No mass is present in the left atrium. Left Atrium Appendage: Normal left atrial appendage. No thrombus is identified. IAS: An agitated saline study was performed and was negative for intracardiac shunting. No evidence of a patent foramen ovale. Mitral Valve: Mitral valve appears structurally normal. Mild to moderate mitral regurgitation. Aortic Valve: Patient: KONG HURTADO Study Date: 12/25/2018 Page 1 of 2 02:36 PM Aortic leaflets exhibit normal cuspal separation. Mild aortic regurgitation is present. There is no aortic stenosis. The aortic valve is trileaflet. Tricuspid Valve: Normal. Pulmonic Valve: Pulmonic leaflets exhibit normal cuspal separation. No pulmonic valve regurgitation is evident. There is no pulmonic valve stenosis. Aorta: The aorta is normal. Pulmonary Artery: The pulmonary artery morphology appears normal. Pericardium: No pericardial effusion. Exam Details Procedure Ordered: BRITANY (No Signature Object) Patient: KONG HURTADO Study Date: 12/25/2018 Page 2 of 2 02:36 PM [id number]
== END 2018-12-25 16:42 | disposition home or self-care (01) ==
LOC: FCATH 13:19
PROVIDERS: ATTEND Internal Medicine Cardiovascular Disease
PROC: B245ZZ4 Ultrasonography of Left Heart, Transesophageal (ICD-10-PCS; principal; 2018-12-25)
DX: I34.0 Nonrheumatic mitral (valve) insufficiency (principal); R53.83 Other fatigue; N18.9 Chronic kidney disease, unspecified; I12.9 Hypertensive chronic kidney disease with stage 1 through stage 4 chronic kidney disease, or unspecified chronic kidney disease; M10.9 Gout, unspecified; E03.9 Hypothyroidism, unspecified; Z86.018 Personal history of other benign neoplasm; Z86.73 Personal history of transient ischemic attack (TIA), and cerebral infarction without residual deficits
CPT/HCPCS: J0461; J2250; J2704